=== PATIENT | female | born 1970 | race Two or more races ===

== ENCOUNTER → 2023-01-13 08:35 | Outpatient (BNVA) | payer BC, SELFPAY | PROVIDERS: PCP Hospitalist; Visit Provider Nurse Practitioner Family ==

== ENCOUNTER 2023-03-21 08:03 | Outpatient (REF) | payer BC, SELFPAY ==
--- NOTE | 2023-03-21 08:13 | EEG_ITS ---
FINDINGS: Waking background activity consists of a well defined, moderate-voltage 9 to 10 hertz posterior alpha frequency intermixed anteriorly with low voltage fast frequencies. It attenuates well with eye opening. Photic stimulation is without activation. Hyperventilation was omitted. No sleep stages are identified. No focal, lateralizing, or paroxysmal discharges were seen. IMPRESSION: This waking EEG is within normal limits. MD MAGDALENE Serrano/DONIS / [id number]
== END 2023-03-21 08:04 | disposition home or self-care (01) ==
LOC: HO.NEURO 08:03
PROVIDERS: PCP Hospitalist; Visit Provider Nurse Practitioner Family
DX: R42 Dizziness and giddiness (principal); R55 Syncope and collapse; R43.1 Parosmia
CPT/HCPCS: 95816

== ENCOUNTER 2023-05-04 08:06 | Outpatient (AMB) | payer BC, SELFPAY ==
[2023-05-04 08:08] VITALS: BP 128/92; PULSE 73; O2SAT 96; BMI 30.3
--- NOTE | 2023-05-04 08:08 | MHC.OFFVIS ---
Intake Vital Signs 05/04/23 08:08 Height 5 ft 5 in Weight 182 lb 6 oz BMI 30.3 BP 128/92 H Blood Pressure Location Rt brachial Position Sitting Pulse 73 Pulse Source Pulse Oximeter Pulse Oximetry (%) 96 Oxygen Delivery Method Room Air Intake Visit Reasons: 3m follow up Headache - LVM Intake Note: Patient presents for 3 month follow up headache. Pateint states My headaches are non existent i get them here and there but not like they were Allergies No Known Allergies Allergy (Verified 05/04/23 08:10) HPI HPI Comments History of Present Illness Details 52-yr-old female presents for f/u visit. Pt denies any significant interval medical changes. Pt reports her migraine w/ aura episodes are much less frequent and less intense. Has not needed to try the Sumatriptan yet. EEG was normal. HST- not enough dadat was collected, pt needs to repeat study PFSH Surgical History Hx of cholecystectomy Family History Father Diabetes COPD (chronic obstructive pulmonary disease) Personal history of alcoholism Mother Hypertension Brother Hypertension Social History Alcohol intake: current Alcohol intake frequency: a few times a week Patient Tobacco Use Status: Never used Tobacco Review of Systems Const All systems reviewed & are unremarkable except as noted in HPI and below Physical Exam Vital Signs: Last Vital Signs Pulse 73 05/04/23 08:08 BP 128/92 H 05/04/23 08:08 Pulse Ox 96 05/04/23 08:08 Oxygen Delivery Method Room Air 05/04/23 08:08 BMI result Body Mass Index 30.3 Const General: cooperative and no acute distress Orientation/consciousness: patient oriented x3 HEENT Head: Yes normocephalic Resp Effort & Inspection: normal respiratory effort and able to speak in complete sentences Neuro General: patient oriented x3, gait normal and CN's II-XI intact bilaterally Cognition (Neuro): normal cognition Motor exam (neuro): 5/5 motor strength present throughout Psych Appearance: grossly normal Mental Status: mental status grossly normal Speech and movement: Normal speech and movement present Affect: normal affect Attitude: cooperative Thought process: Normal thought process present Thought content: Normal thought content present Insight: Good insight present (Psych) Judgement: Good judgement present (Psych) Assessment & Plan Assessment & Plan (1) Migraine with aura: Code(s): G43.109 - Migraine with aura, not intractable, without status migrainosus (2) Olfactory aura: Comment: EEG- normal. Likely migraine aura Code(s): R43.1 - Parosmia (3) Snoring: Code(s): R06.83 - Snoring (4) Excessive daytime sleepiness: Code(s): G47.19 - Other hypersomnia (5) Witnessed episode of apnea: Code(s): R06.81 - Apnea, not elsewhere classified Plan Repeat HST- message sent to reschedule EEG- normal, olfactory aura is likely migraine aura ? For acute headache treatment: Discussed importance of taking acute medications at the first sign of headache,. When needed, trial Sumatriptan 100mg tab, 1/2 - 1 tab (50-100mg) at onset of headache, may repeat in 2 hours. Max of 2 tabs (200mg) per 24 hours. May adjunct with OTC Tylenol 650mg q 4 hours, Ibuprofen 600mg q 6 hours, or Naproxen 440mg q 12 hrs prn. Previous acute migraine medication trials: Ibuprofen. Did try a sample of Nurtec- which seemed to help. Acute migraine medication contraindications: None at this time ? For headache prevention medication: Will consider if attack frequency/severity worsens. Previous migraine prevention medication trials: None Migraine prevention medication contraindications: None ? Monitor episodes of feeling flushed and dizzy. ? f/u in 6 months or sooner prn Coding Level of Care Code Est Pt Level 4 (25706) Diagnoses Migraine with aura G43.109 Olfactory aura R43.1 Snoring R06.83 Excessive daytime sleepiness G47.19 Witnessed episode of apnea R06.81
== END 2023-05-04 08:30 | disposition home or self-care (01) ==
PROVIDERS: Visit Provider Nurse Practitioner Family
DX: G43.109 Migraine with aura, not intractable, without status migrainosus (principal); R43.1 Parosmia; R06.83 Snoring; G47.19 Other hypersomnia; R06.81 Apnea, not elsewhere classified
CPT/HCPCS: 99214

== ENCOUNTER → 2023-05-04 08:06 | Outpatient (BNVA) | payer BC, SELFPAY | PROVIDERS: Visit Provider Nurse Practitioner Family ==

== ENCOUNTER 2024-02-07 10:32 | Outpatient (AMB) | payer BC, SELFPAY ==
--- NOTE | 2024-02-07 10:49 | MHC.OFFVIS ---
Vital Signs 02/07/24 10:51 Height 5 ft 5 in Weight 196 lb BMI 32.6 BP 122/88 Blood Pressure Location Rt brachial Position Sitting Pulse 67 Pulse Source Pulse Oximeter Pulse Oximetry (%) 99 Intake Visit Reasons: 6m follow up Headache-LVM Intake Note: Patient presents for 6 month follow up. patient has no issues or concerns today. Allergies No Known Allergies Allergy (Verified 05/04/23 08:10) Medication List - Last Reconciled 02/07/24 by KAY Reese bupropion HCl XL 300 mg PO QAM cetirizine (Zyrtec) 10 mg PO DAILY PRN conjugated estrogens PO lisinopril 40 mg PO DAILY multivitamin 1 tab PO DAILY sumatriptan succinate 50 - 100 mg orally at onset of headache, may repeat in 2 hrs PRN; max 2 tabs per day or 4 tabs/week (may take with Ibuprofen) 30 days HPI Comments Details: 53-yr-old female presents for f/u visit. Having headaches once a week, which are responding to Aleve and rest. Occasional will wake up smelling a burning sensation a/w facial tingling- thinks maybe left sided. The tingling resolves once she is up and moving. The smell just goes away on its own. No tongue biting, loss of urine control. Overall waking up stiffer/tighter, better once she starts moving. She is exercising a bit less, as she cannot tolerate it. She has episodes of left chest pain, left upper arm pain, SOB. This started years ago, but is worsening. She had a stress test at least 3 yrs ago, which was normal, but the test did not elicit these s/s. Had a 24 hr Holter x's- but did not take a walk during that study. Denies usual left shoulder pain or limited shoulder ROM. 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 She notes she has gained some weight. Feels more hungry. She has stopped Bupropion. She is more tired. She has not yet completed HST. 1st attempt to do HST did not record any data. PFSH Surgical History Hx of cholecystectomy Family History Father Diabetes COPD (chronic obstructive pulmonary disease) Personal history of alcoholism Mother Hypertension Brother Hypertension Social History Alcohol intake: current Alcohol intake frequency: a few times a week Patient Tobacco Use Status: Never used Tobacco Physical Exam Vital Signs: Last Vital Signs Pulse 67 02/07/24 10:51 BP 122/88 02/07/24 10:51 Pulse Ox 99 02/07/24 10:51 BMI result Body Mass Index 32.6 Const General: cooperative and no acute distress Orientation/consciousness: patient oriented x3 Resp Effort & Inspection: normal respiratory effort and able to speak in complete sentences Neuro General: patient oriented x3 Cranial nerves: Yes CN's II-XII intact bilaterally Cognition (Neuro): normal cognition Psych Appearance: grossly normal Mental Status: mental status grossly normal Speech and movement: Normal speech and movement present Affect: normal affect Attitude: cooperative Assessment & Plan Assessment & Plan (1) Migraine with aura: Code(s): G43.109 - Migraine with aura, not intractable, without status migrainosus Category: Medical (2) Chest pain on exertion: Code(s): R07.9 - Chest pain, unspecified Category: Medical (3) SOB (shortness of breath) on exertion: Code(s): R06.02 - Shortness of breath Category: Medical (4) Snoring: Code(s): R06.83 - Snoring Category: Medical (5) Excessive daytime sleepiness: Code(s): G47.19 - Other hypersomnia Category: Medical (6) Witnessed episode of apnea: Code(s): R06.81 - Apnea, not elsewhere classified Category: Medical Plan Repeat HST- message sent to reschedule Will take the liberty of referring pt for cardiology consult, as her episodes of left chest pain/SOB on exertion are increasing and limiting her physical activity, which is likely playing a role in her recent wt gain.. ? ? For acute headache treatment: Take acute medications at the first sign of headache,. When needed, trial Sumatriptan 100mg tab, 1/2 - 1 tab (50-100mg) at onset of headache, may repeat in 2 hours. Max of 2 tabs (200mg) per 24 hours. May adjunct with OTC Tylenol 650mg q 4 hours, Ibuprofen 600mg q 6 hours, or Naproxen 440mg q 12 hrs prn. May use Naproxen prn. Previous acute migraine medication trials: Ibuprofen. Did try a sample of Nurtec- which seemed to help. Acute migraine medication contraindications: None at this time ? For headache prevention medication: Will consider if attack frequency/severity worsens. Previous migraine prevention medication trials: None Migraine prevention medication contraindications: None ? f/u in 6 months or sooner prn Orders: Referrals Cardiology Referral R06.02 - Shortness of breath, R07.9 - Chest pain, unspecified Coding Level of Care Code Est Pt Level 4 (40739) Diagnoses Migraine with aura G43.109 Chest pain on exertion R07.9 SOB (shortness of breath) on exertion R06.02 Snoring R06.83 Excessive daytime sleepiness G47.19 Witnessed episode of apnea R06.81
[2024-02-07 10:51] VITALS: BP 122/88; PULSE 67; O2SAT 99; BMI 32.6
== END 2024-02-07 11:24 | disposition home or self-care (01) ==
PROVIDERS: PCP Hospitalist; Visit Provider Nurse Practitioner Family
DX: G43.109 Migraine with aura, not intractable, without status migrainosus (principal); R07.9 Chest pain, unspecified; R06.02 Shortness of breath; R06.83 Snoring; G47.19 Other hypersomnia; R06.81 Apnea, not elsewhere classified
CPT/HCPCS: 99214

== ENCOUNTER → 2024-02-07 10:32 | Outpatient (BNVA) | payer BC, SELFPAY | PROVIDERS: PCP Hospitalist; Visit Provider Nurse Practitioner Family ==

== ENCOUNTER → 2024-03-21 11:03 | Outpatient (REF) | payer BC, SELFPAY | LOC: HO.SL 11:03 | PROVIDERS: Visit Provider Nurse Practitioner Family | DX: G47.33 Obstructive sleep apnea (adult) (pediatric) (principal); R06.83 Snoring; G47.19 Other hypersomnia | CPT/HCPCS: 95806 ==

== ENCOUNTER → 2024-03-21 11:13 | Outpatient (BNV) | payer BC, SELFPAY | PROVIDERS: Visit Provider Psychiatry & Neurology Neurology | DX: G47.33 Obstructive sleep apnea (adult) (pediatric) (principal) | CPT/HCPCS: 95806 ==

== ENCOUNTER 2024-05-02 11:15 | Outpatient (AMB) | payer BC, SELFPAY ==
[2024-05-02 11:19] VITALS: BP 126/90; PULSE 61; BMI 32.2
--- NOTE | 2024-05-02 11:19 | MHC.OFFVIS ---
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 She states that she has had chest pains for many years now. She describes rather exertional pain that whenever she is exerting physically, she can get a discomfort in the chest which is on the left side. Travels to the left shoulder area. After she rests and relaxes, it gets better. Appears to be suggestive of exertional angina. She states she has had a stress test few years back but that was apparently unremarkable and after that not followed through. More recently, she had a hypertensive urgency situation leading to ER visit but EKG and troponins were unremarkable at that time. Patient takes lisinopril long-term but more recently, she has had addition of hydrochlorothiazide. Today's blood pressure is still on the higher side with regard diastolic. No previously diagnosed coronary disease or any other cardiac issues. [facility] Medical History (Updated 05/02/24 @ 11:45 by Shahriar Lemon MD) Essential hypertension Surgical History Hx of cholecystectomy Family History (Updated 05/02/24 @ 11:31 by Shahriar Lemon MD) Father Diabetes COPD (chronic obstructive pulmonary disease) Personal history of alcoholism Heart disease Mother Hypertension Brother Hypertension Social History Alcohol intake: current Alcohol intake frequency: a few times a week Patient Tobacco Use Status: Never used Tobacco Review of Systems Const Denies chills, Denies daytime sleepiness, Denies fatigue, Denies fever(s), Denies poor appetite, Denies snoring, Denies stops breathing during sleep, Denies weakness, Denies weight gain and Denies weight loss Eyes Denies loss of vision ENT Denies dizziness and Denies hearing loss Card Denies chest pain, Denies irregular heart rhythm, Denies claudication, Denies leg edema, Denies lightheadedness, Denies palpitations, Denies dyspnea on exertion and Denies orthopnea Resp Denies cough, Denies excessive phlegm production, Denies dyspnea on exertion, Denies snoring and Denies wheezing GI Denies abdominal pain, Denies hematochezia, Denies change in bowel habits, Denies nausea and Denies vomiting Denies urinary frequency and Denies dysuria Musc Denies arthralgias, Denies muscle weakness, Denies numbness and Denies other Skin/Breast Denies nail changes and Denies rash Neuro Denies Abnormal speech present, Denies dizziness, Denies loss of vision, Denies memory loss, Denies numbness and Denies weakness Psych Denies depression and Denies memory loss Endo Denies fatigue and Denies palpitations Wan/Lymph Denies easy bruising Aller/Immun Denies wheezing Physical Exam Vital Signs: Last Vital Signs Pulse 61 05/02/24 11:19 BP 126/90 H 05/02/24 11:19 BMI result Body Mass Index 32.2 Const General: comfortable and no acute distress Orientation/consciousness: patient oriented x3 HEENT Other: Unremarkable Head: Yes normal to inspection Neck Neck: Yes normal visual inspection Chest Chest palpation & inspection: normal inspection of the chest Resp Auscultation: clear to auscultation bilaterally Cardio Palpation: normal PMI Heart sounds: S1 normal heart sound present, S2 normal heart sound present, no gallops, no murmurs and no rubs GI Palpation (GI): Soft to palpation Back/Spine/Pelvis Other: unremarkable Skin General skin exam: no rashes or lesions noted Neuro General: patient oriented x3 Speech: No Abnormal speech present Extrem General: Yes normal to inspection Psych Mental Status: mental status grossly normal Assessment & Plan Assessment & Plan (1) Chest pain on exertion: Code(s): R07.9 - Chest pain, unspecified Category: Medical Plan: Recent EKG shows underlying sinus rhythm with no ischemic findings. High sensitivity troponins as well as cardiac BNP within normal limits. Symptoms suggestive of angina. Can also related to uncontrolled blood pressures. We will start with an echocardiogram and stress test. Beyond that, may need a diagnostic catheterization. We discussed about these today. If any resting chest pain episodes, then we will need to go to ER. She has cut back on a lot of activity because of these pains. Can keep it that way till workup is completed. Avoid sumatriptan. (2) Essential hypertension: Code(s): I10 - Essential (primary) hypertension Category: Medical Plan: Takes lisinopril long-term. Per patient, recently started hydrochlorothiazide. Advised to do home blood pressures. May need additional medications like beta-blockers or amlodipine. May also need secondary hypertension workup. Orders: Orders CA stress test Today R07.2 - Precordial pain, R07.9 - Chest pain, unspecified CA echo transthoracic complete Today R07.9 - Chest pain, unspecified NM cardiolite stress test Today R07.9 - Chest pain, unspecified Coding Level of Care Code New Pt Level 4 (05252) Diagnoses Chest pain on exertion R07.9 Essential hypertension I10
== END 2024-05-02 11:43 | disposition home or self-care (01) ==
PROVIDERS: PCP Hospitalist; Visit Provider Internal Medicine
DX: R07.9 Chest pain, unspecified (principal); I10 Essential (primary) hypertension
CPT/HCPCS: 99204

== ENCOUNTER → 2024-05-02 11:15 | Outpatient (BNVA) | payer BC, SELFPAY | PROVIDERS: PCP Hospitalist; Visit Provider Internal Medicine ==

== ENCOUNTER → 2024-06-13 08:10 | Outpatient (REF) | payer BC, SELFPAY ==
--- NOTE | ~2024-06-13 | NM_ITS ---
EXERCISE MYOCARDIAL PERFUSION STUDY INDICATION: Chest pain TECHNIQUE: The patient was brought in for an exercise perfusion study on 06/13/2024. Patient performed exercise as per Juan protocol and was injected 25 mCi of sestamibi once target heart rate was achieved. Images were obtained using the SPECT gamma camera interlaced with the gating device. Images were obtained in supine position. Resting perfusion study was performed on 06/17/2024. Patient was administered 25 mCi of sestamibi intravenously at rest. Images were then obtained in supine position. Total DLP 108 mGy-cm. Images were processed with the software and compared side to side in short axis, horizontal long axis and vertical long axis views. FINDINGS: Raw aquisition reviewed. The stress perfusion study showed no significant perfusion abnormality. Both uncorrected as well as CT attenuation corrected images were reviewed. The gated study shows normal LV systolic function with calculated LVEF of > 70%. LV cavity is normal in size. The gated study shows normal wall thickening and contraction of segments. Resting study shows no significant perfusion abnormality. Gating at rest reveals normal wall motion with ejection fraction at > 70%. The findings are consistent with no clear reversible or fixed perfusion abnormality. NM/NM cardiolite stress test IMPRESSION: 1. Myocardial perfusion imaging study shows probably normal myocardial perfusion. 2. Gated LVEF is > 70% during stress and rest. 3. Transient ischemic dilatation not present. EKG component of the test reported separately. Electronically signed by: Shahriar Lemon MD 06/17/2024 04:12 PM EDT
--- NOTE | 2024-06-13 08:15 | CA_ITS ---
Acquisition Time: 2024-06-13 08:49:36 Total Exercise Time: 00:06:30 Test Indications: CP,UNSPECIFIED, CP ON EXERTION Medications: SEE MED SHEET Protocol: SUNSHINE Max HR: 155 BPM 92% of Pred: 167 BPM Max BP: 158/092 mmHG Max Work Load: 7.7 METS Exerise stress test exercise 6 min 30 sec of Sunshine protocol acheiving 92% MPHR with 3/10 chest presure at peak, with mild SOB, without arrhhythmias, with normotensive response to exercise, without EKG changes. Chest pressure resolved with rest. Nuclear images pending. Test reviewed with Dr. Jovel. Referred By: Shahriar Lemon Overread By: Yvette Sandoval
--- NOTE | 2024-06-13 08:15 | CA_ITS ---
Transthoracic Echocardiogram Patient (Last, First, Middle): Evelyn Paul R Gender: Female Date of : 1970 Age: 53 Procedure Date: 06/13/2024 Procedure Type: Transthoracic Echocardiogram Location: OP Height: 165.1 cm Weight: 86.18 kg BSA: 1.94 m2 Heart Rate: bpm BP: 132 / 90 mmHg [employer] Ii Assembler: VANDANA Referring MD: Shahriar Lemon MD Slab Inspector: Archie Powell MD Symptoms: R07.9 - Chest pain, unspecified Study Quality: Fair ECG Rhythm: Sinus Conclusions: - Essentially normal study Findings Left Ventricle Normal left ventricular size, thickness, and systolic function. The visually estimated ejection fraction is between 60-65%. Spectral Doppler is indicative of a normal filling pattern. Right Ventricle Normal right ventricular cavity size and systolic function. Atria The left atrium is normal in size. Interatrial shunt cannot be excluded. The right atrium is normal in size. Aortic Valve The aortic valve structure and function is likely normal. There is no aortic valve stenosis. There is no aortic valve regurgitation. Mitral Valve Normal mitral valve structure and function. There is trace mitral valve regurgitation. There is no mitral valve stenosis. Pulmonic Valve The pulmonic valve was not well visualized. Tricuspid Valve Likely normal tricuspid valve structure and function. There is mild tricuspid valve regurgitation. The right ventricular systolic pressure is normal. The right ventricular systolic pressure is 28 mmHg. Normal right atrial pressure. There is no evidence of pulmonary hypertension. Great Vessels All visible segments of the aorta are normal in size. The pulmonary artery was not well visualized. Venous The inferior vena cava is normal in size and collapses greater than 50% with inspiration. Pericardium/Pleural There is no evidence of pericardial effusion. Prior Study Comparison No prior study available for comparison. Measurements 2D Linear Measurements IVSd: 1.10 0.6-0.9/0.6-1.0 cm LVIDd: 3.61 3.9-5.3/4.2-5.9 cm LVIDd Index: 1.86 2.4-3.2/2.2-3.1 cm/m2 LVIDs: 2.05 2.0-3.6 cm LVPWd: 0.94 0.7-1.1 cm LA Diam: 3.20 2.7-3.8/3.0-4.0 cm LAIDs Index: 1.65 1.5-2.3 cm/m2 LV Mass: 138.15 67-162/88-224 g LV Mass Index: 71.21 43-95/49-115 g/m2 LVOT Diam: 1.90 3.0+(-)1.3 cm 2D Systolic Function EF 4C: 64.90 >55% EF 2C: 65.70 >55% EF BiP: 65.00 >55% Mitral Valve MV Pk E: 0.96 MV PK A: 0.74 MV Decel Time: 222.00 E/A: 1.30 E'Lateral: 10.00 E'Medial: 8.38 E/E' Med: 11.50 E/E' Lat: 9.60 PHT: 65.00 MVA PHT: 3.38 Decel Towner: 4.35 Aortic Valve AoV Pk David: 1.33 AoV Mn David: 0.99 AoV VTI: 0.30 AoV Pk Grad: 7.00 Aov Mn Grad: 4.00 ARVIND Cont.VTI: 2.42 LVOT LVOT Pk David: 1.07 LVOT Mn David: 0.81 LVOT VTI: 0.26 LVOT Pk Grad: 5.00 LVOT Mn Grad: 3.00 LVOT Diam: 1.90 LVOT Area: 2.84 Diastolic Function MV Pk E: 0.96 MV Pk A: 0.74 E/A: 1.30 E'Medial: 8.38 E/E' Med: 11.50 E' Laterial: 10.00 E/E' Lat: 9.60 Right Ventricle TAPSE (mm): 25.40 TVS' David: 11.90 Tricuspid Valve TR Pk David: 2.48 TR Pk Grad: 25.00 RA Press: 3.00 RVSP: 28.00 Great Vessels Aorta Sinus of Valsalva: 3.22 2.0-3.[address] Ridge: 2.50 1.7-3.4 cm Ao Asc: 3.40 2.1-3.4 cm Updated in Other Vendor System with Status of Final Archie Powell MD electronically signed on 06/13/2024 12:40:11 PM with status of Final
== END ==
LOC: HO.CARD 08:10
PROVIDERS: PCP Hospitalist; Visit Provider Internal Medicine
DX: R07.9 Chest pain, unspecified (principal); R07.2 Precordial pain
CPT/HCPCS: 78452; 93017; 93306; A9500

== ENCOUNTER → 2024-06-13 08:15 | Outpatient (BNV) | payer BC, SELFPAY | PROVIDERS: PCP Hospitalist; Visit Provider Internal Medicine Cardiovascular Disease | DX: R07.9 Chest pain, unspecified (principal); I36.1 Nonrheumatic tricuspid (valve) insufficiency; R06.02 Shortness of breath | CPT/HCPCS: 78452; 93016; 93018; 93320; 93350 ==

== ENCOUNTER 2024-06-18 13:57 | Outpatient (AMB) | payer BC, SELFPAY ==
--- NOTE | 2024-06-18 14:17 | MHC.OFFVIS ---
Vital Signs 06/18/24 14:23 Height 5 ft 3 in BMI Reason not done Patient refused/unable BP 130/78 Blood Pressure Location Lt brachial Position Sitting Pulse 73 Pulse Source Pulse Oximeter Intake Visit Reasons: F/U after testing Allergies No Known Allergies Allergy (Verified 05/04/23 08:10) Medication List - Last Reconciled 06/18/24 by Shahriar Lemon MD bupropion HCl XL 300 mg PO QAM cetirizine (Zyrtec) 10 mg PO DAILY PRN hydrochlorothiazide 25 mg PO DAILY lisinopril 40 mg PO DAILY multivitamin 1 tab PO DAILY sumatriptan succinate 50 - 100 mg orally at onset of headache, may repeat in 2 hrs PRN; max 2 tabs per day or 4 tabs/week (may take with Ibuprofen) 30 days HPI Comments Details: Evelyn returns for follow-up. Recently seen in consultation for chest pain. She has had pains for many years. She believes it is rather exertional. After she rests and relaxes, it gets better. Description suggestive of rather exertional angina. Recently had hypertensive urgency type situation that led to ER visit but EKGs/troponins unremarkable. She has been on lisinopril long-term. She believes her diastolic BPs were generally high but they are better after starting hydrochlorothiazide. Otherwise, no documented coronary disease in the past. Since last seen, she has completed an echocardiogram and stress test. [facility] Medical History (Updated 05/02/24 @ 11:45 by Shahriar Lemon MD) Essential hypertension Surgical History Hx of cholecystectomy Family History (Updated 05/02/24 @ 11:31 by Shahriar Lemon MD) Father Diabetes COPD (chronic obstructive pulmonary disease) Personal history of alcoholism Heart disease Mother Hypertension Brother Hypertension Social History Alcohol intake: current Alcohol intake frequency: a few times a week Patient Tobacco Use Status: Never used Tobacco Review of Systems Const Denies weakness ENT Denies dizziness Card Denies chest pain, Denies chest pain with activity, Denies syncope, Denies rapid heart rate, Denies pedal edema, Denies edema, Denies leg edema, Denies lightheadedness, Denies palpitations, Denies dyspnea, Denies dyspnea on exertion and Denies orthopnea Resp Denies cough, Denies dyspnea and Denies dyspnea on exertion GI Denies hematochezia and Denies change in stool character Musc Denies abnormal gait, Denies muscle cramps, Denies muscle weakness, Denies numbness, Denies radiating pain into limb and Denies tingling Neuro Denies abnormal gait, Denies dizziness, Denies syncope, Denies numbness, Denies tingling and Denies weakness Endo Denies palpitations Physical Exam Vital Signs: Last Vital Signs Pulse 73 06/18/24 14:23 BP 130/78 06/18/24 14:23 Const General: comfortable and no acute distress Orientation/consciousness: patient oriented x3 HEENT Other: Unremarkable Head: Yes normal to inspection Neck Neck: Yes normal visual inspection Chest Chest palpation & inspection: normal inspection of the chest Resp Auscultation: clear to auscultation bilaterally Cardio Palpation: normal PMI Heart sounds: S1 normal heart sound present, S2 normal heart sound present, no gallops, no murmurs and no rubs GI Palpation (GI): Soft to palpation Back/Spine/Pelvis Other: unremarkable Skin General skin exam: no rashes or lesions noted Neuro General: patient oriented x3 Extrem General: Yes normal to inspection Psych Mental Status: mental status grossly normal Office Procedures EKG Details: EKG with underlying sinus rhythm at 73/Min; no significant ST-T [place]; [place]. [id number], Complete Assessment & Plan Assessment & Plan (1) Chest pain on exertion: Code(s): R07.9 - Chest pain, unspecified Category: Medical Plan: Baseline EKG shows no ischemic findings. In the echocardiogram, LVEF 60-65%; normal diastolic filling and otherwise unremarkable. In the stress test, she was able to exercise for 6 minutes and 30 seconds; reached 7.7 METS; there is description of chest pressure at peak exercise but patient denies it and she states that she just felt short of breath but no chest pain. Perfusion component shows no abnormalities. Overall, patient has symptoms suggestive of exertional chest pain but testing is unremarkable. Then we discussed about a coronary CTA and she is willing to do that. We will arrange the same. Avoid strenuous physical activity. Avoid sumatriptan. (2) Essential hypertension: Code(s): I10 - Essential (primary) hypertension Category: Medical Plan: Takes Lisinopril long-term. Per patient, recently started Hydrochlorothiazide. Seems better. Plan Total time spent including review of data, counseling, documentation, coordination of care-32 minutes. Orders: Orders CT Cardiac Coronary Angio Today I25.10 - Atherosclerotic heart disease of [place] coronary artery without angina pectoris Basic Metabolic Panel Today R07.9 - Chest pain, unspecified Coding Level of Care Code Est Pt Level 4 (05072) Diagnoses Chest pain on exertion R07.9 Essential hypertension I10 CPT Codes EKG - CPT: 38317-[id number], Complete ([id number])
[2024-06-18 14:23] VITALS: BP 130/78; PULSE 73
== END 2024-06-18 14:42 | disposition home or self-care (01) ==
PROVIDERS: PCP Hospitalist; Visit Provider Internal Medicine
DX: R07.9 Chest pain, unspecified (principal); I10 Essential (primary) hypertension
CPT/HCPCS: 93010; 99214

== ENCOUNTER → 2024-06-18 13:57 | Outpatient (BNVA) | payer BC, SELFPAY | PROVIDERS: PCP Hospitalist; Visit Provider Internal Medicine | DX: R07.9 Chest pain, unspecified (principal); I10 Essential (primary) hypertension; Z79.899 Other long term (current) drug therapy | CPT/HCPCS: 93005 ==

== ENCOUNTER 2024-08-29 10:41 | Outpatient (AMB) | payer BC, SELFPAY ==
--- OUTSIDE RECORDS SUMMARY | 2024-08-29 10:44 | XMS_ITS | Patient Health Record ---
Author Organization [facility] Address [address] [place] [address] Care Team Providers Care Clinical Team Manager Name Role Phone ARNAUD BROWNE Primary Care Provider Allergies Allergen (clinical drug ingredient) Drug/Non Drug Allergy documented on EMR Reaction Allergy Type Onset Date Status amlodipine Amlodipine rash Drug Allergy Activ e Results Component Value Reference Range Notes Lipid Panel-[id number] Reviewed date:05/29/2024 10:38:01 AM Interpretation: Performing Lab:[facility], [address], Phone - [phone], Director - Zoya Notes/Report: Cholesterol, Total 245 100-199 mg/dL Triglycerides 95 0-149 mg/dL HDL Cholesterol 69 >39 mg/dL VLDL Cholesterol Savage 16 5-40 mg/dL LDL Chol Calc (NIH) 160 0-99 mg/dL URINE CULTURE Reviewed date:04/13/2024 03:08:57 PM Interpretation: Performing Lab: Notes/Report: Original Ordering Provider: LARY GALLAGHER MD Specimen Source: URINE,CLEAN CATCH Collected: Apr 11, 2024 [employer], a member of [facility] Organism: ESCHERICHIA COLI [address] [place] [address] Antibiotics MORELIA Interpretation Cytotechnologist Supervisor - Delia Leyva MD TRIMETHOPRIM/SULFAMETHOXAZOLE <=20 Sensitive AMOXICILLIN/CLAVULANIC ACID <=2 Sensitive AMPICILLIN/SULBACTAM <=2 Sensitive CEFAZOLIN,URINE <=1 Sensitive CEFOXITIN <=4 Sensitive CEFTAZIDIME <=0.5 Sensitive CEFTRIAXONE <=0.25 Sensitive CEFEPIME <=0.12 Sensitive CIPROFLOXACIN <=0.06 Sensitive GENTAMICIN <=1 Sensitive LEVOFLOXACIN <=0.12 Sensitive MEROPENEM <=0.25 Sensitive NITROFURANTOIN <=16 Sensitive AMIKACIN 2 Sensitive PIPERACILLIN/TAZOBACTAM <=4 Sensitive URINE CULTURE ESCHERICHIA COLI URINE CULTURE COLONY COUNT URINE CULTURE >100,000 URINALYSIS Reviewed date:04/12/2024 08:01:21 AM Interpretation: Performing Lab: Notes/Report: Original Ordering Provider: LARY GALLAGHER MD [employer] [address] Cytotechnologist Supervisor - Delia Leyva MD GLUCOSE, (UA) NEGATIVE NEGATIVE mg/dL BILIRUBIN, URINE NEGATIVE NEGATIVE KETONE, URINE NEGATIVE NEGATIVE mg/dL SPECIFIC GRAVITY, URINE 1.026 1.003-1.030 BLOOD, URINE NEGATIVE NEGATIVE PH, URINE 6.0 5.0-8.0 PROTEIN, URINE NEGATIVE <= TRACE mg/dl UROBILINOGEN, URINE 1.0 0.2-1.0 E.U./dL NITRITE, URINE NEGATIVE NEGATIVE LEUKOCYTE ESTERASE, URINE MODERATE NEGATIVE RBC, URINE 2 0-4 /HPF WBC, URINE 22 0-4 /HPF EPITH CELLS, URINE 76 0-60 /LPF BACTERIA, URINE HEAVY NEGATIVE HYALINE CAST, URINE 2 0-3 /LPF Ferritin-[id number] Reviewed date:03/18/2024 07:55:48 AM Interpretation: Performing Lab:[facility], [address] [facility], [place], Phone - [phone], Director - Zoya Notes/Report: Ferritin 73 15-150 ng/mL Vitamin [id number] Reviewed date:03/18/2024 07:55:49 AM Interpretation: Performing Lab:[facility] [place], [address] [place] [address], Phone - [phone], Director - Zoya Notes/Report: Vitamin B12 367 544-0460 pg/mL Vitamin D, 84-Xsizulr-[id number] Reviewed date:03/18/2024 07:55:51 AM Interpretation: Performing Lab:[facility] [place], [address] [place] [address], Phone - [phone], Director - Zoya Notes/Report: Vitamin D, 25-Hydroxy 36.2 30.0-100.0 ng/mL Vitamin D deficiency has been defined by the [place] [employer] and an Endocrine Society practice guideline as a level of serum 25-OH vitamin D less than 20 ng/mL (1,2). The Endocrine Society went on to further define vitamin D insufficiency as a level between 21 and 29 ng/mL (2). 1. IOM ([place] of [employer]). 2010. Dietary reference intakes for calcium and D. [place]: The National Academies Press. 2. Byron MF, Julien GUAJARDO, Nata MULLER, et al. Evaluation, treatment, and prevention of vitamin D deficiency: an Endocrine Society clinical practice guideline. JCEM. 2010; 96(7):1911-30. Magnesium-[id number] Reviewed date:03/18/2024 07:55:54 AM Interpretation: Performing Lab:[facility] [place], [address] [place] [address], Phone - [phone], Director - Zoya Notes/Report: Magnesium 2.2 1.6-2.3 mg/dL Iron and TIBC-[id number] Reviewed date:03/18/2024 07:55:56 AM Interpretation: Performing Lab:[facility] [place], [address] [place] [address], Phone - [phone], Director - Zoya Notes/Report: Iron Bind.Cap.(TIBC) 281 250-450 ug/dL UIBC 163 131-425 ug/dL Iron 118 27-159 ug/dL Iron Saturation 42 15-55 % CBC, Platelet, No Differenti al-[id number] Reviewed date:03/18/2024 07:55:58 AM Interpretation: Performing Lab:[facility] [place], [address] [place] [address], Phone - [phone], Director - MDJodry Notes/Report: WBC 6.7 3.4-10.8 x10E3/uL RBC 4.72 3.77-5.28 x10E6/uL Hemoglobin 13.7 11.1-15.9 g/dL Hematocrit 41.8 34.0-46.6 % MCV 89 79-97 fL MCH 29.0 26.6-33.0 pg MCHC 32.8 31.5-35.7 g/dL RDW 13.1 11.7-15.4 % Platelets 302 150-450 x10E3/uL Lipid Panel-[id number] Reviewed date:03/18/2024 07:56:01 AM Interpretation: Performing Lab:[facility], [address] [facility], [place], Phone - [phone], Director - Zoya Notes/Report: Cholesterol, Total 224 100-199 mg/dL Triglycerides 83 0-149 mg/dL HDL Cholesterol 64 >39 mg/dL VLDL Cholesterol Savage 15 5-40 mg/dL LDL Chol Calc ([facility]) 145 0-99 mg/dL Comp. Metabolic Panel (14)-3 Reviewed date:03/18/2024 07:55:43 AM Interpretation: Performing Lab:[facility], [address] [facility] [facility], [place], Phone - [phone], Director - Shajiy Notes/Report: Glucose 94 70-99 mg/dL BUN 20 6-24 mg/dL Creatinine 0.98 0.57-1.00 mg/dL eGFR 69 >59 mL/min/1.73 BUN/Creatinine Ratio 20 9-23 Sodium 141 134-144 mmol/L Potassium 4.1 3.5-5.2 mmol/L Chloride 101 96-106 mmol/L Carbon Dioxide, Total 24 20-29 mmol/L Calcium 9.8 8.7-10.2 mg/dL Protein, Total 6.5 6.0-8.5 g/dL Albumin 4.4 3.8-4.9 g/dL Globulin, Total 2.1 1.5-4.5 g/dL Bilirubin, Total 0.6 0.0-1.2 mg/dL Alkaline Phosphatase 76 44-121 IU/L AST (SGOT) 16 0-40 IU/L ALT (SGPT) 20 0-32 IU/L Reason For Referral Reason Evaluation and manag ement Diagnosis 1 Gastro-esophageal re flux disease without esophagitis (K21.9) Referral Organization [facility] Referring Provider First Name ARNAUD Referring Provider Last Name HOLLIE Referring Provider Speciality Internal M edicine Referred Provider Specialty Gastroentero logy General Notes Referral faxed to [facility] - Dept will call patient for scheduling., Corinna Wolf 03/15/2024 04:52:08 PM > Referral Priority Routine Medications Medication SIG (Take, Route, Frequency, Duration) Notes Start Date End Date Status Wegovy 0.25 MG/0.5ML 0.25 mL Subcutaneou s once a week for 30 days Active Multivitamin Active Pravastatin Sodium 20 MG 1 tablet Orally Once a day for 30 days 08/12/2024 Active hydroCHLOROthiazide 25 MG 1 tablet in th e morning Orally Once a day for 30 days 04/17/2024 Active Lisinopril 40 MG TAKE 1 TABLET BY MOUTH EVERY DAY FOR 30 DAYS for 90 days Active Naltrexone HCl 50 MG 1 tablet Orally Onc e a day for 30 days 08/12/2024 Active amLODIPine Besylate 2.5 MG 1 tablet Oral ly Once a day for 30 days 05/18/2023 Not-Taking EpiPen 2-Alistair 0.3 MG/0.3ML as directed In jection as needed for 30 days 04/12/2022 Not-Taking ZyrTEC Allergy Activ e Pantoprazole Sodium 20 MG 1 tablet Orall y Once a day for 30 days 03/13/2024 Active Naltrexone HCl 50 MG 1 tablet Orally Onc e a day for 30 days 06/01/2023 Not-Taking hydrOXYzine HCl 25 MG 1 tablet Orally da caesar for 30 days 04/17/2024 Active Wellbutrin XL 300 MG 1 tablet in the morning Orally Once a day for 90 days Active Immunizations Vaccine Route Administration Date Status Comme nts COVID 19 Pfizer Unknown 01/02/2021 Administered COVID 19 Pfizer Unknown 01/22/2021 Administered COVID Pfizer Unknown 09/30/2021 Administered Flu Shot Unknown 05/26/2022 Administered MMR Unknown 04/26/2022 Administered Shingrix Unknown 04/26/2022 Administered Social History Tobacco Use: Social History Observation Description Date Details (start date - stop date) Never Smoker NA - NA Tobacco Use/Smoking Question Answer Notes Are you a nonsmoker Alcohol Screen (Audit-C) Question Answer Notes Did you have a drink contain ing alcohol in the past year? Yes How often did you have a dri nk containing alcohol in the past year? 2 to 4 times a month (2 points) How many drinks did you have on a typical day when you were drinking in the past year? 1 or 2 drinks (0 point) Points 2 Interpretation Negative Problems Problem Type SNOMED Code ICD Code Onset Dates Problem Status W/U Status Risk Notes Problem Obesity due to excess calories (457132113) Other obesity due to excess calories (E66.09) Active confirmed Problem Mixed hyperlipidemia (520577402) Mixed hyperlipidemia (E78.2) Active confirmed Problem Generalized anxiety disorder (66529249) Generalized anxiety disorder (F41.1) Active confirmed Problem Gastro-esophageal reflux disease without esophagitis (209086477) Gastro-esophageal reflux disease without esophagitis (K21.9) Active confirmed Problem History of bariatric surgical procedure (745934938) Bariatric surgery status (Z98.84) Active confirmed Problem Essential hypertension (16825120) Essential (primary) hypertension (I10) Active confirmed Vital Signs Heart Rate 84 /min 08/12/2024 Temperature 97.7 degrees Fahrenheit 08/12/2024 Blood pressure diastolic 75 mm Hg 08/12/2024 Oximetry 99 % 08/12/2024 Height 65 in 08/12/2024 Blood pressure systolic 140 mm Hg 08/12/2024 Weight 199.4 lbs 08/12/2024 BMI 33.18 kg/m2 08/12/2024 Encounters Encounter Location Date Provider Diagnosis [address] [address] 03/13/2024 LARES GUL Essential (primary) hypertension I10 ; Other obesity due to excess calories E66.09 ; Bariatric surgery status Z98.84 ; Dietary counseling and surveillance Z71.3 ; Gastro-esophageal reflux disease without esophagitis K21.9 ; Shortness of breath R06.02 and Generalized anxiety disorder F41.[address] [address] 04/17/2024 LARES GUL Essential (primary) hypertension I10 ; Bariatric surgery status Z98.84 ; Gastro-esophageal reflux disease without esophagitis K21.9 ; Generalized anxiety disorder F41.1 and Mixed hyperlipidemia E78.[address] [place] [address] 05/29/2024 LARES HOLLIE Essential (primary) hypertension I10 ; Mixed hyperlipidemia E78.2 ; Other obesity due to excess calories E66.09 and Dietary counseling and surveillance Z71.[address] [place] [address] 07/11/2024 LARES HOLLIE Other obesity due to excess calories E66.09 ; Dietary counseling and surveillance Z71.3 and Essential (primary) hypertension I10 [address] [place] [address] 08/12/2024 LARES HOLLIE Other obesity due to excess calories E66.09 ; Dietary counseling and surveillance Z71.3 ; Essential (primary) hypertension I10 and Mixed hyperlipidemia E78.[address] [place] [address] 12/25/[address] [place] [address] 03/13/[address] [place] [address] 05/30/2024 ARNAUD BROWNE Assessments Encounter Date Diagnosis (ICD Code) Assessment Notes Treatment Notes Treatment Clinical Notes Section Notes 03/13/2024 Other obesity due to excess calories (ICD-10 - E66.09) Mrs. Paul is a 53-year-old lady with a history of hypertension, perimenopausal symptoms on Wellbutrin and obesity status post bariatric surgery here for follow up on blood pressure. Plan is as follows: Hypertension. Blood pressure well controlled on amlodipine 2.5 MG and Lisinopril 40 MG daily. Bariatric surgery status. S/p gastric sleeve in 2016 and lost 50-60 lbs. Dietary recommendations. Patient advised to be on low calorie, low carbohydrate diet. Restrict calories to less than 1500 kcal in 24 hours. Low glycemic index foods and encouraged. She may benefit from meal replacements and she is given dietary education materials. Advised to use calorie counter and adhere to portion control. Monthly goal is to lose 4-6 pounds Pharmacotherapy. Options and side effects discussed. She was on Phentermine in the past. She is currently on Wellbutrin which may be combined with Naltrexone for weight loss. Patient encouraged to increase frequency, intensity and duration of exercise. Encouraged to burn at least 250-500 kcal in one session. Also encouraged to do weight training Assess. Different risk factors discussed with the patient and addressed Advise. GERD/small hiatal hernia on recent CT abdomen and pelvis. Start Pantoprazole 20 MG once a day. Referred to GI. Shortness of breath. Ordered echocardiogram. Generalized anxiety disorder. Started on Wellbutrin XL 150 mg daily General health concerns discussed with patient. Scribe services used to formulate this note under HIPAA compliance and under [place] law mandated for scribe services. Patient aware of service. Verbal consent and written consent taken from the patient. Patient understands and verbalizes understanding of the scribes services and all questions answered regarding scribes services. Patient agrees to use of scribes services. 03/13/2024 Essential (primary) hypertension (ICD-10 - I10) Mrs. Palu is a 53-year-old lady with a history of hypertension, perimenopausal symptoms on Wellbutrin and obesity status post bariatric surgery here for follow up on blood pressure. Plan is as follows: Hypertension. Blood pressure well controlled on amlodipine 2.5 MG and Lisinopril 40 MG daily. Bariatric surgery status. S/p gastric sleeve in 2016 and lost 50-60 lbs. Dietary recommendations. Patient advised to be on low calorie, low carbohydrate diet. Restrict calories to less than 1500 kcal in 24 hours. Low glycemic index foods and encouraged. She may benefit from meal replacements and she is given dietary education materials. Advised to use calorie counter and adhere to portion control. Monthly goal is to lose 4-6 pounds Pharmacotherapy. Options and side effects discussed. She was on Phentermine in the past. She is currently on Wellbutrin which may be combined with Naltrexone for weight loss. Patient encouraged to increase frequency, intensity and duration of exercise. Encouraged to burn at least 250-500 kcal in one session. Also encouraged to do weight training Assess. Different risk factors discussed with the patient and addressed Advise. GERD/small hiatal hernia on recent CT abdomen and pelvis. Start Pantoprazole 20 MG once a day. Referred to GI. Shortness of breath. Ordered echocardiogram. Generalized anxiety disorder. Started on Wellbutrin XL 150 mg daily General health concerns discussed with patient. Scribe services used to formulate this note under HIPAA compliance and under [place] law mandated for scribe services. Patient aware of service. Verbal consent and written consent taken from the patient. Patient understands and verbalizes understanding of the scribes services and all questions answered regarding scribes services. Patient agrees to use of scribes services. 04/17/2024 Bariatric surgery status (ICD-10 - Z98.84) Mrs. Paul is a 53-year-old lady with a history of hypertension, perimenopausal symptoms on Wellbutrin and obesity status post bariatric surgery here for follow up on blood pressure. Plan is as follows: Hypertension. Start HCTZ 25 MG daily and continue amlodipine 2.5 MG and Lisinopril 40 MG daily. Hyperlipidemia. Start Rosuvastatin 5 MG once a day. Suggested dietary modifications. Recheck lipid panel. Bariatric surgery status. S/p gastric sleeve in 2016 and lost 50-60 lbs. Dietary recommendations. Patient advised to be on low calorie, low carbohydrate diet. Restrict calories to less than 1500 kcal in 24 hours. Low glycemic index foods and encouraged. She may benefit from meal replacements and she is given dietary education materials. Advised to use calorie counter and adhere to portion control. Monthly goal is to lose 4-6 pounds. She is currently on Wellbutrin which may be combined with Naltrexone for weight loss. Patient encouraged to increase frequency, intensity and duration of exercise. Encouraged to burn at least 250-500 kcal in one session. Also encouraged to do weight training Assess. Different risk factors discussed with the patient and addressed Advise. GERD/small hiatal hernia on recent CT abdomen and pelvis. Continue Pantoprazole 20 MG once a day. Generalized anxiety disorder. continue Wellbutrin XL 300 mg daily and Start hydroxyzine 25 MG once a day. Screening blood work before next appointment. Scribe services used to formulate this note under HIPAA compliance and under [place] law mandated for scribe services. Patient aware of service. Verbal consent and written consent taken from the patient. Patient understands and verbalizes understanding of the scribes services and all questions answered regarding scribes services. Patient agrees to use of scribes services. 04/17/2024 Essential (primary) hypertension (ICD-10 - I10) Mrs. Paul is a 53-year-old lady with a history of hypertension, perimenopausal symptoms on Wellbutrin and obesity status post bariatric surgery here for follow up on blood pressure. Plan is as follows: Hypertension. Start HCTZ 25 MG daily and continue amlodipine 2.5 MG and Lisinopril 40 MG daily. Hyperlipidemia. Start Rosuvastatin 5 MG once a day. Suggested dietary modifications. Recheck lipid panel. Bariatric surgery status. S/p gastric sleeve in 2016 and lost 50-60 lbs. Dietary recommendations. Patient advised to be on low calorie, low carbohydrate diet. Restrict calories to less than 1500 kcal in 24 hours. Low glycemic index foods and encouraged. She may benefit from meal replacements and she is given dietary education materials. Advised to use calorie counter and adhere to portion control. Monthly goal is to lose 4-6 pounds. She is currently on Wellbutrin which may be combined with Naltrexone for weight loss. Patient encouraged to increase frequency, intensity and duration of exercise. Encouraged to burn at least 250-500 kcal in one session. Also encouraged to do weight training Assess. Different risk factors discussed with the patient and addressed Advise. GERD/small hiatal hernia on recent CT abdomen and pelvis. Continue Pantoprazole 20 MG once a day. Generalized anxiety disorder. continue Wellbutrin XL 300 mg daily and Start hydroxyzine 25 MG once a day. Screening blood work before next appointment. Scribe services used to formulate this note under HIPAA compliance and under [place] law mandated for scribe services. Patient aware of service. Verbal consent and written consent taken from the patient. Patient understands and verbalizes understanding of the scribes services and all questions answered regarding scribes services. Patient agrees to use of scribes services. 05/29/2024 Essential (primary) hypertension (ICD-10 - I10) Mrs. Paul is a 53-year-old lady with a history of hypertension, perimenopausal symptoms on Wellbutrin and obesity status post bariatric surgery here for follow up on blood pressure. Plan is as follows: Hypertension. Her diastolic blood pressure is still running high. She is off amlodipine at this point because she gets rashes on her face. Continue HCTZ 25 MG daily and Lisinopril 40 MG daily. Hyperlipidemia. Continue Rosuvastatin 5 MG once a day. Suggested dietary modifications. Recheck lipid panel. Bariatric surgery status. S/p gastric sleeve in 2016 and lost 50-60 lbs. Start Zepbound 2.5 MG/0.5ML, weekly. Side effects explained with the patient. Dietary recommendations. Patient advised to be on low calorie, low carbohydrate diet. Restrict calories to less than 1500 kcal in 24 hours. Low glycemic index foods and encouraged. She may benefit from meal replacements and she is given dietary education materials. Advised to use calorie counter and adhere to portion control. Monthly goal is to lose 4-6 pounds. She is currently on Wellbutrin which may be combined with Naltrexone for weight loss. Patient encouraged to increase frequency, intensity and duration of exercise. Encouraged to burn at least 250-500 kcal in one session. Also encouraged to do weight training Assess. Different risk factors discussed with the patient and addressed Advise. GERD/small hiatal hernia on recent CT abdomen and pelvis. Continue Pantoprazole 20 MG once a day. Generalized anxiety disorder. continue Wellbutrin XL 300 mg daily and hydroxyzine 25 MG once a day. General health concerns discussed with patient. Scribe services used to formulate this note under HIPAA compliance and under [place] law mandated for scribe services. Patient aware of service. Verbal consent and written consent taken from the patient. Patient understands and verbalizes understanding of the scribes services and all questions answered regarding scribes services. Patient agrees to use of scribes services. 07/11/2024 Other obesity due to excess calories (ICD-10 - E66.09) Evelyn is 53 years old with hypertension, acid reflux, hyperlipidemia, generalized anxiety disorder, status post bariatric surgery is here for follow-up for weight management. Hypertension. Her blood pressure was running high today advised low calorie foods and cut back on the salt and increase aerobic activities and monitor blood pressure at home and if it is still running high we will review medications Dietary recommendations. Food recall was done today and patient advised to be on low calorie, low carbohydrate diet. Restrict calories to less than 1500 kcal in 24 hours. Low glycemic index foods and encouraged. Meal replacements were recommended. Advised to use [id number] multivitamins and vitamin D. Advised to use calorie counter and adhere to portion control. Monthly goal is to lose 4-6 pounds Pharmacotherapy. Her insurance declined Zepbound but covers Wegovy. We will send prescription for low-dose wegovy 0.25 mg every weekly. Side effects explained to the patient. Goal is to lose 3-5% of body weight in 3 months. Exercise. Patient encouraged to increase frequency, intensity and duration of exercise. Encouraged to burn at least 250-500 kcal in one session. Also encouraged to do weight training Assess. Different risk factors discussed with the patient and addressed Advise. Patient was given clear And specific advise that she will comply with Low-calorie diet and try not to exceed more than 1300 kcal in 24 hours. Agree. Mutually agreed to work together to achieve appropriate goals Assist. Motivational interviewing done. Arrange. Follow-up appointment arranged. Counseling. 20 minutes spent Face to face with the patient more than 50% of time was spent counseling 07/11/2024 Dietary counseling and surveillance (ICD-10 - Z71.3) Evelyn is 53 years old with hypertension, acid reflux, hyperlipidemia, generalized anxiety disorder, status post bariatric surgery is here for follow-up for weight management. Hypertension. Her blood pressure was running high today advised low calorie foods and cut back on the salt and increase aerobic activities and monitor blood pressure at home and if it is still running high we will review medications Dietary recommendations. Food recall was done today and patient advised to be on low calorie, low carbohydrate diet. Restrict calories to less than 1500 kcal in 24 hours. Low glycemic index foods and encouraged. Meal replacements were recommended. Advised to use slce-svd-[id number] multivitamins and vitamin D. Advised to use calorie counter and adhere to portion control. Monthly goal is to lose 4-6 pounds Pharmacotherapy. Her insurance declined Zepbound but covers Wegovy. We will send prescription for low-dose wegovy 0.25 mg every weekly. Side effects explained to the patient. Goal is to lose 3-5% of body weight in 3 months. Exercise. Patient encouraged to increase frequency, intensity and duration of exercise. Encouraged to burn at least 250-500 kcal in one session. Also encouraged to do weight training Assess. Different risk factors discussed with the patient and addressed Advise. Patient was given clear And specific advise that she will comply with Low-calorie diet and try not to exceed more than 1300 kcal in 24 hours. Agree. Mutually agreed to work together to achieve appropriate goals Assist. Motivational interviewing done. Arrange. Follow-up appointment arranged. Counseling. 20 minutes spent Face to face with the patient more than 50% of time was spent counseling 08/12/2024 Other obesity due to excess calories (ICD-10 - E66.09) Evelyn is 53 years old with hypertension, acid reflux, hyperlipidemia, generalized anxiety disorder, status post bariatric surgery is here for follow-up for weight management. We saw her in June. She gained a pound since last visit. Plan is as follows: Hypertension. Her blood pressure was running high today advised low calorie foods and cut back on the salt and increase aerobic activities and monitor blood pressure at home.Her blood pressure reading on her home blood pressure machine was 139/90. Her goal blood pressure is 130/80. Continue current regimen Hyperlipidemia. Total cholesterol 245. LDL 160 which were high. Switch Rosuvastatin 5 MG to Pravastatin 20 MG. Suggested dietary modifications. Recheck lipid panel. Dietary recommendations. Food recall was done today and patient advised to be on low calorie, low carbohydrate diet. Restrict calories to less than 1500 kcal in 24 hours. Low glycemic index foods and encouraged. Meal replacements were recommended. Advised to use [id number] multivitamins and vitamin D. Advised to use calorie counter and adhere to portion control. Monthly goal is to lose 4-6 pounds Pharmacotherapy. She is not taking Wegovy at this point. Start Naltrexone 50 MG and continue Wellbutrin 300 MG once a day. Side effects explained to the patient. Goal is to lose 3-5% of body weight in 3 months. Exercise. Patient encouraged to increase frequency, intensity and duration of exercise. Encouraged to burn at least 250-500 kcal in one session. Also encouraged to do weight training Assess. Different risk factors discussed with the patient and addressed Advise. Patient was given clear And specific advise that she will comply with Low-calorie diet and try not to exceed more than 1300 kcal in 24 hours. Agree. Mutually agreed to work together to achieve appropriate goals Assist. Motivational interviewing done. Arrange. Follow-up appointment arranged. Counseling. 20 minutes spent Face to face with the patient more than 50% of time was spent counseling General health concerns discussed with patient. Scribe services used to formulate this note under HIPAA compliance and under [place] law mandated for scribe services. Patient aware of service. Verbal consent and written consent taken from the patient. Patient understands and verbalizes understanding of the scribes services and all questions answered regarding scribes services. Patient agrees to use of scribes services. 08/12/2024 Dietary counseling and surveillance (ICD-10 - Z71.3) Evelyn is 53 years old with hypertension, acid reflux, hyperlipidemia, generalized anxiety disorder, status post bariatric surgery is here for follow-up for weight management. We saw her in June. She gained a pound since last visit. Plan is as follows: Hypertension. Her blood pressure was running high today advised low calorie foods and cut back on the salt and increase aerobic activities and monitor blood pressure at home.Her blood pressure reading on her home blood pressure machine was 139/90. Her goal blood pressure is 130/80. Continue current regimen Hyperlipidemia. Total cholesterol 245. LDL 160 which were high. Switch Rosuvastatin 5 MG to Pravastatin 20 MG. Suggested dietary modifications. Recheck lipid panel. Dietary recommendations. Food recall was done today and patient advised to be on low calorie, low carbohydrate diet. Restrict calories to less than 1500 kcal in 24 hours. Low glycemic index foods and encouraged. Meal replacements were recommended. Advised to use wact-orb-aatlszs multivitamins and vitamin D. Advised to use calorie counter and adhere to portion control. Monthly goal is to lose 4-6 pounds Pharmacotherapy. She is not taking Wegovy at this point. Start Naltrexone 50 MG and continue Wellbutrin 300 MG once a day. Side effects explained to the patient. Goal is to lose 3-5% of body weight in 3 months. Exercise. Patient encouraged to increase frequency, intensity and duration of exercise. Encouraged to burn at least 250-500 kcal in one session. Also encouraged to do weight training Assess. Different risk factors discussed with the patient and addressed Advise. Patient was given clear And specific advise that she will comply with Low-calorie diet and try not to exceed more than 1300 kcal in 24 hours. Agree. Mutually agreed to work together to achieve appropriate goals Assist. Motivational interviewing done. Arrange. Follow-up appointment arranged. Counseling. 20 minutes spent Face to face with the patient more than 50% of time was spent counseling General health concerns discussed with patient. Scribe services used to formulate this note under HIPAA compliance and under [place] law mandated for scribe services. Patient aware of service. Verbal consent and written consent taken from the patient. Patient understands and verbalizes understanding of the scribes services and all questions answered regarding scribes services. Patient agrees to use of scribes services. 08/12/2024 Essential (primary) hypertension (ICD-10 - I10) Evelyn is 53 years old with hypertension, acid reflux, hyperlipidemia, generalized anxiety disorder, status post bariatric surgery is here for follow-up for weight management. We saw her in June. She gained a pound since last visit. Plan is as follows: Hypertension. Her blood pressure was running high today advised low calorie foods and cut back on the salt and increase aerobic activities and monitor blood pressure at home.Her blood pressure reading on her home blood pressure machine was 139/90. Her goal blood pressure is 130/80. Continue current regimen Hyperlipidemia. Total cholesterol 245. LDL 160 which were high. Switch Rosuvastatin 5 MG to Pravastatin 20 MG. Suggested dietary modifications. Recheck lipid panel. Dietary recommendations. Food recall was done today and patient advised to be on low calorie, low carbohydrate diet. Restrict calories to less than 1500 kcal in 24 hours. Low glycemic index foods and encouraged. Meal replacements were recommended. Advised to use hrdo-fyj-wfddnar multivitamins and vitamin D. Advised to use calorie counter and adhere to portion control. Monthly goal is to lose 4-6 pounds Pharmacotherapy. She is not taking Wegovy at this point. Start Naltrexone 50 MG and continue Wellbutrin 300 MG once a day. Side effects explained to the patient. Goal is to lose 3-5% of body weight in 3 months. Exercise. Patient encouraged to increase frequency, intensity and duration of exercise. Encouraged to burn at least 250-500 kcal in one session. Also encouraged to do weight training Assess. Different risk factors discussed with the patient and addressed Advise. Patient was given clear And specific advise that she will comply with Low-calorie diet and try not to exceed more than 1300 kcal in 24 hours. Agree. Mutually agreed to work together to achieve appropriate goals Assist. Motivational interviewing done. Arrange. Follow-up appointment arranged. Counseling. 20 minutes spent Face to face with the patient more than 50% of time was spent counseling General health concerns discussed with patient. Scribe services used to formulate this note under HIPAA compliance and under [place] law mandated for scribe services. Patient aware of service. Verbal consent and written consent taken from the patient. Patient understands and verbalizes understanding of the scribes services and all questions answered regarding scribes services. Patient agrees to use of scribes services. 07/11/2024 Essential (primary) hypertension (ICD-10 - I10) Evelyn is 53 years old with hypertension, acid reflux, hyperlipidemia, generalized anxiety disorder, status post bariatric surgery is here for follow-up for weight management. Hypertension. Her blood pressure was running high today advised low calorie foods and cut back on the salt and increase aerobic activities and monitor blood pressure at home and if it is still running high we will review medications Dietary recommendations. Food recall was done today and patient advised to be on low calorie, low carbohydrate diet. Restrict calories to less than 1500 kcal in 24 hours. Low glycemic index foods and encouraged. Meal replacements were recommended. Advised to use capl-umc-fpcuolh multivitamins and vitamin D. Advised to use calorie counter and adhere to portion control. Monthly goal is to lose 4-6 pounds Pharmacotherapy. Her insurance declined Zepbound but covers Wegovy. We will send prescription for low-dose wegovy 0.25 mg every weekly. Side effects explained to the patient. Goal is to lose 3-5% of body weight in 3 months. Exercise. Patient encouraged to increase frequency, intensity and duration of exercise. Encouraged to burn at least 250-500 kcal in one session. Also encouraged to do weight training Assess. Different risk factors discussed with the patient and addressed Advise. Patient was given clear And specific advise that she will comply with Low-calorie diet and try not to exceed more than 1300 kcal in 24 hours. Agree. Mutually agreed to work together to achieve appropriate goals Assist. Motivational interviewing done. Arrange. Follow-up appointment arranged. Counseling. 20 minutes spent Face to face with the patient more than 50% of time was spent counseling 04/17/2024 Gastro-esophageal reflux disease without esophagitis (ICD-10 - K21.9) Mrs. Paul is a 53-year-old lady with a history of hypertension, perimenopausal symptoms on Wellbutrin and obesity status post bariatric surgery here for follow up on blood pressure. Plan is as follows: Hypertension. Start HCTZ 25 MG daily and continue amlodipine 2.5 MG and Lisinopril 40 MG daily. Hyperlipidemia. Start Rosuvastatin 5 MG once a day. Suggested dietary modifications. Recheck lipid panel. Bariatric surgery status. S/p gastric sleeve in 2016 and lost 50-60 lbs. Dietary recommendations. Patient advised to be on low calorie, low carbohydrate diet. Restrict calories to less than 1500 kcal in 24 hours. Low glycemic index foods and encouraged. She may benefit from meal replacements and she is given dietary education materials. Advised to use calorie counter and adhere to portion control. Monthly goal is to lose 4-6 pounds. She is currently on Wellbutrin which may be combined with Naltrexone for weight loss. Patient encouraged to increase frequency, intensity and duration of exercise. Encouraged to burn at least 250-500 kcal in one session. Also encouraged to do weight training Assess. Different risk factors discussed with the patient and addressed Advise. GERD/small hiatal hernia on recent CT abdomen and pelvis. Continue Pantoprazole 20 MG once a day. Generalized anxiety disorder. continue Wellbutrin XL 300 mg daily and Start hydroxyzine 25 MG once a day. Screening blood work before next appointment. Scribe services used to formulate this note under HIPAA compliance and under [place] law mandated for scribe services. Patient aware of service. Verbal consent and written consent taken from the patient. Patient understands and verbalizes understanding of the scribes services and all questions answered regarding scribes services. Patient agrees to use of scribes services. 05/29/2024 Other obesity due to excess calories (ICD-10 - E66.09) Mrs. Paul is a 53-year-old lady with a history of hypertension, perimenopausal symptoms on Wellbutrin and obesity status post bariatric surgery here for follow up on blood pressure. Plan is as follows: Hypertension. Her diastolic blood pressure is still running high. She is off amlodipine at this point because she gets rashes on her face. Continue HCTZ 25 MG daily and Lisinopril 40 MG daily. Hyperlipidemia. Continue Rosuvastatin 5 MG once a day. Suggested dietary modifications. Recheck lipid panel. Bariatric surgery status. S/p gastric sleeve in 2016 and lost 50-60 lbs. Start Zepbound 2.5 MG/0.5ML, weekly. Side effects explained with the patient. Dietary recommendations. Patient advised to be on low calorie, low carbohydrate diet. Restrict calories to less than 1500 kcal in 24 hours. Low glycemic index foods and encouraged. She may benefit from meal replacements and she is given dietary education materials. Advised to use calorie counter and adhere to portion control. Monthly goal is to lose 4-6 pounds. She is currently on Wellbutrin which may be combined with Naltrexone for weight loss. Patient encouraged to increase frequency, intensity and duration of exercise. Encouraged to burn at least 250-500 kcal in one session. Also encouraged to do weight training Assess. Different risk factors discussed with the patient and addressed Advise. GERD/small hiatal hernia on recent CT abdomen and pelvis. Continue Pantoprazole 20 MG once a day. Generalized anxiety disorder. continue Wellbutrin XL 300 mg daily and hydroxyzine 25 MG once a day. General health concerns discussed with patient. Scribe services used to formulate this note under HIPAA compliance and under [place] law mandated for scribe services. Patient aware of service. Verbal consent and written consent taken from the patient. Patient understands and verbalizes understanding of the scribes services and all questions answered regarding scribes services. Patient agrees to use of scribes services. 05/29/2024 Mixed hyperlipidemia (ICD-10 - E78.2) Mrs. Paul is a 53-year-old lady with a history of hypertension, perimenopausal symptoms on Wellbutrin and obesity status post bariatric surgery here for follow up on blood pressure. Plan is as follows: Hypertension. Her diastolic blood pressure is still running high. She is off amlodipine at this point because she gets rashes on her face. Continue HCTZ 25 MG daily and Lisinopril 40 MG daily. Hyperlipidemia. Continue Rosuvastatin 5 MG once a day. Suggested dietary modifications. Recheck lipid panel. Bariatric surgery status. S/p gastric sleeve in 2016 and lost 50-60 lbs. Start Zepbound 2.5 MG/0.5ML, weekly. Side effects explained with the patient. Dietary recommendations. Patient advised to be on low calorie, low carbohydrate diet. Restrict calories to less than 1500 kcal in 24 hours. Low glycemic index foods and encouraged. She may benefit from meal replacements and she is given dietary education materials. Advised to use calorie counter and adhere to portion control. Monthly goal is to lose 4-6 pounds. She is currently on Wellbutrin which may be combined with Naltrexone for weight loss. Patient encouraged to increase frequency, intensity and duration of exercise. Encouraged to burn at least 250-500 kcal in one session. Also encouraged to do weight training Assess. Different risk factors discussed with the patient and addressed Advise. GERD/small hiatal hernia on recent CT abdomen and pelvis. Continue Pantoprazole 20 MG once a day. Generalized anxiety disorder. continue Wellbutrin XL 300 mg daily and hydroxyzine 25 MG once a day. General health concerns discussed with patient. Scribe services used to formulate this note under HIPAA compliance and under [place] law mandated for scribe services. Patient aware of service. Verbal consent and written consent taken from the patient. Patient understands and verbalizes understanding of the scribes services and all questions answered regarding scribes services. Patient agrees to use of scribes services. 03/13/2024 Bariatric surgery status (ICD-10 - Z98.84) Mrs. Paul is a 53-year-old lady with a history of hypertension, perimenopausal symptoms on Wellbutrin and obesity status post bariatric surgery here for follow up on blood pressure. Plan is as follows: Hypertension. Blood pressure well controlled on amlodipine 2.5 MG and Lisinopril 40 MG daily. Bariatric surgery status. S/p gastric sleeve in 2016 and lost 50-60 lbs. Dietary recommendations. Patient advised to be on low calorie, low carbohydrate diet. Restrict calories to less than 1500 kcal in 24 hours. Low glycemic index foods and encouraged. She may benefit from meal replacements and she is given dietary education materials. Advised to use calorie counter and adhere to portion control. Monthly goal is to lose 4-6 pounds Pharmacotherapy. Options and side effects discussed. She was on Phentermine in the past. She is currently on Wellbutrin which may be combined with Naltrexone for weight loss. Patient encouraged to increase frequency, intensity and duration of exercise. Encouraged to burn at least 250-500 kcal in one session. Also encouraged to do weight training Assess. Different risk factors discussed with the patient and addressed Advise. GERD/small hiatal hernia on recent CT abdomen and pelvis. Start Pantoprazole 20 MG once a day. Referred to GI. Shortness of breath. Ordered echocardiogram. Generalized anxiety disorder. Started on Wellbutrin XL 150 mg daily General health concerns discussed with patient. Scribe services used to formulate this note under HIPAA compliance and under [place] law mandated for scribe services. Patient aware of service. Verbal consent and written consent taken from the patient. Patient understands and verbalizes understanding of the scribes services and all questions answered regarding scribes services. Patient agrees to use of scribes services. 03/13/2024 Dietary counseling and surveillance (ICD-10 - Z71.3) Mrs. Paul is a 53-year-old lady with a history of hypertension, perimenopausal symptoms on Wellbutrin and obesity status post bariatric surgery here for follow up on blood pressure. Plan is as follows: Hypertension. Blood pressure well controlled on amlodipine 2.5 MG and Lisinopril 40 MG daily. Bariatric surgery status. S/p gastric sleeve in 2016 and lost 50-60 lbs. Dietary recommendations. Patient advised to be on low calorie, low carbohydrate diet. Restrict calories to less than 1500 kcal in 24 hours. Low glycemic index foods and encouraged. She may benefit from meal replacements and she is given dietary education materials. Advised to use calorie counter and adhere to portion control. Monthly goal is to lose 4-6 pounds Pharmacotherapy. Options and side effects discussed. She was on Phentermine in the past. She is currently on Wellbutrin which may be combined with Naltrexone for weight loss. Patient encouraged to increase frequency, intensity and duration of exercise. Encouraged to burn at least 250-500 kcal in one session. Also encouraged to do weight training Assess. Different risk factors discussed with the patient and addressed Advise. GERD/small hiatal hernia on recent CT abdomen and pelvis. Start Pantoprazole 20 MG once a day. Referred to GI. Shortness of breath. Ordered echocardiogram. Generalized anxiety disorder. Started on Wellbutrin XL 150 mg daily General health concerns discussed with patient. Scribe services used to formulate this note under HIPAA compliance and under [place] law mandated for scribe services. Patient aware of service. Verbal consent and written consent taken from the patient. Patient understands and verbalizes understanding of the scribes services and all questions answered regarding scribes services. Patient agrees to use of scribes services. 05/29/2024 Dietary counseling and surveillance (ICD-10 - Z71.3) Mrs. Paul is a 53-year-old lady with a history of hypertension, perimenopausal symptoms on Wellbutrin and obesity status post bariatric surgery here for follow up on blood pressure. Plan is as follows: Hypertension. Her diastolic blood pressure is still running high. She is off amlodipine at this point because she gets rashes on her face. Continue HCTZ 25 MG daily and Lisinopril 40 MG daily. Hyperlipidemia. Continue Rosuvastatin 5 MG once a day. Suggested dietary modifications. Recheck lipid panel. Bariatric surgery status. S/p gastric sleeve in 2016 and lost 50-60 lbs. Start Zepbound 2.5 MG/0.5ML, weekly. Side effects explained with the patient. Dietary recommendations. Patient advised to be on low calorie, low carbohydrate diet. Restrict calories to less than 1500 kcal in 24 hours. Low glycemic index foods and encouraged. She may benefit from meal replacements and she is given dietary education materials. Advised to use calorie counter and adhere to portion control. Monthly goal is to lose 4-6 pounds. She is currently on Wellbutrin which may be combined with Naltrexone for weight loss. Patient encouraged to increase frequency, intensity and duration of exercise. Encouraged to burn at least 250-500 kcal in one session. Also encouraged to do weight training Assess. Different risk factors discussed with the patient and addressed Advise. GERD/small hiatal hernia on recent CT abdomen and pelvis. Continue Pantoprazole 20 MG once a day. Generalized anxiety disorder. continue Wellbutrin XL 300 mg daily and hydroxyzine 25 MG once a day. General health concerns discussed with patient. Scribe services used to formulate this note under HIPAA compliance and under [place] law mandated for scribe services. Patient aware of service. Verbal consent and written consent taken from the patient. Patient understands and verbalizes understanding of the scribes services and all questions answered regarding scribes services. Patient agrees to use of scribes services. 04/17/2024 Generalized anxiety disorder (ICD-10 - F41.1) Mrs. Paul is a 53-year-old lady with a history of hypertension, perimenopausal symptoms on Wellbutrin and obesity status post bariatric surgery here for follow up on blood pressure. Plan is as follows: Hypertension. Start HCTZ 25 MG daily and continue amlodipine 2.5 MG and Lisinopril 40 MG daily. Hyperlipidemia. Start Rosuvastatin 5 MG once a day. Suggested dietary modifications. Recheck lipid panel. Bariatric surgery status. S/p gastric sleeve in 2016 and lost 50-60 lbs. Dietary recommendations. Patient advised to be on low calorie, low carbohydrate diet. Restrict calories to less than 1500 kcal in 24 hours. Low glycemic index foods and encouraged. She may benefit from meal replacements and she is given dietary education materials. Advised to use calorie counter and adhere to portion control. Monthly goal is to lose 4-6 pounds. She is currently on Wellbutrin which may be combined with Naltrexone for weight loss. Patient encouraged to increase frequency, intensity and duration of exercise. Encouraged to burn at least 250-500 kcal in one session. Also encouraged to do weight training Assess. Different risk factors discussed with the patient and addressed Advise. GERD/small hiatal hernia on recent CT abdomen and pelvis. Continue Pantoprazole 20 MG once a day. Generalized anxiety disorder. continue Wellbutrin XL 300 mg daily and Start hydroxyzine 25 MG once a day. Screening blood work before next appointment. Scribe services used to formulate this note under HIPAA compliance and under [place] law mandated for scribe services. Patient aware of service. Verbal consent and written consent taken from the patient. Patient understands and verbalizes understanding of the scribes services and all questions answered regarding scribes services. Patient agrees to use of scribes services. 04/17/2024 Mixed hyperlipidemia (ICD-10 - E78.2) Mrs. Paul is a 53-year-old lady with a history of hypertension, perimenopausal symptoms on Wellbutrin and obesity status post bariatric surgery here for follow up on blood pressure. Plan is as follows: Hypertension. Start HCTZ 25 MG daily and continue amlodipine 2.5 MG and Lisinopril 40 MG daily. Hyperlipidemia. Start Rosuvastatin 5 MG once a day. Suggested dietary modifications. Recheck lipid panel. Bariatric surgery status. S/p gastric sleeve in 2016 and lost 50-60 lbs. Dietary recommendations. Patient advised to be on low calorie, low carbohydrate diet. Restrict calories to less than 1500 kcal in 24 hours. Low glycemic index foods and encouraged. She may benefit from meal replacements and she is given dietary education materials. Advised to use calorie counter and adhere to portion control. Monthly goal is to lose 4-6 pounds. She is currently on Wellbutrin which may be combined with Naltrexone for weight loss. Patient encouraged to increase frequency, intensity and duration of exercise. Encouraged to burn at least 250-500 kcal in one session. Also encouraged to do weight training Assess. Different risk factors discussed with the patient and addressed Advise. GERD/small hiatal hernia on recent CT abdomen and pelvis. Continue Pantoprazole 20 MG once a day. Generalized anxiety disorder. continue Wellbutrin XL 300 mg daily and Start hydroxyzine 25 MG once a day. Screening blood work before next appointment. Scribe services used to formulate this note under HIPAA compliance and under [place] law mandated for scribe services. Patient aware of service. Verbal consent and written consent taken from the patient. Patient understands and verbalizes understanding of the scribes services and all questions answered regarding scribes services. Patient agrees to use of scribes services. 03/13/2024 Gastro-esophageal reflux disease without esophagitis (ICD-10 - K21.9) Mrs. Paul is a 53-year-old lady with a history of hypertension, perimenopausal symptoms on Wellbutrin and obesity status post bariatric surgery here for follow up on blood pressure. Plan is as follows: Hypertension. Blood pressure well controlled on amlodipine 2.5 MG and Lisinopril 40 MG daily. Bariatric surgery status. S/p gastric sleeve in 2016 and lost 50-60 lbs. Dietary recommendations. Patient advised to be on low calorie, low carbohydrate diet. Restrict calories to less than 1500 kcal in 24 hours. Low glycemic index foods and encouraged. She may benefit from meal replacements and she is given dietary education materials. Advised to use calorie counter and adhere to portion control. Monthly goal is to lose 4-6 pounds Pharmacotherapy. Options and side effects discussed. She was on Phentermine in the past. She is currently on Wellbutrin which may be combined with Naltrexone for weight loss. Patient encouraged to increase frequency, intensity and duration of exercise. Encouraged to burn at least 250-500 kcal in one session. Also encouraged to do weight training Assess. Different risk factors discussed with the patient and addressed Advise. GERD/small hiatal hernia on recent CT abdomen and pelvis. Start Pantoprazole 20 MG once a day. Referred to GI. Shortness of breath. Ordered echocardiogram. Generalized anxiety disorder. Started on Wellbutrin XL 150 mg daily General health concerns discussed with patient. Scribe services used to formulate this note under HIPAA compliance and under [place] law mandated for scribe services. Patient aware of service. Verbal consent and written consent taken from the patient. Patient understands and verbalizes understanding of the scribes services and all questions answered regarding scribes services. Patient agrees to use of scribes services. 08/12/2024 Mixed hyperlipidemia (ICD-10 - E78.2) Evelyn is 53 years old with hypertension, acid reflux, hyperlipidemia, generalized anxiety disorder, status post bariatric surgery is here for follow-up for weight management. We saw her in June. She gained a pound since last visit. Plan is as follows: Hypertension. Her blood pressure was running high today advised low calorie foods and cut back on the salt and increase aerobic activities and monitor blood pressure at home.Her blood pressure reading on her home blood pressure machine was 139/90. Her goal blood pressure is 130/80. Continue current regimen Hyperlipidemia. Total cholesterol 245. LDL 160 which were high. Switch Rosuvastatin 5 MG to Pravastatin 20 MG. Suggested dietary modifications. Recheck lipid panel. Dietary recommendations. Food recall was done today and patient advised to be on low calorie, low carbohydrate diet. Restrict calories to less than 1500 kcal in 24 hours. Low glycemic index foods and encouraged. Meal replacements were recommended. Advised to use [id number] multivitamins and vitamin D. Advised to use calorie counter and adhere to portion control. Monthly goal is to lose 4-6 pounds Pharmacotherapy. She is not taking Wegovy at this point. Start Naltrexone 50 MG and continue Wellbutrin 300 MG once a day. Side effects explained to the patient. Goal is to lose 3-5% of body weight in 3 months. Exercise. Patient encouraged to increase frequency, intensity and duration of exercise. Encouraged to burn at least 250-500 kcal in one session. Also encouraged to do weight training Assess. Different risk factors discussed with the patient and addressed Advise. Patient was given clear And specific advise that she will comply with Low-calorie diet and try not to exceed more than 1300 kcal in 24 hours. Agree. Mutually agreed to work together to achieve appropriate goals Assist. Motivational interviewing done. Arrange. Follow-up appointment arranged. Counseling. 20 minutes spent Face to face with the patient more than 50% of time was spent counseling General health concerns discussed with patient. Scribe services used to formulate this note under HIPAA compliance and under [place] law mandated for scribe services. Patient aware of service. Verbal consent and written consent taken from the patient. Patient understands and verbalizes understanding of the scribes services and all questions answered regarding scribes services. Patient agrees to use of scribes services. 03/13/2024 Shortness of breath (ICD-10 - R06.02) Mrs. Paul is a 53-year-old lady with a history of hypertension, perimenopausal symptoms on Wellbutrin and obesity status post bariatric surgery here for follow up on blood pressure. Plan is as follows: Hypertension. Blood pressure well controlled on amlodipine 2.5 MG and Lisinopril 40 MG daily. Bariatric surgery status. S/p gastric sleeve in 2016 and lost 50-60 lbs. Dietary recommendations. Patient advised to be on low calorie, low carbohydrate diet. Restrict calories to less than 1500 kcal in 24 hours. Low glycemic index foods and encouraged. She may benefit from meal replacements and she is given dietary education materials. Advised to use calorie counter and adhere to portion control. Monthly goal is to lose 4-6 pounds Pharmacotherapy. Options and side effects discussed. She was on Phentermine in the past. She is currently on Wellbutrin which may be combined with Naltrexone for weight loss. Patient encouraged to increase frequency, intensity and duration of exercise. Encouraged to burn at least 250-500 kcal in one session. Also encouraged to do weight training Assess. Different risk factors discussed with the patient and addressed Advise. GERD/small hiatal hernia on recent CT abdomen and pelvis. Start Pantoprazole 20 MG once a day. Referred to GI. Shortness of breath. Ordered echocardiogram. Generalized anxiety disorder. Started on Wellbutrin XL 150 mg daily General health concerns discussed with patient. Scribe services used to formulate this note under HIPAA compliance and under [place] law mandated for scribe services. Patient aware of service. Verbal consent and written consent taken from the patient. Patient understands and verbalizes understanding of the scribes services and all questions answered regarding scribes services. Patient agrees to use of scribes services. 03/13/2024 Generalized anxiety disorder (ICD-10 - F41.1) Mrs. Paul is a 53-year-old lady with a history of hypertension, perimenopausal symptoms on Wellbutrin and obesity status post bariatric surgery here for follow up on blood pressure. Plan is as follows: Hypertension. Blood pressure well controlled on amlodipine 2.5 MG and Lisinopril 40 MG daily. Bariatric surgery status. S/p gastric sleeve in 2016 and lost 50-60 lbs. Dietary recommendations. Patient advised to be on low calorie, low carbohydrate diet. Restrict calories to less than 1500 kcal in 24 hours. Low glycemic index foods and encouraged. She may benefit from meal replacements and she is given dietary education materials. Advised to use calorie counter and adhere to portion control. Monthly goal is to lose 4-6 pounds Pharmacotherapy. Options and side effects discussed. She was on Phentermine in the past. She is currently on Wellbutrin which may be combined with Naltrexone for weight loss. Patient encouraged to increase frequency, intensity and duration of exercise. Encouraged to burn at least 250-500 kcal in one session. Also encouraged to do weight training Assess. Different risk factors discussed with the patient and addressed Advise. GERD/small hiatal hernia on recent CT abdomen and pelvis. Start Pantoprazole 20 MG once a day. Referred to GI. Shortness of breath. Ordered echocardiogram. Generalized anxiety disorder. Started on Wellbutrin XL 150 mg daily General health concerns discussed with patient. Scribe services used to formulate this note under HIPAA compliance and under [place] law mandated for scribe services. Patient aware of service. Verbal consent and written consent taken from the patient. Patient understands and verbalizes understanding of the scribes services and all questions answered regarding scribes services. Patient agrees to use of scribes services. Plan Of Treatment Pending Test Test Name Order Date Echocardiogram 03/13/2024 QUANTIFERON TB GOLD PLUS 04/20/2022 Future Test Test Name Order Date Zinc, Urine-[id number] 03/13/2024 Lipid Panel-[id number] 05/29/2024 Lipid Panel-[id number] 08/12/2024 Next Appt Details Provider Name:ANRAUD BROWNE , 09/12/2024 08:30:00 AM, [address] [place] [address], [id number], Insurance Providers Payer Name Payer Address Payer Phone Subscriber Number Group Number Insured Name Patient Relationship to Insured Coverage Start Date Coverage End Date [facility] [address] [place] [address] [id number] EVELYN PAUL Self - patient is the insured [facility] [address] [place] [address] [id number] EVELYN PAUL Self - patient is the insured Medical (General) History Medical History History ICD Code Hypertension Perimenopausal symptoms on Wellbutrin Surgical History Surgery Date(Month/Year) 2004 gastric sleeve, Dr. Price, was 226 lbs a nd lost 50-60 lbs 2015 cholecystectomy, [facility]ae[facility]
--- OUTSIDE RECORDS SUMMARY | 2024-08-29 10:44 | XMS_ITS ---
Author Organization [facility] Address [address] [facility] [address] [place] [address] Care Team Providers Care Speech Communication Professor Name Role Phone ARNAUD BROWNE Primary Care Provider [phone] Allergies Allergen (clinical drug ingredient) Drug/Non Drug Allergy documented on EMR Reaction Allergy Type Onset Date Status amlodipine Amlodipine rash Drug Allergy Activ e REASON FOR VISIT WM f/up Medications Medication SIG (Take, Route, Frequency, Duration) Notes Start Date End Date Status amLODIPine Besylate 2.5 MG 1 tablet Oral ly Once a day for 30 days 05/18/2023 Not-Taking EpiPen 2-Alistair 0.3 MG/0.3ML as directed In jection as needed for 30 days 04/12/2022 Not-Taking Naltrexone HCl 50 MG 1 tablet Orally Onc e a day for 30 days 06/01/2023 Not-Taking Pravastatin Sodium 20 MG 1 tablet Orally Once a day for 30 days 08/12/2024 Active Naltrexone HCl 50 MG 1 tablet Orally Onc e a day for 30 days 08/12/2024 Active hydrOXYzine HCl 25 MG 1 tablet Orally da caesar for 30 days 04/17/2024 Active Wellbutrin XL 300 MG 1 tablet in the morning Orally Once a day for 90 days Active hydroCHLOROthiazide 25 MG 1 tablet in th e morning Orally Once a day for 30 days 04/17/2024 Active Lisinopril 40 MG TAKE 1 TABLET BY MOUTH EVERY DAY FOR 30 DAYS for 90 days Active Wegovy 0.25 MG/0.5ML 0.25 mL Subcutaneou s once a week for 30 days Active ZyrTEC Allergy Activ e Pantoprazole Sodium 20 MG 1 tablet Orall y Once a day for 30 days 03/13/2024 Active Multivitamin Active Vital Signs Temperature 97.7 degrees Fahrenheit 08/12/20 24 Oximetry 99 % 08/12/2024 Heart Rate 84 /min 08/12/2024 Blood pressure systolic 140 mm Hg 08/12/20 24 Blood pressure diastolic 75 mm Hg 024 Weight 199.4 lbs 08/12/2024 BMI 33.18 kg/m2 08/12/2024 Height 65 in 08/12/2024 Encounters Encounter Location Date Provider Diagnosis [facility] [address] [facility] [address] [place] [address] 08/12/2024 ARNAUD BROWNE Other obesity due to excess calories E66.09 ; Dietary counseling and surveillance Z71.3 ; Essential (primary) hypertension I10 and Mixed hyperlipidemia E78.2 Assessments Encounter Date Diagnosis (ICD Code) Assessment Notes Treatment Notes Treatment Clinical Notes Section Notes 08/12/2024 Other obesity due to excess calories (ICD-10 - E66.09) Lalito is 53 years old with hypertension, acid [...] Meal replacements were recommended. Advised to use bqsy-iag-srehzox multivitamins and vitamin D. Advised to use [...] this note under HIPAA compliance and under [place] law mandated for scribe services. Patient aware of service. Verbal consent and written consent taken from the patient. Patient understands and verbalizes understanding of the scribes services and all questions answered regarding scribes services. Patient agrees to use of scribes services. 08/12/2024 Dietary counseling and surveillance (ICD-10 - Z71.3) Lalito is 53 years old with hypertension, acid [...] Meal replacements were recommended. Advised to use ptoh-ftf-yfwvofr multivitamins and vitamin D. Advised to use [...] this note under HIPAA compliance and under [place] law mandated for scribe services. Patient aware of service. Verbal consent and written consent taken from the patient. Patient understands and verbalizes understanding of the scribes services and all questions answered regarding scribes services. Patient agrees to use of scribes services. 08/12/2024 Essential (primary) hypertension (ICD-10 - I10) Lalito is 53 years old with hypertension, acid [...] Meal replacements were recommended. Advised to use ehte-bpo-rxzxjyf multivitamins and vitamin D. Advised to use [...] this note under HIPAA compliance and under [place] law mandated for scribe services. Patient aware of service. Verbal consent and written consent taken from the patient. Patient understands and verbalizes understanding of the scribes services and all questions answered regarding scribes services. Patient agrees to use of scribes services. 08/12/2024 Mixed hyperlipidemia (ICD-10 - E78.2) Lalito is 53 years old with hypertension, acid [...] Meal replacements were recommended. Advised to use gnde-zlr-saneypb multivitamins and vitamin D. Advised to use [...] this note under HIPAA compliance and under [place] law mandated for scribe services. Patient aware of service. Verbal consent and written consent taken from the patient. Patient understands and verbalizes understanding of the scribes services and all questions answered regarding scribes services. Patient agrees to use of scribes services. Plan Of Treatment Medication Medication Name Sig Start Date Stop Date Notes Pravastatin Sodium 20 MG 1 tablet Orally Once a day for 30 days 08/12/2024 Naltrexone HCl 50 MG 1 tablet Orally Onc e a day for 30 days 08/12/2024 Wegovy 0.25 MG/0.5ML 0.25 mL Subcutaneou s once a week for 30 days Future Test Test Name Order Date Lipid Panel-[id number] 08/12/2024 Next Appt Details Follow Up: 4 Weeks, Reason: Provider Name:ARNAUD BROWNE , 09/12/2024 08:30:00 AM, [address] [place] [address], [phone], Progress Notes * LALITO BAHENA RDOB: 1 (53 yo F)Acc No.[id number]:08/12/2024 Patient:?LALITO BAHENA R Provider:?ARNAUD BROWNE MD :1970???Age:53 Y???Sex:Female D ate:08/12/2024 Address:[address] [place] [address], [id number] Subjective: * Chief Complaints: * ???WM f/up * HPI: ???F/U Obesity:?53 year old female presents with c/o Patient is here for f/u on weight management.?Patient has lost weight?We saw her in June. She gained a pound since last visit .?patient is on Meal replacement?trying low calorie diet.?Patient is exercising?admits.?frequency of exercise? .?patient on pharmacotherapy?Wellbutrin 300 MG.?tolerating medication? .?Sleep pattern? Good.? * ROS:?General/Constitutional:?Overall health?Good.?Change in appetite?denies.?Chills?denies.?Fever?denies.?Night sweats?denies.?Sleep disturbance?denies.?Weight gain?denies.?Weight loss?denies.?Neurologic:?Difficulty speaking?denies.?Dizziness?denies.?Gait abnormality?denies.?Headache?denies.?Loss of strength?denies.?Memory loss?denies.?Seizures?denies.?Tingling/Numbness?denies .?Ophthalmologic:?Blurred vision?denies.?Discharge?denies.?Dry eye?denies.?Red eye?denies.?ENT:?Change in Voice?Denies.?Cold Symptoms?Denies.?Cough?Denies.?Dizziness?Denies.?Nasal Congestion?Denies.?Otalgia?Denies.?Nosebleed?denies.?Snoring?denies.?Cardiovascular:?Diaphoresis?Denies.?Pedal Edema?Denies.?PND (Paroxsymal nocturnal dyspnea)?Denies.?Chest pain?denies.?Difficulty laying flat?denies.?Dyspnea on exertion?denies.?Heart murmur?denies.?Orthopnea?denies.?Respiratory:?Snoring?denies.?Asthma?denies.?Cough?denies.?Shortness of breath with exertion?denies.?Sputum production?denies.?Wheezing?denies.?Gastrointestinal:?Change in bowel habits?denies.?Constipation?denies.?Decreased appetite?denies.?Diarrhea?denies.?Heartburn?denies.?Nausea?denies.?Vomiting?aide es.?Musculoskeletal:?tingling/numbness?Denies.?myalgias?Denies.?Joint Swelling?Denies.?extremeties?normal.?Arthritis?denies.?Back problems?denies.?Carpal tunnel?denies.?Joint stiffness?denies.?Muscle aches?denies.?Endocrine:?Bowel Changes?Denies.?Breast Discharge?Denies.?poor libido?Denies.?Cold intolerance?denies.?Excessive sweating?denies.?Excessive thirst?denies.?Frequent urination?denies.?Thyroid problems?denies.?Skin:?Bruising?Denies.?Eczema?denies.?Hair changes?denies.?Rash?denies.?Skin lesion(s)?denies.?Psychiatric:?Anxiety?denies.?Depressed mood?denies.?Difficulty sleeping?denies.?Nervous breakdown?denies.?Substance abuse?denies.?Urology:?abnormal menstrual bleeding?denies.?blood in urine?denies.?burning on urination?denies.?difficulty urinating?denies.?discharge?denies.?dysuria?denies.? * Medical History:? * Medications:?TakingPravastat in Sodium 20 MG Tablet 1 tablet Orally Once a day Pantoprazole Sodium 20 MG Tablet Delayed Release 1 tablet Orally Once a day ZyrTEC Allergy Multivitamin Lisinopril 40 MG Tablet TAKE 1 TABLET BY MOUTH EVERY DAY FOR 30 DAYS hydroCHLOROthiazide 25 MG Tablet 1 tablet in the morning Orally Once a day hydrOXYzine HCl 25 MG Tablet 1 tablet Orally daily Wellbutrin XL 300 MG Tablet Extended Release 24 Hour 1 tablet in the morning Orally Once a day Taking Pravastatin Sodium 20 MG Tablet 1 tablet Orally Once a day Taking Pantoprazole Sodium 20 MG Tablet Delayed Release 1 tablet Orally Once a day Taking ZyrTEC Allergy Taking Multivitamin Taking Lisinopril 40 MG Tablet TAKE 1 TABLET BY MOUTH EVERY DAY FOR 30 DAYS Taking hydroCHLOROthiazide 25 MG Tablet 1 tablet in the morning Orally Once a day Taking hydrOXYzine HCl 25 MG Tablet 1 tablet Orally daily Taking Wellbutrin XL 300 MG Tablet Extended Release 24 Hour 1 tablet in the morning Orally Once a day Not-TakingWegovy 0.25 MG/0.5ML Solution Auto-injector 0.25 mL Subcutaneous once a week EpiPen 2-Alistair 0.3 MG/0.3ML Solution Auto-injector as directed Injection as needed amLODIPine Besylate 2.5 MG Tablet 1 tablet Orally Once a day Naltrexone HCl 50 MG Tablet 1 tablet Orally Once a day Not-Taking Wegovy 0.25 MG/0.5ML Solution Auto-injector 0.25 mL Subcutaneous once a week Not-Taking EpiPen 2-Alistair 0.3 MG/0.3ML Solution Auto-injector as directed Injection as needed Not-Taking amLODIPine Besylate 2.5 MG Tablet 1 tablet Orally Once a day Not-Taking Naltrexone HCl 50 MG Tablet 1 tablet Orally Once a day DiscontinuedRosuvastatin Calcium 5 MG Tablet 1 tablet Orally Once a day Medication List reviewed and reconciled with the patientDiscontinued Rosuvastatin Calcium 5 MG Tablet 1 tablet Orally Once a day Medication List reviewed and reconciled with the patient * Allergies:?Amlodipine: rash - Side Effectsno[Allergies Verified] Objective: * Vitals:?Temp:97.7F, Oxygen s at %:99%, HR:84/min, BP: 150/100 mm Hg,140/75mm Hg, Wt:199.4lbs, BMI:33.18Index, Ht: 65 in. * ???Past Orders: Lab:Lipid Panel-[id number] * Collection Date 05/28/2024 03/15/2024 Collection Time 09:42 AM 08:56 AM Order Date 04/17/2024 03/13/2024 Cholesterol, Total 245?H (Ref Range: 100-199 mg/dL) 224?H (Ref Range: 100-199 mg/dL) Triglycerides 95 (Ref Range: 0-149 mg/dL) 83 (Ref Range: 0-149 mg/dL) HDL Cholesterol 69 (Ref Range: >39 mg/dL) 64 (Ref Range: >39 mg/dL) VLDL Cholesterol Savage 16 (Ref Range: 5-40 mg/dL) 15 (Ref Range: 5-40 mg/dL) LDL Chol Calc ([facility]) 160?H (Ref Range: 0-99 mg/dL) 145?H (Ref Range: 0-99 mg/dL) ???Lab:Vitamin D, [id number] (Order Date - 03/13/2024) (Collection Date & Time - 408:56 AM)?ValueReference Range?Vitamin D, 25-Gxwdbgb24.230.0-100.0 - ng/mL ???Lab:Vitamin [id number] (Order Date - 03/13/2024) (Collection Date & Time - 03/15/2024 08:56 AM)?ValueReference Range?Vitamin [id number] - pg/mL ???Lab:Ferritin-[id number] (Order Date - 03/13/2024) (Collection Date & Time - 03/15/2024 08:56 AM)?ValueReference Range?Otxlnfuo5154-308 - ng/mL ???Lab:Comp. Metabolic Panel ([id number] (Order Date - 03/13/2024) (Collection Date & Time - 03/15/2024 08:56 AM)?ValueReference Range?Osknsoj83 70-99 - mg/dL?MAV680-54 - mg/dL?Creatinine0.980.57-1.00 - mg/dL ?BUN/Creatinine Xbarn266-10 -?Jvorxs218864-625 - mmol/L ?Potassium4.13.5-5.2 - mmol/L?Pamgfcfz71774-856 - mmol/L ?Carbon Dioxide, Gherd7225-91 - mmol/L?Calcium9.88.7-10.2 - mg/dL ?Protein, Total6.56.0-8.5 - g/dL?Albumin4.43.8-4.9 - g/dL ?Globulin, Total2.11.5-4.5 - g/dL?Bilirubin, Total0.60.0-1.2 - mg/dL?Alkaline Otuovwgixdn7455-944 - IU/L?AST (SGOT)160-40 - IU/L ?ALT (SGPT)200-32 - IU/L?eGFR69>59 - mL/min/1.73 * Examination: ???General Examination: ?Psychiatry?Normal.?GENERAL APPEARANCE:?well developed, well nourished, in no acute distress.?HEAD:?normocephalic, atraumatic.?EYES:?pupils equal, round, reactive to light and accommodation, sclera non-icteric.?EARS:?normal.?ORAL CAVITY:?mucosa moist.?THROAT:?clear.?OROPHARYNX?Normal.?SINUSES?Normal.?NECK/THYROID:?neck supple, full range of motion, no cervical lymphadenopathy.?SKIN:?warm and dry, no suspicious lesions.?HEART:?regular rate and rhythm, S1, S2 normal,??,?no murmurs.?LUNGS:?clear to auscultation bilaterally.?ABDOMEN:?soft, nontender, nondistended, bowel sounds present, normal.?EXTREMITIES:? .?PERIPHERAL PULSES:? .?NEUROLOGIC:?nonfocal, motor strength normal upper and lower extremities, sensory exam intact.?PODIATRIC:?NORMAL?,?BILATERALLY.? Assessment: * Assessment: 1.?Other obesity due to exce ss calories - E66.09 (Primary)???2.?Dietary counseling and surveillance - Z71.3???3.?Essential (primary) hypertension - I10???4.?Mixed hyperlipidemia - E78.2??? Lalito is 53 years old with hypertension, acid reflux, hyperlipidemia, generalized anxiety disorder, status post bariatric surgery is here for follow-up for weight management.?We saw her in June. She gained a pound since last visit. Plan is as follows: Hypertension. Her blood pressure was running high today advised low calorie foods and cut back on the salt and increase aerobic activities and monitor blood pressure at home.Her blood pressure reading on her home blood pressure machine was 139/90.? Her goal blood pressure is 130/80.? Continue current regimen Hyperlipidemia. Total cholesterol 245. [...] Meal replacements were recommended. Advised to use fbwu-rre-aqibfun multivitamins and vitamin D. Advised to use calorie counter and adhere to portion control. Monthly goal is to lose 4-6 pounds Pharmacotherapy. She is not taking Wegovy at this point. Start?Naltrexone 50 MG and continue Wellbutrin 300 MG once a day.?Side effects explained to the patient. Goal is [...] this note under HIPAA compliance and under [place] law mandated for scribe services. Patient aware of service. Verbal consent and written consent taken from the patient. Patient understands and verbalizes understanding of the scribes services and all questions answered regarding scribes services. Patient agrees to use of scribes services. Plan: * Treatment: 2.?Mixed hyperlipidemia?LAB: Lipid Panel-[id number] (Ordered for 08/12/2024) 3.?Others? Refill Pravastatin Sodium Tablet, 20 MG, 1 tablet, Orally, Once a day, 30 days, 30, Refills 3.?? * Procedure Codes:?3078F DIAST BP < 80 MM PS6338H SYST BP = 140 MM HG6 IE2774V DIAST BP = 90 MM HG * Follow Up:?4 Weeks * * Sign off status: Completed true * Provider:?ARNAUD BROWNE MD Date:?08/12 Generated for Winter horta/Carlton/Dejanitting on:?08/29/2024 10:43 AM EST History and Physical Notes * HPI (History of Present Illness) Category Sub-Category Detail Notes Category Not es F/U Obesity Patient is here for f/u on weight managem ent Patient has lost weight We saw her in [facility]. She gained a pound since last visit patient is on Meal replacement trying lo w calorie diet Patient is exercising admits frequency of exercise patient on pharmacotherapy Wellbutrin 30 0 MG tolerating medication Sleep pattern Good Examination Category Sub-Category Detail Notes Category Not es General Examination GENERAL APPEARANCE: well dev eloped, well nourished, in no acute distress HEAD: normocephalic, atrau matic EYES: pupils equal, round, reactive to light and accommodation, sclera non-icteric EARS: normal THROAT: clear NECK/THYROID: neck supple, full ra nge of motion, no cervical lymphadenopathy HEART: regular rate and rhy thm, S1, S2 normal, , no murmurs LUNGS: clear to auscultatio n bilaterally ABDOMEN: soft, nontender, non distended, bowel sounds present, normal NEUROLOGIC: nonfocal, motor stre ngth normal upper and lower extremities, sensory exam intact SKIN: warm and dry, no corie picious lesions EXTREMITIES: PERIPHERAL PULSES: ORAL CAVITY: mucosa moist PODIATRIC: NORMAL , BILATERALLY Psychiatry Normal OROPHARYNX Normal SINUSES Normal
--- OUTSIDE RECORDS SUMMARY | 2024-08-29 10:44 | XMS_ITS ---
Author Organization [facility] Address [address] [facility] [address] [place] [address] Care Team Providers Care Decorating Instructor Name Role Phone ARNAUD BROWNE Primary Care Provider Allergies Allergen (clinical drug ingredient) Drug/Non Drug Allergy documented on EMR Reaction Allergy Type Onset Date Status amlodipine Amlodipine rash Drug Allergy Activ e REASON FOR VISIT WM f/up, F/U obesity Medications Medication SIG (Take, Route, Frequency, Duration) Notes Start Date End Date Status Pantoprazole Sodium 20 MG 1 tablet Orall y Once a day for 30 days 03/13/2024 Active Multivitamin Active ZyrTEC Allergy Activ e hydroCHLOROthiazide 25 MG 1 tablet in th e morning Orally Once a day for 30 days 04/17/2024 Active Lisinopril 40 MG TAKE 1 TABLET BY MOUTH EVERY DAY FOR 30 DAYS for 90 days Active EpiPen 2-Alistair 0.3 MG/0.3ML as directed In jection as needed for 30 days 04/12/2022 Not-Taking Naltrexone HCl 50 MG 1 tablet Orally Onc e a day for 30 days 06/01/2023 Not-Taking Wegovy 0.25 MG/0.5ML 0.25 mL Subcutaneou s once a week for 30 days 07/11/2024 Active amLODIPine Besylate 2.5 MG 1 tablet Oral ly Once a day for 30 days 05/18/2023 Not-Taking Rosuvastatin Calcium 5 MG 1 tablet Orall y Once a day for 30 days 04/17/2024 Active Wellbutrin XL 300 MG 1 tablet in the morning Orally Once a day for 90 days Active hydrOXYzine HCl 25 MG 1 tablet Orally da caesar for 30 days 04/17/2024 Active Vital Signs Temperature 97.9 degrees Fahrenheit 07/11/20 Oximetry 99 % 07/11/2024 Heart Rate 93 /min 07/11/2024 Blood pressure systolic 130 mm Hg 07/11/20 Blood pressure diastolic 90 mm Hg 024 Weight 198 lbs 07/11/2024 BMI 32.95 kg/m2 07/11/2024 Height 65 in 07/11/2024 Encounters Encounter Location Date Provider Diagnosis [facility] [address] [facility] [address] [place] [address] 07/11/2024 ARNAUD BROWNE Other obesity due to excess calories E66.09 ; Dietary counseling and surveillance Z71.3 and Essential (primary) hypertension I10 Assessments Encounter Date Diagnosis (ICD Code) Assessment Notes Treatment Notes Treatment Clinical Notes Section Notes 07/11/2024 Other obesity due to excess calories [...] Meal replacements were recommended. Advised to use mmnh-ykf-kryuzjh multivitamins and vitamin D. Advised to use [...] Meal replacements were recommended. Advised to use ifum-lpq-thaoggf multivitamins and vitamin D. Advised to use [...] 50% of time was spent counseling 07/11/2024 Essential (primary) hypertension (ICD-10 - I10) Lalito [...] Meal replacements were recommended. Advised to use qpfe-jyc-lyfgztr multivitamins and vitamin D. Advised to use [...] than 50% of time was spent counseling Plan Of Treatment Medication Medication Name Sig Start Date Stop Date Notes Wegovy 0.25 MG/0.5ML 0.25 mL Subcutaneou s once a week for 30 days 07/11/2024 Next Appt Details Follow Up: 4 Weeks, Reason: Provider Name:ARNAUD BROWNE , 09/12/2024 08:30:00 AM, [address] [place] [address], [id number], Progress Notes * LALITO BAHENA RDOB: [birth year] (53 yo F)Acc No.[id number]:07/11/2024 Patient:?LALITO BAHENA R Provider:?ARNAUD BROWNE MD :1970???Age:53 Y???Sex:Female D ate:07/11/2024 Address:[address] [place] [address], [id number] Subjective: * Chief Complaints: * ???WM f/upF/U obesity * HPI: ???F/U Obesity:?53 year old female presents with c/o Patient is here for f/u on weight management.?Patient has lost weight?she gained 3 pounds since last visit.?patient is on Meal replacement?trying low calorie diet.?Patient is exercising?admits.?frequency of exercise? .?patient on pharmacotherapy?we tried for Zepbound which is not covered but her insurance covers Wegovy.?tolerating medication? .?Sleep pattern? Good.? * ROS:?General/Constitutional:?Overall health?Good.?Change [...] on urination?denies.?difficulty urinating?denies.?discharge?denies.?dysuria?denies.? * Medical History:? * Medications:?TakingPantopraz ole Sodium 20 MG Tablet Delayed Release 1 tablet Orally Once a day ZyrTEC Allergy Multivitamin Lisinopril 40 MG Tablet TAKE 1 TABLET BY MOUTH EVERY DAY FOR 30 DAYS hydroCHLOROthiazide 25 MG Tablet 1 tablet in the morning Orally Once a day Rosuvastatin Calcium 5 MG Tablet 1 tablet Orally Once a day hydrOXYzine HCl 25 MG Tablet 1 tablet Orally daily Wellbutrin XL 300 MG Tablet Extended Release 24 Hour 1 tablet in the morning Orally Once a day Taking Pantoprazole Sodium 20 MG Tablet Delayed Release 1 tablet Orally Once a day Taking ZyrTEC Allergy Taking Multivitamin Taking Lisinopril 40 MG Tablet TAKE 1 TABLET BY MOUTH EVERY DAY FOR 30 DAYS Taking hydroCHLOROthiazide 25 MG Tablet 1 tablet in the morning Orally Once a day Taking Rosuvastatin Calcium 5 MG Tablet 1 tablet Orally Once a day Taking hydrOXYzine HCl 25 MG Tablet 1 tablet Orally daily Taking Wellbutrin XL 300 MG Tablet Extended Release 24 Hour 1 tablet in the morning Orally Once a day Not- TakingEpiPen 2-Alistair 0.3 MG/0.3ML Solution Auto-injector as directed Injection as needed amLODIPine Besylate 2.5 MG Tablet 1 tablet Orally Once a day Naltrexone HCl 50 MG Tablet 1 tablet Orally Once a day Not-Taking EpiPen 2-Alistair 0.3 MG/0.3ML Solution Auto- injector as directed Injection as needed Not-Taking amLODIPine Besylate 2.5 MG Tablet 1 tablet Orally Once a day Not-Taking Naltrexone HCl 50 MG Tablet 1 tablet Orally Once a day DiscontinuedZepbound 2.5 MG/0.5ML Solution Auto-injector 0.5 mL Subcutaneous WEEKLY Medication List reviewed and reconciled with the patientDiscontinued Zepbound 2.5 MG/0.5ML Solution Auto-injector 0.5 mL Subcutaneous WEEKLY Medication List reviewed and reconciled with the patient * Allergies:?Amlodipine: rash - Side Effectsno[Allergies Verified] Objective: * Vitals:?Temp:97.9F, Oxygen s at %:99%, HR:93/min, BP:130/90mm Hg, Wt:198lbs, BMI:32.95Index, Ht: 65 in. * Examination: ???General Examination: ?Psychiatry?Normal.?GENERAL APPEARANCE:?well developed, [...] and surveillance - Z71.3???3.?Essential (primary) hypertension - I10?Lalito is 53? years old wit h hypertension, acid reflux, hyperlipidemia, generalized anxiety disorder, status post bariatric surgery is here for follow-up for weight management. Hypertension.? Her blood pressure was running high today [...] Meal replacements were recommended. Advised to use yhkg-xuu-shxnoui multivitamins and vitamin D. Advised to use calorie counter and adhere to portion control. Monthly goal is to lose 4-6 pounds Pharmacotherapy. Her insurance declined Zepbound but covers Wegovy.? We will send prescription for low-dose wegovy [...] than 50% of time was spent counseling Plan: * Treatment: * Procedure Codes:?3080F DIAST BP = 90 MM [id number] SYST BP GE 130 - 139MM HG * Follow Up:?4 Weeks * * Sign off status: Completed true * Provider:?ARNAUD BROWNE MD Date:?07/11 Generated for Winter horta/Carlton/eTransmitting on:?08/29/2024 10:43 AM EST History and Physical Notes * HPI (History of Present Illness) Category Sub-Category Detail Notes Category Not es F/U Obesity Patient is here for f/u on weight managem ent Patient has lost weight she gained 3 asya nds since last visit patient is on Meal replacement trying lo w calorie diet Patient is exercising admits frequency of exercise patient on pharmacotherapy we tried for Zepbound which is not covered but her insurance covers Wegovy tolerating medication Sleep pattern Good Examination Category [...]
--- OUTSIDE RECORDS SUMMARY | 2024-08-29 10:44 | XMS_ITS ---
Author Organization [facility] Address [address] [facility] [address] [place] [address] Care Team Providers Care Food Vendor Name Role Phone ARNAUD BROWNE Primary Care Provider [phone] REASON FOR VISIT Zepbound PA denied Encounters Encounter Location Date Provider Diagnosis [facility] [address] [facility] [address] [place] [address] 05/30/2024 ARNAUD BROWNE Plan Of Treatment Next Appt Details Provider Name:ARNAUD BROWNE , 09/12/2024 08:30:00 AM, [address] [facility] [address], [place], [address], Progress Notes * LALITO BAHENA RDOB: [birth year] (53 yo F)Acc No.[id number]:05/30/2024 Patient:?LALITO BAHENA :1970???Age:53 Y???Sex:Female Address:[address] [place] [address] * true * Date:? Generated for Printi ng/Mareg/eTransmitting on:?08/29/2024 10:44 AM EST
--- OUTSIDE RECORDS SUMMARY | 2024-08-29 10:44 | XMS_ITS ---
Author Name [facility]ISP Organization Unknown Results Test Name/Text Value Interpretation Date Range Source TROPONIN I HIGH SENSITIVE 5.4ng/L Normal [id number] 0 - 54 [facility] GFRE 63 Normal [id number] 60 - [facility] LIPASE 35U/L Normal [id number] 13 - 75 [facility] ALBUMIN 4.2g/dL Normal [id number] 3.4 - 5 [facility] SODIUM 141mmol/L Normal [id number] 136 - 145 [facility] GLUCOSE 105mg/dL Above high normal [id number] 74 - 100 [facility] BUN 19mg/dL Above high normal [id number] 7 - 18 [facility] BILIRUBIN,TOTAL 0.5mg/dL Normal [id number] 0.2 - 1 [facility] 109mmol/L Above high normal [id number] 98 - 107 [facility] POTASSIUM SERUM 3.8mmol/L Normal [id number] 3.5 - 5.1 C [facility] CO2 27mmol/L Normal [id number] 21 - 32 [facility] ALKALINE PHOSPHATASE 81U/L Normal [id number] 50 - 1 36 [facility] AST (SGOT) 18U/L Normal [id number] 15 - 37 [facility] GLOBULIN 3.2g/dL Normal [id number] 2.4 - 4.2 [facility] H A/G RATIO 1.3g/dL Normal [id number] [facility] ALT (SGPT) 24U/L Normal [id number] 12 - 78 [facility] MH BUN/CREAT.RATIO 19.4 Normal [id number] C [facility] CREATININE 0.98mg/dL Normal [id number] 0.55 - 1.3 [facility]H PROTEIN, TOTAL 7.4g/dL Normal [id number] 6.4 - 8.2 [facility] TROPONIN I HIGH SENSITIVE 3.8ng/L Normal [id number] 0 - 54 [facility] WBC 7.1K/uL Normal [id number] 3.7 - 10.3 [facility] MH ABSOLUTE GRANULOCYTES 4.4K/uL Normal [id number] 2.2 - 7.3 [facility] ABSOLUTE BASO 0K/uL Normal [id number] 0 - 0.2 [facility] RBC 4.9M/uL Normal [id number] 4 - 5.4 [facility] IMMATURE GRANULOCYTES 0% Normal [id number] 0 - 0 .45 [facility] EOSINOPHILS 3% Normal [id number] 0 - 6 [facility] MPV 10fL Normal [id number] 8 - 12 [facility] ABSOLUTE MONOS 0.4K/uL Normal [id number] 0.2 - 1.5 [facility] BASOPHILS 1% Normal [id number] 0 - 2 [facility] NUCLEATED RBC 0% Normal [id number] 0 - 0.2 [facility] MCV 86fL Normal [id number] 83 - 102 [facility] MCH 28PG Normal [id number] 27 - 34 [facility] HCT 42.2% Normal [id number] 36 - 46 [facility] ABSOLUTE LYMPHS 2K/uL Normal [id number] 1.5 - 4.9 C [facility] GRANULOCYTES 62% Normal [id number] 23 - 78 [facility] MONOCYTES 6% Normal [id number] 0 - 12 [facility] ABSOLUTE EOS 0.2K/uL Normal [id number] 0 - 0.7 [facility] LYMPHS 28% Normal [id number] 16 - 50 [facility] ABSOLUTE IMMATURE GRANULOCYTES 0K/uL Normal [id number] 0 - 0.3 [facility] HGB 13.9g/dL Normal [id number] 12.1 - 15.7 [facility] RDW 12.7% Normal [id number] 11.1 - 13.3 [facility] PLATELET COUNT 312K/uL Normal [id number] 150 - 480 [facility] MCHC 32.9g/dL Normal [id number] 31 - 36 [facility] ABSOLUTE NUCLEATED RBC 0K/uL Normal [id number] 0 - 0.012 [facility] PATIENT FASTING? UNKNOWN Normal [id number] [facility]
--- NOTE | 2024-08-29 10:48 | A.OFFVIS_ITS ---
Vital Signs 08/29/24 10:48 Height 5 ft 3 in Intake Visit Reasons: 7 month Follow Up Intake Note: Patient presents for 7 month follow up Allergies No Known Allergies Allergy (Verified 08/29/24 10:49) Medication List - Last Reconciled 08/29/24 by KAY Reese bupropion HCl XL 300 mg PO QAM cetirizine (Zyrtec) 10 mg PO DAILY PRN hydrochlorothiazide 25 mg PO DAILY lisinopril 40 mg PO DAILY multivitamin 1 tab PO DAILY sumatriptan succinate 50 - 100 mg orally at onset of headache, may repeat in 2 hrs PRN; max 2 tabs per day or 4 tabs/week (may take with Ibuprofen) 30 days HPI Comments Details: 54-yr-old female presents for f/u visit of migraine and mild ISA. She has seen cardiology- her echocardiogram and stress test results were WNL. Had chest CT at [facility] yesterday. Cardiology has recommended she avoid triptans. HST was c/w mild ISA, mostly in supine position, AHI 8/hr and O2 naidr 80%, SpO2 < 88% x's 2.2 min. She has started APAP 5-20 cmH2O, feels the pressure is ok, but the mask may leak/move. Feels she needs a larger size. Can wake up with skin irritation. She can still snore w/ the mask on. Her headaches have been coming and going, and not lasting as long. May have a a longer headache 2-3 x's per month. If headache lasts longer than 30-45 minutes, she takes Naproxen, which helps. States she has not needed to take her Sumatriptan. Also not really having the episodes of smelling a burning sensation a/w facial tingling- thinks maybe left sided. Feels this was worse when her headaches were worse. She is walking 15 minutes a day, but plans to increase this as she has been working w/ cardiology. [facility] Medical History Essential hypertension Surgical History Hx of cholecystectomy Family History Father Diabetes COPD (chronic obstructive pulmonary disease) Personal history of alcoholism Heart disease Mother Hypertension Brother Hypertension Social History Alcohol intake: current Alcohol intake frequency: a few times a week Patient Tobacco Use Status: Never used Tobacco Physical Exam Const General: cooperative and no acute distress Orientation/consciousness: patient oriented x3 Resp Effort & Inspection: normal respiratory effort and able to speak in complete sentences Neuro General: patient oriented x3 Cranial nerves: Yes CN's II-XII intact bilaterally Cognition (Neuro): normal cognition Psych Appearance: grossly normal Mental Status: mental status grossly normal Speech and movement: Normal speech and movement present Affect: normal affect Attitude: cooperative Assessment & Plan Assessment & Plan (1) Mild obstructive sleep apnea: Code(s): G47.33 - Obstructive sleep apnea (adult) (pediatric) Category: Medical (2) Snoring: Code(s): R06.83 - Snoring Category: Medical (3) Migraine with aura: Code(s): G43.109 - Migraine with aura, not intractable, without status migrainosus Category: Medical (4) Chest pain on exertion: Code(s): R07.9 - Chest pain, unspecified Category: Medical (5) Excessive daytime sleepiness: Code(s): G47.19 - Other hypersomnia Category: Medical Plan For mild ISA: Reviewed HST results, consistent with mild sleep apnea. Continue APAP 520 cm H2O nightly greater than 4 hours, as patient has had good reduction in residual AHI. Patient advised to try a larger mass, a CPAP mask liner, CPAP mask wipes, which may improve her PAP tolerance. Continue to clean and change PAP supplies routinely. We will also request ENT consult, as patient continues to have snoring despite APAP use with very mild residual AHI. ? For acute headache treatment: Take acute medications at the first sign of headache,. Continue Naproxen 220-440 mg every 12 hours prn. Hold sumatriptan order, per cardiology's current recommendations Previous acute migraine medication trials: Ibuprofen. Did try a sample of Nurtec- which seemed to help. Acute migraine medication contraindications: Triptans, per cardiology due to exertional angina. ? For headache prevention medication: Will consider if attack frequency/severity worsens. Previous migraine prevention medication trials: None Migraine prevention medication contraindications: None ? f/u in 6 months or sooner prn Orders: Referrals Ear/Nose/Throat Referral G47.33 - Obstructive sleep apnea (adult) (pediatric), J30.2 - Other seasonal allergic rhinitis, R06.83 - Snoring Medications: Discontinued sumatriptan succinate Discontinued Reason: Doctor's Order (0.5 - 1 x 100 mg) 50 - 100 mg orally at onset of headache, may repeat in 2 hrs PRN; max 2 tabs per day or 4 tabs/week (may take with Ibuprofen) 30 days 12 tabs 6RF migraine headache Coding Level of Care Code Est Pt Level 4 (91156) Diagnoses Mild obstructive sleep apnea G47.33 Snoring R06.83 Migraine with aura G43.109 Chest pain on exertion R07.9 Excessive daytime sleepiness G47.19
== END 2024-08-29 11:21 | disposition home or self-care (01) ==
PROVIDERS: PCP Hospitalist; Visit Provider Nurse Practitioner Family
DX: G47.33 Obstructive sleep apnea (adult) (pediatric) (principal); R06.83 Snoring; G43.109 Migraine with aura, not intractable, without status migrainosus; R07.9 Chest pain, unspecified; G47.19 Other hypersomnia
CPT/HCPCS: 99214

== ENCOUNTER → 2024-08-29 10:41 | Outpatient (BNVA) | payer BC, SELFPAY | PROVIDERS: PCP Hospitalist; Visit Provider Nurse Practitioner Family ==

== ENCOUNTER 2024-09-10 13:50 | Outpatient (AMB) | payer BC, SELFPAY ==
[2024-09-10 13:52] VITALS: BP 138/76; PULSE 78; BMI 35.4
--- NOTE | 2024-09-10 13:52 | MHC.OFFVIS ---
Vital Signs 09/10/24 13:52 Height 5 ft 3 in Weight 199 lb 11.821 oz BMI 35.4 BP 138/76 Blood Pressure Location Rt brachial Position Sitting Pulse 78 Intake Visit Reasons: f/upcta [facility]/ pre-op dr godfrey Intake Note: F/U CTA. Pt having neck lift 09/19/24. Manhole Builder Required: No Accompanied by: Self / Same As Patient Allergies No Known Allergies Allergy (Verified 09/10/24 14:10) Medication List - Last Reconciled 09/10/24 by Armando Skelton NP bupropion HCl XL 300 mg PO QAM cetirizine (Zyrtec) 10 mg PO DAILY PRN hydrochlorothiazide 25 mg PO DAILY lisinopril 40 mg PO DAILY multivitamin 1 tab PO DAILY HPI Comments Details: This is a 53-year-old female patient presenting for a follow-up visit to discuss the results were recent CTA. The patient was previously evaluated in the office for ongoing exertional chest pain, with no prior diagnosis of coronary artery or ischemic disease. She reports a past episode of hypertensive urgency that led to an ER visit, EKGs and biomarkers at that time were normal. Patient was started on hydrochlorothiazide since and reports symptom improvement. She has had a normal echo and stress test. Today she describes infrequent episodes of fluttering/palpitations which causes her to gasp for air. She reports this has been ongoing for some time but has never pursued a Holter monitor. She denies any associated symptoms of chest pain, shortness of breath, dizziness, presyncope or syncope during these episodes. [facility] Medical History Palpitation Pre-operative cardiovascular examination Essential hypertension Surgical History Hx of cholecystectomy Family History Father Diabetes COPD (chronic obstructive pulmonary disease) Personal history of alcoholism Heart disease Mother Hypertension Brother Hypertension Social History Alcohol intake: current Alcohol intake frequency: a few times a week Patient Tobacco Use Status: Never used Tobacco Review of Systems Const Denies chills, Denies fatigue, Denies fever(s), Denies weight gain and Denies weight loss ENT Denies dizziness Card Denies chest pain, Denies leg edema, Denies lightheadedness, Denies palpitations, Denies dyspnea on exertion, Denies orthopnea and Denies other Resp Denies cough and Denies dyspnea on exertion GI Denies hematochezia and Denies change in stool character Musc Denies abnormal gait, Denies muscle weakness, Denies numbness, Denies radiating pain into limb and Denies tingling Neuro Denies abnormal gait, Denies dizziness, Denies numbness and Denies tingling Endo Denies fatigue and Denies palpitations Physical Exam Vital Signs: Last Vital Signs Pulse 78 09/10/24 13:52 BP 138/76 09/10/24 13:52 BMI result Body Mass Index 35.4 Const General: cooperative, healthy appearing, comfortable and no acute distress Orientation/consciousness: patient oriented x3 HEENT Head: Yes normal to inspection Neck Neck: Yes normal visual inspection, Yes trachea midline and Yes supple Chest Chest palpation & inspection: normal inspection of the chest Resp Effort & Inspection: normal respiratory effort Auscultation: clear to auscultation bilaterally, no crackles, no rales, no rhonchi and no wheezes Cardio Jugular venous distension: no JVD Palpation: normal PMI Rate: regular rate Rhythm: regular rhythm Heart sounds: S1 normal heart sound present, S2 normal heart sound present, no click, no gallops, no murmurs and no rubs Peripheral pulses: Peripheral pulses 2+ throughout GI Inspection: Yes normal to inspection Palpation (GI): Soft to palpation Auscultation: normal bowel sounds Skin General skin exam: no rashes or lesions noted Neuro General: patient oriented x3 Extrem General: Yes normal to inspection, No no pedal edema and No calf tenderness Psych Appearance: grossly normal Mental Status: mental status grossly normal Speech and movement: Normal speech and movement present Office Procedures EKG Details: EKG today showed underlying normal sinus rhythm 78 beats per minute, low-voltage QRS, [place] [address]-Mvjiofpmwjeygqwlv, Complete Assessment & Plan Assessment & Plan (1) Palpitation: Code(s): R00.2 - Palpitations Category: Medical Plan: EKG today was normal sinus rhythm; normal echo as of 06/13/24. We will get a Holter 7 days to further assess palpitations. (2) Pre-operative cardiovascular examination: Code(s): Z01.810 - Encounter for preprocedural cardiovascular examination Category: Medical Plan: EKG today was normal sinus rhythm. 06/13/2024-normal echo with EF 60-65%; doing exercise stress test, patient able to achieve 92% MPHR with 7.7 Mets; had reported some mild shortness of breath and chest pressure that resolved with rest; Myocardial perfusion imaging was normal. 08/28/2024- coronary CTA with no significant coronary artery disease. Patient states has a upcoming procedure date for neck lift. Low risk from cardiac standpoint. Orders: Orders AMB EKG-In Office Today Z01.810 - Encounter for preprocedural cardiovascular examination ECG 7 day holter monitor Today R00.2 - Palpitations Coding Level of Care Code Est Pt Level 4 (67858) Diagnoses Palpitation R00.2 Pre-operative cardiovascular examination Z01.810 CPT Codes EKG - CPT: 83627-Epajqmxyvmazbhgaw, Complete ([id number]) Time Spent (min) 31 Comment Time spent in reviewing the chart, test results, assessment, counseling and documentation.
--- OUTSIDE RECORDS SUMMARY | 2024-09-10 13:52 | XMS_ITS ---
Author Organization [facility] Address [address] [place] [address] Care Team Providers Care Brick Pitcher Name Role Phone ARNAUD BROWNE Primary Care [...] 07/11/2024 Encounters Encounter Location Date Provider Diagnosis [facility] [address] [place] [address] 07/11/2024 ARNAUD BROWNE Other obesity due to [...] Meal replacements were recommended. Advised to use naxa-olj-bbsucau multivitamins and vitamin D. Advised to use [...] Meal replacements were recommended. Advised to use bfyl-pgk-gsjuwul multivitamins and vitamin D. Advised to use [...] Meal replacements were recommended. Advised to use tbrp-qcx-buhoady multivitamins and vitamin D. Advised to use [...] Details Follow Up: 4 Weeks, Reason: Provider Name:RANAUD BROWNE , 10/29/2024 03:30:00 PM, [address] [place] [address], [phone], Progress Notes * LALITO BAHENA RDOB: 1 (53 yo F)Acc No.[id number]:07/11/2024 Patient:?LALITO BAHENA R Provider:?ARNAUD BROWNE MD :1970???Age:53 Y???Sex:Female D ate:07/11/2024 Address:[address] [place] [address], [facility] Subjective: * Chief Complaints: * ???WM f/upF/U [...] Meal replacements were recommended. Advised to use wksz-cuw-yijiqih multivitamins and vitamin D. Advised to use [...] Procedure Codes:?3080F DIAST BP = 90 MM [id number] SYST BP GE 130 - 139MM HG * Follow Up:?4 Weeks * * Sign off status: Completed true * Provider:?ARNAUD BROWNE MD Date:?07/11 Generated for Winter horta/Carlton/eTransmitting on:?09/10/2024 01:52 PM EST History and Physical Notes * HPI [...]
--- OUTSIDE RECORDS SUMMARY | 2024-09-10 13:52 | XMS_ITS ---
Author Organization [facility] Address [address] [place] [address] Care Team Providers Care Buffer Inflated Pad Name Role Phone ARNAUD BROWNE Primary Care Provider REASON FOR VISIT Zepbound PA denied Encounters Encounter Location Date Provider Diagnosis [facility] [address] [place] [address] 05/30/2024 ARNAUD BROWNE Plan Of Treatment Next Appt Details Provider Name:ARNAUD BROWNE , 10/29/2024 03:30:00 PM, [address], [place], [address], Progress Notes * LALITO BAHENA RDOB: 1 (53 yo F)Acc No.[id number]:05/30/2024 Patient:?LALITO BAHENA :1970???Age:53 Y???Sex:Female Address:[address] [facility] [address] * true * Date:? Generated for Printi rula/Carlton/eTransmitting on:?09/10/2024 01:52 PM EST
--- OUTSIDE RECORDS SUMMARY | 2024-09-10 13:52 | XMS_ITS ---
Author Organization [facility] Address [address] [place] [address] Care Team Providers Care Band Lining Bander Name Role Phone ARNAUD BROWNE Primary Care [...] 08/12/2024 Encounters Encounter Location Date Provider Diagnosis [facility] [address] [place] [address] 08/12/2024 ARNAUD BROWNE Other obesity due to [...] Meal replacements were recommended. Advised to use xoqx-rab-fydpnep multivitamins and vitamin D. Advised to use [...] this note under HIPAA compliance and under [place] law mandated for scribe services. Patient aware [...] Meal replacements were recommended. Advised to use qdkv-peo-wwwjevu multivitamins and vitamin D. Advised to use [...] this note under HIPAA compliance and under [place] law mandated for scribe services. Patient aware [...] Meal replacements were recommended. Advised to use deub-ree-kksampl multivitamins and vitamin D. Advised to use [...] this note under HIPAA compliance and under [place] law mandated for scribe services. Patient aware [...] Meal replacements were recommended. Advised to use thdx-xfi-wsrarbb multivitamins and vitamin D. Advised to use [...] this note under HIPAA compliance and under [place] law mandated for scribe services. Patient aware [...] Future Test Test Name Order Date Lipid Panel-[id number] 08/12/2024 Next Appt Details Follow Up: 4 Weeks, Reason: Provider Name:ARNAUD BROWNE , 10/29/2024 03:30:00 PM, [address] [place] [address], [phone], Progress Notes * LALITO BAHENA RDOB: 1 (53 yo F)Acc No.[id number]:08/12/2024 Patient:?LALITO BAHENA R Provider:?ARNAUD BROWNE MD :1970???Age:53 Y???Sex:Female D ate:08/12/2024 Address:[address] [place] [address], [facility] Subjective: * Chief Complaints: * ???WM f/up [...] Ht: 65 in. * ???Past Orders: Lab:Lipid Panel-[id number] * Collection Date 05/28/2024 03/15/2024 Collection Time [...] (Ref Range: 5-40 mg/dL) LDL Chol Calc ([facility]) 160?H (Ref Range: 0-99 mg/dL) 145?H (Ref Range: 0-99 mg/dL) ???Lab:Vitamin D, 95-Rawtrvn-[id number] (Order Date - 03/13/2024) (Collection Date & Time - 408:56 AM)?ValueReference Range?Vitamin D, 25-Tssbglt24.230.0-100.0 - ng/mL ???Lab:Vitamin [id number] (Order Date - 03/13/2024) (Collection Date & Time - 03/15/2024 08:56 AM)?ValueReference Range?Vitamin J22244143-6509 - pg/mL ???Lab:Ferritin-[id number] (Order Date - 03/13/2024) (Collection Date & Time - 03/15/2024 08:56 AM)?ValueReference Range?Nwojpwvf3001-990 - ng/mL ???Lab:Comp. Metabolic Panel ([id number] (Order Date - 03/13/2024) (Collection Date & Time - 03/15/2024 08:56 AM)?ValueReference Range?Qszdoxj14 70-99 - mg/dL?YZP213-50 - mg/dL?Creatinine0.980.57-1.00 - mg/dL ?BUN/Creatinine Ryawy240-35 -?Owmcav842652-100 - mmol/L ?Potassium4.13.5-5.2 - mmol/L?Nukoqfgk59017-444 - mmol/L ?Carbon Dioxide, Txswf1426-85 - mmol/L?Calcium9.88.7-10.2 - mg/dL ?Protein, Total6.56.0-8.5 - g/dL?Albumin4.43.8-4.9 - g/dL ?Globulin, Total2.11.5-4.5 - g/dL?Bilirubin, Total0.60.0-1.2 - mg/dL?Alkaline Pebzsvhlexk6979-847 - IU/L?AST (SGOT)160-40 - IU/L ?ALT (SGPT)200-32 [...] Meal replacements were recommended. Advised to use jeid-wnh-xmynsgg multivitamins and vitamin D. Advised to use [...] this note under HIPAA compliance and under [place] law mandated for scribe services. Patient aware of service. Verbal consent and written consent taken from the patient. Patient understands and verbalizes understanding of the scribes services and all questions answered regarding scribes services. Patient agrees to use of scribes services. Plan: * Treatment: 2.?Mixed hyperlipidemia?LAB: Lipid Panel-[id number] (Ordered for 08/12/2024) 3.?Others? Refill Pravastatin Sodium Tablet, 20 MG, 1 tablet, Orally, Once a day, 30 days, 30, Refills 3.?? * Procedure Codes:?3078F DIAST BP < 80 MM JR8513V SYST BP = 140 MM HG6 NB7563I DIAST BP = 90 MM HG * Follow Up:?4 Weeks * * Sign off status: Completed true * Provider:?ARNAUD BROWNE MD Date:?08/12 Generated for Winter horta/Carlton/Dejanitting on:?09/10/2024 01:52 PM EST History and Physical Notes * HPI (History of Present Illness) Category Sub-Category Detail Notes Category Not es F/U Obesity Patient is here for f/u on weight managem ent Patient has lost weight We saw her in [facility]. She gained a pound since last visit [...]
--- OUTSIDE RECORDS SUMMARY | 2024-09-10 13:53 | XMS_ITS | Patient Health Record ---
Author Organization [facility] Address [address] [place] [address] Care Team Providers Care Residential Director Name Role Phone ARNAUD BROWNE Primary Care Provider [phone] Allergies Allergen (clinical drug ingredient) Drug/Non Drug Allergy documented on EMR Reaction Allergy Type Onset Date Status amlodipine Amlodipine rash Drug Allergy Activ e Results Component Value Reference Range Notes Lipid Panel-[id number] Reviewed date:05/29/2024 10:38:01 AM Interpretation: Performing Lab:[facility], [address] [facility], Phone - [phone], Director - Zoya Notes/Report: Cholesterol, Total 245 100-199 mg/dL Triglycerides 95 0-149 mg/dL HDL Cholesterol 69 >39 mg/dL VLDL Cholesterol Savage 16 5-40 mg/dL LDL Chol Calc (NIH) 160 0-99 mg/dL URINE CULTURE Reviewed date:04/13/2024 03:08:57 PM Interpretation: Performing Lab: Notes/Report: Original Ordering Provider: LARY GALLAGHER MD Specimen Source: URINE,CLEAN CATCH Collected: Apr 11, 2024 [employer], a member of [facility] Organism: ESCHERICHIA COLI [address] [place] [address] Antibiotics MORELIA Interpretation Electric Train Driver - Delia Leyva MD TRIMETHOPRIM/SULFAMETHOXAZOLE <=20 Sensitive [...] Notes/Report: Original Ordering Provider: LARY GALLAGHER MD [employer] [address] Electric Train Driver - Delia Leyva MD GLUCOSE, (UA) NEGATIVE [...] NEGATIVE HYALINE CAST, URINE 2 0-3 /LPF Ferritin-[id number] Reviewed date:03/18/2024 07:55:48 AM Interpretation: Performing Lab:[facility], [address] [facility], [place], Phone - [phone], Director - Zoya Notes/Report: Ferritin 73 15-150 ng/mL Vitamin [id number] Reviewed date:03/18/2024 07:55:49 AM Interpretation: Performing Lab:[facility] [place], [address] [place] [address], Phone - [phone], Director - Zoya Notes/Report: Vitamin B12 366 299-1286 pg/mL Vitamin D, 68-Fosuojz-[id number] Reviewed date:03/18/2024 07:55:51 AM Interpretation: Performing Lab:[facility] [place], [address] [place] [address], Phone - [phone], Director - Zoya Notes/Report: Vitamin D, 25-Hydroxy 36.2 30.0-100.0 ng/mL Vitamin D deficiency has been defined by the [place] of Medicine and an Endocrine Society practice guideline as a level of serum 25-OH vitamin D less than 20 ng/mL (1,2). The Endocrine Society went on to further define vitamin D insufficiency as a level between 21 and 29 ng/mL (2). 1. IOM ([place] of [employer]). 2010. Dietary reference intakes for calcium and D. [place]: The National Academies Press. 2. Byron MF, Julien GUAJARDO, Nata MULLER, et al. Evaluation, treatment, and prevention of vitamin D deficiency: an Endocrine Society clinical practice guideline. JCEM. 2010; 96(7):1911-30. Magnesium-[id number] Reviewed date:03/18/2024 07:55:54 AM Interpretation: Performing Lab:[facility] [place], [address] [place] [address], Phone - [phone], Director - Zoya Notes/Report: Magnesium 2.2 1.6-2.3 mg/dL Iron and TIBC-[id number] Reviewed date:03/18/2024 07:55:56 AM Interpretation: Performing Lab:[facility] [place], [address] [place] [address], Phone - [phone], Director - Zoya Notes/Report: Iron Bind.Cap.(TIBC) 281 250-450 ug/dL UIBC 163 131-425 ug/dL Iron 118 27-159 ug/dL Iron Saturation 42 15-55 % CBC, Platelet, No Differenti al-[id number] Reviewed date:03/18/2024 07:55:58 AM Interpretation: Performing Lab:[facility] [place], [address] [place] [address], Phone - [phone], Director - MDJodry Notes/Report: WBC 6.7 3.4-10.8 x10E3/uL RBC 4.72 3.77-5.28 x10E6/uL Hemoglobin 13.7 11.1-15.9 g/dL Hematocrit 41.8 34.0-46.6 % MCV 89 79-97 fL MCH 29.0 26.6-33.0 pg MCHC 32.8 31.5-35.7 g/dL RDW 13.1 11.7-15.4 % Platelets 302 150-450 x10E3/uL Lipid Panel-[id number] Reviewed date:03/18/2024 07:56:01 AM Interpretation: Performing Lab:[facility], [address] [facility], [place], Phone - [phone], Director - Zoya Notes/Report: Cholesterol, Total 224 100-199 mg/dL Triglycerides 83 0-149 mg/dL HDL Cholesterol 64 >39 mg/dL VLDL Cholesterol Savage 15 5-40 mg/dL LDL Chol Calc ([facility]) 145 0-99 mg/dL Comp. Metabolic Panel (14)-3 Reviewed date:03/18/2024 07:55:43 AM Interpretation: Performing Lab:[facility], [address] [facility], [place], Phone - [phone], Director - Shajiy Notes/Report: Glucose 94 70-99 [...] flux disease without esophagitis (K21.9) Referral Organization [facility] Referring Provider First Name [...] Notes Problem Obesity due to excess calories (501277365) Other obesity due to excess calories (E66.09) Active confirmed Problem Mixed hyperlipidemia (791154032) Mixed hyperlipidemia (E78.2) Active confirmed Problem Generalized anxiety disorder (13212983) Generalized anxiety disorder (F41.1) Active confirmed Problem Gastro-esophageal reflux disease without esophagitis (266439350) Gastro-esophageal reflux disease without esophagitis (K21.9) Active confirmed Problem History of bariatric surgical procedure (319862841) Bariatric surgery status (Z98.84) Active confirmed Problem Essential hypertension (64103879) Essential (primary) hypertension (I10) Active confirmed Vital Signs Heart Rate 84 /min 08/12/2024 Temperature 97.7 degrees Fahrenheit 08/12/2024 Blood pressure diastolic 75 mm Hg 08/12/2024 Oximetry 99 % 08/12/2024 Height 65 in 08/12/2024 Blood pressure systolic 140 mm Hg 08/12/2024 Weight 199.4 lbs 08/12/2024 BMI 33.18 kg/m2 08/12/2024 Encounters Encounter Location Date Provider Diagnosis [address] [address] 03/13/2024 LARES GUL Essential (primary) hypertension I10 ; Other obesity due to excess calories E66.09 ; Bariatric surgery status Z98.84 ; Dietary counseling and surveillance Z71.3 ; Gastro-esophageal reflux disease without esophagitis K21.9 ; Shortness of breath R06.02 and Generalized anxiety disorder F41.[address] [address] 04/17/2024 LARES GUL Essential (primary) hypertension I10 ; Bariatric surgery status Z98.84 ; Gastro-esophageal reflux disease without esophagitis K21.9 ; Generalized anxiety disorder F41.1 and Mixed hyperlipidemia E78.[address] [place] [address] 05/29/2024 LARES HOLLIE Essential (primary) hypertension I10 ; Mixed hyperlipidemia E78.2 ; Other obesity due to excess calories E66.09 and Dietary counseling and surveillance Z71.[address] [place] [address] 07/11/2024 LARES HOLLIE Other obesity due to excess calories E66.09 ; Dietary counseling and surveillance Z71.3 and Essential (primary) hypertension I10 [address] [place] [address] 08/12/2024 LARES HOLLIE Other obesity due to excess calories E66.09 ; Dietary counseling and surveillance Z71.3 ; Essential (primary) hypertension I10 and Mixed hyperlipidemia E78.[address] [place] [address] 12/25/[address] [place] [address] 03/13/[address] [place] [address] 05/30/2024 ARNAUD BROWNE Assessments Encounter Date Diagnosis [...] this note under HIPAA compliance and under [place] law mandated for scribe services. Patient aware [...] this note under HIPAA compliance and under [place] law mandated for scribe services. Patient aware [...] this note under HIPAA compliance and under [place] law mandated for scribe services. Patient aware [...] this note under HIPAA compliance and under [place] law mandated for scribe services. Patient aware [...] this note under HIPAA compliance and under [place] law mandated for scribe services. Patient aware [...] Meal replacements were recommended. Advised to use sigc-nmc-tgcqwji multivitamins and vitamin D. Advised to use [...] Meal replacements were recommended. Advised to use ohkv-vhc-wgfwzid multivitamins and vitamin D. Advised to use [...] Meal replacements were recommended. Advised to use oiks-sqv-ztstzee multivitamins and vitamin D. Advised to use [...] this note under HIPAA compliance and under [place] law mandated for scribe services. Patient aware [...] Meal replacements were recommended. Advised to use jdsv-pxd-gkdvqyw multivitamins and vitamin D. Advised to use [...] this note under HIPAA compliance and under [place] law mandated for scribe services. Patient aware [...] Meal replacements were recommended. Advised to use tmoo-bgh-jrcjvzy multivitamins and vitamin D. Advised to use [...] this note under HIPAA compliance and under [place] law mandated for scribe services. Patient aware [...] Meal replacements were recommended. Advised to use exqd-hhd-omhrcvt multivitamins and vitamin D. Advised to use [...] this note under HIPAA compliance and under [place] law mandated for scribe services. Patient aware [...] this note under HIPAA compliance and under [place] law mandated for scribe services. Patient aware [...] this note under HIPAA compliance and under [place] law mandated for scribe services. Patient aware [...] this note under HIPAA compliance and under [place] law mandated for scribe services. Patient aware [...] this note under HIPAA compliance and under [place] law mandated for scribe services. Patient aware [...] this note under HIPAA compliance and under [place] law mandated for scribe services. Patient aware [...] this note under HIPAA compliance and under [place] law mandated for scribe services. Patient aware [...] this note under HIPAA compliance and under [place] law mandated for scribe services. Patient aware [...] this note under HIPAA compliance and under [place] law mandated for scribe services. Patient aware [...] Meal replacements were recommended. Advised to use asjt-zxr-koiaydv multivitamins and vitamin D. Advised to use [...] this note under HIPAA compliance and under [place] law mandated for scribe services. Patient aware [...] this note under HIPAA compliance and under [place] law mandated for scribe services. Patient aware [...] this note under HIPAA compliance and under [place] law mandated for scribe services. Patient aware [...] Future Test Test Name Order Date Zinc, Urine-[id number] 03/13/2024 Lipid Panel-[id number] 05/29/2024 Lipid Panel-[id number] 08/12/2024 Next Appt Details Provider Name:ARNAUD BROWNE , 10/29/2024 03:30:00 PM, [address] [place] [address], [phone], Insurance Providers Payer Name Payer Address Payer Phone Subscriber Number Group Number Insured Name Patient Relationship to Insured Coverage Start Date Coverage End Date [facility] [address] [place] [address] [id number] EVELYN PAUL Self - patient is the insured [facility] [address] [place] [address] [id number] EVELYN PAUL Self - patient is the insured Medical (General) History Medical History History ICD Code Hypertension Perimenopausal symptoms on Wellbutrin Surgical History Surgery Date(Month/Year) 2004 gastric sleeve, Dr. Price, was 226 lbs a nd lost 50-60 lbs 2015 cholecystectomy, Nevaeh Hall
== END 2024-09-10 14:22 | disposition home or self-care (01) ==
PROVIDERS: PCP Hospitalist
DX: R00.2 Palpitations (principal); Z01.810 Encounter for preprocedural cardiovascular examination
CPT/HCPCS: 93010; 99214

== ENCOUNTER → 2024-09-10 13:50 | Outpatient (BNVA) | payer BC, SELFPAY | PROVIDERS: PCP Hospitalist | DX: Z01.810 Encounter for preprocedural cardiovascular examination (principal); R00.2 Palpitations; I10 Essential (primary) hypertension | CPT/HCPCS: 93005 ==

== ENCOUNTER → 2024-10-01 15:02 | Outpatient (REF) | payer BC, SELFPAY ==
--- OUTSIDE RECORDS SUMMARY | 2024-10-01 17:00 | XMS_ITS | Clinical Summary ---
Author Organization [facility] Address [address] [place] [address] Care Team Providers Care Golf Technician Name Role Phone Unavailable Primary Care Provider Unavailabl e Medications No known medications Active Problems No known active problems Family History Medical History Relation Name Comments No Sig Med Hx Mother Relation Name Status Comments Mother Alive Social History Tobacco Use Types Packs/Day Years Used Date Smoking Tobacco: Never Alcohol Use Standard Drinks/Week Comments Not Asked 0 (1 standard drink = 0.6 oz pur e alcohol) Sex and Gender Information Value Date Recorded Sex Assigned at Not on file Gender Identity Not on file Sexual Orientation Not on file Job Start Date Occupation Industry Not on file Not on file Not on file Plan of Treatment Health Maintenance Due Date Last Done Comments Hepatitis B Vaccines (1 of 3 - 3-dose series) 1970 Hepatitis C Screening 1970 Depression Screening 1982 Preventative Health Evaluation 1988 Cervical Cancer Screening (Pap Smear) 1991 Colon Cancer Screening (Colonoscopy) 2015 Breast Cancer Screening (Mammogram) 2020 Shingrix-Zoster Vaccine (1 of 2) 2020 DTap / Tdap / Td (2 - Td or Tdap) 01/24/2024 01/23/2014 COVID-19 Vaccine ( season) 2024 01/22/2021, 01/02/2021 Influenza Vaccine (#1) 2024 , 06/29/2020, 06/10/2019, Additional history exists Pneumococcal Vaccine Aged Out No long er eligible based on patient's age to complete this topic RSV Ped < 20 months Aged Out No longe r eligible based on patient's age to complete this topic Evelyn Paul Personal/Family [place] [address] [place] [address]
--- OUTSIDE RECORDS SUMMARY | 2024-10-01 17:00 | XMS_ITS | Clinical Summary ---
Author Organization [employer] Address [address] [address] [facility] [address] [place] [address] Care Team Providers Care Starting Gate Driver Name Role Phone Unavailable Primary Care Provider Unavailabl e Immunizations Name Administration Dates Next Due Influenza injectable quadriv alent preservative free 08/11/2023 Influenza, IIV3, injectable 06/29/2020, 9,07/12/2016 Tdap 01/23/2014 Social History Tobacco Use Types Packs/Day Years Used Date Smoking Tobacco: Never Assessed Comments Unknown Sex and Gender Information Value Date Recorded Sex Assigned at Female 08/11/2023 12:44 PM EST Legal Sex Female 12:42 PM EST Gender Identity Female 08/11/2023 12:44 PM EST Sexual Orientation Don't know 08/11/2023 12 :44 PM EST Plan of Treatment Health Maintenance Due Date Last Done Comments CT Colonography 1970 Colonoscopy 1970 Colorectal Cancer Screening 1970 Depression Screening 1970 FIT DNA/Cologuard 1970 FIT 1970 FOBT 1970 HIV Screening 1970 Lipid Panel 1970 SDOH Screening 1970 Sigmoidoscopy 1970 Alcohol/Substance Use Screening 1982 Tobacco Screening 1982 Hepatitis C Screening 1988 Hepatitis B Vaccines (1 of 3 - 19+ 3-dose series) 1989 Pap Smear 1991 Cervical Cancer Screening 2000 HPV/Cotest 2000 Mammogram 2010 Zoster Vaccines (1 of 2) 2020 DTaP/Tdap/Td Vaccines (2 - Td or Tdap) 01/24/2024 01/23/2014 COVID-19 Vaccine ( season) 2024 01/22/2021, 01/02/2021 Influenza Vaccine (#1) 2024 3, 06/29/2020, 06/10/2019, Additional history exists RSV Patients and Patients Aged 60 years or older (1 - 1-dose 75+ series) 2045 HIB Vaccines Aged Out No longer eligi ble based on patient's age to complete this topic HPV Vaccines Aged Out No longer eligi ble based on patient's age to complete this topic Hepatitis A Vaccines Aged Out No long er eligible based on patient's age to complete this topic IPV Vaccines Aged Out No longer eligi ble based on patient's age to complete this topic Meningococcal Vaccine Aged Out No tye kasi eligible based on patient's age to complete this topic Pneumococcal Vaccine: Pediatrics (0 to 5 Years) and At-Risk Patients (6 to 64 Years) Aged Out No longer eligible based on patient's age to complete this topic RSV under 20 months Aged Out No longe r eligible based on patient's age to complete this topic Rotavirus Vaccines Aged Out No longer eligible based on patient's age to complete this topic Insurance PPO
--- OUTSIDE RECORDS SUMMARY | 2024-10-01 17:00 | XMS_ITS | Clinical Summary ---
Author Organization [facility] [facility] Address [address] [place] [address] Care Team Providers Care Cheese Cooker Name Role Phone Blaire Oden MD Primary Care Pro vider Social History Tobacco Use Types Packs/Day Years Used Date Smoking Tobacco: Never Assessed Comments Unknown Sex and Gender Information Value Date Recorded Sex Assigned at Not on file Legal Sex Female 2:48 PM EDT Gender Identity Not on file Sexual Orientation Not on file Plan of Treatment Health Maintenance Due Date Last Done Comments Colorectal Cancer: COLONOSCO PY Screening every 10 yrs (or Modifier) 1970 Depression: Screening Annual ly using PHQ-2/9 in Adults 18 yrs or above (or HM Modifier)([facility]) 1988 Hepatitis C Virus Infection in Adolescents and Adults: Screening (or Modifier) ([facility]) 1988 [facility] Screening Reminder: Rosmery portillo for all adults ([facility]) 1988 Tobacco Smoking Cessation: i n Adults excluding Women: Behavioral and Pharmacotherapy Interventions ([facility]) 1988 DTaP/Tdap/Td Vaccines ([facility]) (1 - Tdap) 1989 Cervical Cancer Screenin 1-65 yrs of age (or Modifier) 1991 Cervical Cancer Screening: P ap every 3 yrs pts age 21-65 1991 Cervical Cancer: Pap Screeni ng with Modifier timing ([facility]) 1991 Cervical Cancer: hrHPV alone or with cotesting Pap for Pts 30-65yrs screening every 5yrs ([facility]) 1991 Colorectal Cancer Screening 45 -75 Yrs (or HM Modifier) 2015 Colorectal Cancer: FLEXIBLE SIGMOIDOSCOPY Screening every 5 yrs 2015 Colorectal Cancer: Fecal Immunochemical Test (FIT) Annually [facility] 2015 Colorectal Cancer: High-sens itivity gFOBT Screening Annually [facility] 2015 Colorectal Cancer: Stool Col oguard Screening every 3 yrs 2015 Colorectal Cancer:CT Colonog guillermo Screening every 5 yrs 2015 Lipid Screening: Every 5 yrs for Women aged 45+ (or HM Modifier) ([facility]) 2016 Breast Cancer: Screening Rosmery ually age 50-74 yrs (or HM Modifier)([facility]) 2020 Zoster/Shingles Vaccine Seri es Screening: Adults aged 18+ yrs (or HM Modifiers)([facility]) (1 of 2) 2020 Flu Vaccination: Yearly for ages 18mos through 64 years (or Modifier)([facility]) 04/11/2024 COVID-19 Vaccine Screening: Initial Series and Booster Status ([facility]) (2023- season) 2024 Pneumococcal Vaccination Scr eening: Pts 0-19 & 19-64 yrs of age ([facility]) Aged Out No longer eligible based on patient's age to complete this topic Medical Devices Not on file Insurance [facility] Care Teams Cheese Cooker Relationship Specialty Start Date End Date Blaire Oden MD [address] [facility] [address] [place] [address] PCP - Tray Checker 05/21/20
== END ==
LOC: HO.CARD 15:02
PROVIDERS: PCP Hospitalist
DX: R00.2 Palpitations (principal)
CPT/HCPCS: 93242

== ENCOUNTER → 2024-10-01 15:06 | Outpatient (BNV) | payer BC, SELFPAY | PROVIDERS: PCP Hospitalist; Visit Provider Internal Medicine Cardiovascular Disease | DX: R00.0 Tachycardia, unspecified (principal) | CPT/HCPCS: 93244 ==

== ENCOUNTER 2025-02-26 11:15 | Outpatient (AMB) | payer BC, SELFPAY ==
[2025-02-26 11:18] VITALS: BP 142/98; PULSE 66; O2SAT 99; BMI 33.7
--- NOTE | 2025-02-26 11:18 | A.OFFVIS_ITS ---
Vital Signs 02/26/25 11:18 Height 5 ft 3 in Weight 190 lb BMI 33.7 BP 142/98 H Blood Pressure Location Rt brachial Position Sitting Pulse 66 Pulse Source Pulse Oximeter Pulse Oximetry (%) 99 Oxygen Delivery Method Room Air Intake Visit Reasons: Follow Up 6mo Citrus Fruit Packer Required: No Accompanied by: Self / Same As Patient Allergies lisinopril Allergy (Unknown, Verified 02/26/25 11:21) Swelling Medication List - Last Reconciled 02/26/25 by KAY Reese bupropion HCl XL 300 mg PO QAM carvedilol phosphate ER 20 mg PO DAILY cetirizine (Zyrtec) 10 mg PO DAILY PRN hydrochlorothiazide 25 mg PO DAILY multivitamin 1 tab PO DAILY pantoprazole 20 mg PO DAILY HPI Comments Details: 54-yr-old female presents for f/u visit of migraine and mild ISA. Pt reports she had a rough month between the end of December and January. She reports she underwent a scheduled hernia repair for GERD and globus sensation on January 02, however there was a complication, and had to undergo a hernia repair revision on January 06, which was complicated by a pneumothorax, bilateral collapsed lungs, and required 2 week in hosp stay. Then after the discharge, she developed angioedema approx 30 minutes after having an eyeborw and upperlip wax removal- requiring hosp eval, which was thought to be secondary to her lisinopril- which she had been taking for 18 yrs. She has since stopped the lisinopril. She has completed the cardiology work-up, which has been overall reassuring other than showing a possible small PFO. She may occasionally have an odd palpitation. She has not been using her APAP, as she is still not tolerating the face mask even after trying the mask liners. She also notes that she tosses and turns quite a bit. However, she would like to discuss trialing a new mask so that she can start using PAP therapy again. HST was c/w mild ISA, mostly in supine position, AHI 8/hr and O2 naidr 80%, SpO2 < 88% x's 2.2 min. Her headaches have been coming and going, and now resolving w/in 3-45 minutes w/ an OTC Tylenol or Aleve. States she has not needed to take her Sumatriptan. Rarely may have a very brief episode of having a burning smell. EEG was normal. Previous episodes of smelling a burning sensation a/w facial tingling- thinks maybe left sided. Feels this was worse when her headaches were worse. [facility] Medical History (Updated 02/26/25 @ 16:34 by KAY Reese) Palpitation Pre-operative cardiovascular examination Essential hypertension Surgical History (Updated 02/26/25 @ 11:20 by OUMAR Doan) History of hernia surgery (~12/2024) Hx of cholecystectomy Family History Father Diabetes COPD (chronic obstructive pulmonary disease) Personal history of alcoholism Heart disease Mother Hypertension Brother Hypertension Social History Alcohol intake: current Alcohol intake frequency: a few times a week Patient Tobacco Use Status: Never used Tobacco Physical Exam Vital Signs: Last Vital Signs Pulse 66 02/26/25 11:18 BP 142/98 H 02/26/25 11:18 Pulse Ox 99 02/26/25 11:18 Oxygen Delivery Method Room Air 02/26/25 11:18 BMI result Body Mass Index 33.7 Const General: cooperative and no acute distress Orientation/consciousness: patient oriented x3 Resp Effort & Inspection: normal respiratory effort and able to speak in complete sentences Neuro General: patient oriented x3 Cranial nerves: Yes CN's II-XII intact bilaterally Cognition (Neuro): normal cognition Psych Appearance: grossly normal Mental Status: mental status grossly normal Speech and movement: Normal speech and movement present Affect: normal affect Attitude: cooperative Assessment & Plan Assessment & Plan (1) Migraine with aura: Comment: Likely episodes of smelling something burning, is migraine aura Code(s): G43.109 - Migraine with aura, not intractable, without status migrainosus Category: Medical Qualifiers: Status migrainosus presence: without status migrainosus Intractability: not intractable Qualified Code(s): G43.109 - Migraine with aura, not intractable, without status migrainosus (2) Mild obstructive sleep apnea: Code(s): G47.33 - Obstructive sleep apnea (adult) (pediatric) Category: Medical (3) Snoring: Code(s): R06.83 - Snoring Category: Medical (4) Excessive daytime sleepiness: Code(s): G47.19 - Other hypersomnia Category: Medical Plan For mild IAS: Resume APAP 5-20 cm H2O nightly greater than 4 hours, as patient has previously had good reduction in residual AHI. * We will request a new PAP mask fitting. * Clean CPAP machine and supplies routinely. * Change CPAP supplies routinely. * Use distilled water in CPAP water reservoir. * Pt to contact us or respiratory company with any questions or concerns. * We follow-up on request ENT consult, as patient continues to have snoring despite APAP use with very mild residual AHI. ? For acute migraine with aura headache treatment: * Take acute medications at the first sign of headache,. * Continue Naproxen 220-440 mg every 12 hours prn. * Continue Sumatriptan 100mg tab, 1/2 - 1 tab (50-100mg) at onset of headache, may repeat in 2 hours. Max of 2 tabs (200mg) per 24 hours. * May take sumatriptan with OTC Tylenol 650-1,000mg every 4-6 hours, Ibuprofen (liquid gels) 600mg every 6 hours, or Naproxen (liquid gels) 440mg q 12 hrs prn. * Acute migraine medication contraindications: Triptans, per cardiology due to exertional angina. ? For migraine with aura headache prevention medication: * Will consider if attack frequency/severity worsens. * Previous migraine prevention medication trials: None * Migraine prevention medication contraindications: None ? f/u in 6 months or sooner prn Medications: Refilled sumatriptan succinate 50 - 100 mg orally at onset of headache, may repeat in 2 hrs PRN; max 2 tabs per day or 4 tabs/week (may take with Ibuprofen) 12 tabs 6RF migraine headache 30 days Coding Level of Care Code Est Pt Level 4 (11195) Diagnoses Migraine with aura and without status migrainosus, not intractable G43.109 Status migrainosus presence: without status migrainosus Intractability: not intractable Mild obstructive sleep apnea G47.33 Snoring R06.83 Excessive daytime sleepiness G47.19
--- OUTSIDE RECORDS SUMMARY | 2025-02-26 13:05 | XMS_ITS | Clinical Summary ---
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 Name Role Phone Blaire Oden MD Primary [...] Adults 18 yrs or above (or HM Modifier)([facility]) 1988 Hepatitis C Virus Infection in Adolescents and Adults: Screening (or Modifier) ([facility]) 1988 [facility] Screening Reminder: Rosmery portillo for all adults ([facility]) 1988 Tobacco Smoking Cessation: i n Adults excluding Women: Behavioral and Pharmacotherapy Interventions ([facility]) 1988 DTaP/Tdap/Td Vaccines ([facility]) (1 - Tdap) 1989 Cervical Cancer Screenin 1-65 yrs of age (or Modifier) 1991 Cervical Cancer Screening: P ap every 3 yrs pts age 21-65 1991 Cervical Cancer: Pap Screeni ng with Modifier timing ([facility]) 1991 Cervical Cancer: hrHPV alone or with cotesting Pap for Pts 30-65yrs screening every 5yrs ([facility]) 1991 Colorectal Cancer Screening 45 -75 Yrs (or HM Modifier ) 2015 Colorectal Cancer: FLEXIBLE SIGMOIDOSCOPY Screening every 5 yrs 2015 Colorectal Cancer: Fecal Imm unochemical Test (FIT) Annually [facility] 2015 Colorectal Cancer: High-sens itivity gFOBT Screening Annually [facility] 2015 Colorectal Cancer: Stool Col oguard Screening every 3 yrs 2015 Colorectal Cancer:CT Colonography Screening every 5 yr s 2015 Breast Cancer: Screening Rosmery ually age 50-74 yrs (or HM Modifier)([facility]) 2020 Pneumococcal Vaccination Scr eening: Patients 50+ yrs of age ([facility]) (1 of 1 - PCV) 2020 Zoster/Shingles Vaccine Seri es Screening: Adults aged 18+ yrs (or HM Modifiers)([facility]) (1 of 2) 2020 COVID-19 Vaccine Screening: Initial Series and Booster Status ([facility]) (2023- season) 2024 Flu Vaccination: Yearly for ages 18mos through 64 years (or Modifier)([facility]) 04/11/2025 Medical Devices Not on file Insurance [facility] Care Teams Chemicals Fermentation Operator Relationship Specialty Start Date End Date Blaire Oden MD [address] [facility] [address] [place] [address] PCP - Advanced Manufacturing Technician 05/21/20
== END 2025-02-26 12:01 | disposition home or self-care (01) ==
LOC: HO.HSMS 11:16
PROVIDERS: PCP Hospitalist; Visit Provider Nurse Practitioner Family
DX: G43.109 Migraine with aura, not intractable, without status migrainosus (principal); G47.33 Obstructive sleep apnea (adult) (pediatric); R06.83 Snoring; G47.19 Other hypersomnia
CPT/HCPCS: 99214

== ENCOUNTER 2025-08-27 10:41 | Outpatient (AMB) | payer BC, SELFPAY ==
[2025-08-27 10:46] VITALS: BP 130/100; PULSE 85; O2SAT 99; BMI 31.7
--- NOTE | 2025-08-27 10:46 | A.OFFVIS_ITS ---
Vital Signs 08/27/25 10:46 Height 5 ft 3 in Weight 179 lb BMI 31.7 BP 130/100 H Blood Pressure Location Lt brachial Position Sitting Pulse 85 Pulse Source Pulse Oximeter Pulse Oximetry (%) 99 Oxygen Delivery Method Room Air Intake Visit Reasons: 6mon follow-up Dental Detail Representative Required: No Accompanied by: Self / Same As Patient Allergies lisinopril Allergy (Unknown, Verified 08/27/25 10:47) Swelling Medication List - Last Reconciled 08/27/25 by KAY Reese bupropion HCl XL 300 mg PO QAM carvedilol phosphate ER 20 mg PO DAILY cetirizine (Zyrtec) 10 mg PO DAILY PRN hydrochlorothiazide 25 mg PO DAILY multivitamin 1 tab PO DAILY pantoprazole 20 mg PO DAILY sumatriptan succinate 50 - 100 mg orally at onset of headache, may repeat in 2 hrs PRN; max 2 tabs per day or 4 tabs/week (may take with Ibuprofen) 30 days HPI Comments Details: 54-yr-old female presents for f/u visit of migraine and mild ISA. She started semaglutide recently. She has noticed a slight increase in bilateral occipital headaches- now occurring a couple times a week which usually responds to 2 OTC Aleve tabs. Has not needed to take sumatriptan. She wonders if this r/t starting semaglutide and maybe needing to drink more or d/t her diet changes. She is adding protein shake to her coffee, and taking fruit and yogurt for breakfast- taking about 30 gm per morning. Trying to walk regularly- but it is harder when it is cold. Has not yet started to do resistance training. She is considering joining [employer] or other She did see ENT, who advised her to try a OTC mouth guard, which she is tolerating well. She can still be fatigues- notes that she can feel a bit more invigorated after taking a walk. She still continues to have a daily, intermittent, since of smelling/tasting smokey/cigarette smell. Not a/w headache. 02/26/2025, HPI: Pt reports she had a rough month between the end of December and January. She reports she underwent a scheduled hernia repair for GERD and globus sensation on January 02, however there was a complication, and had to undergo a hernia repair revision on January 06, which was complicated by a pneumothorax, bilateral collapsed lungs, and required 2 week in hosp stay. Then after the discharge, she developed angioedema approx 30 minutes after having an eyeborw and upperlip wax removal- requiring hosp eval, which was thought to be secondary to her lisinopril- which she had been taking for 18 yrs. She has since stopped the lisinopril. She has completed the cardiology work-up, which has been overall reassuring other than showing a possible small PFO. She may occasionally have an odd palpitation. She has not been using her APAP, as she is still not tolerating the face mask even after trying the mask liners. She also notes that she tosses and turns quite a bit. However, she would like to discuss trialing a new mask so that she can start using PAP therapy again. HST was c/w mild ISA, mostly in supine position, AHI 8/hr and O2 naidr 80%, SpO2 < 88% x's 2.2 min. Her headaches have been coming and going, and now resolving w/in 3-45 minutes w/ an OTC Tylenol or Aleve. States she has not needed to take her Sumatriptan. Rarely may have a very brief episode of having a burning smell. EEG was normal. Previous episodes of smelling a burning sensation a/w facial tingling- thinks maybe left sided. Feels this was worse when her headaches were worse. [facility] Medical History (Updated 02/26/25 @ 16:34 by KAY Reese) Palpitation Pre-operative cardiovascular examination Essential hypertension Surgical History (Updated 02/26/25 @ 11:20 by OUMAR Doan) History of hernia surgery (~12/2024) Hx of cholecystectomy Family History Father Diabetes COPD (chronic obstructive pulmonary disease) Personal history of alcoholism Heart disease Mother Hypertension Brother Hypertension Social History Alcohol intake: current Alcohol intake frequency: a few times a week Patient Tobacco Use Status: Never used Tobacco Physical Exam Vital Signs: Last Vital Signs Pulse 85 08/27/25 10:46 BP 130/100 H 08/27/25 10:46 Pulse Ox 99 08/27/25 10:46 Oxygen Delivery Method Room Air 08/27/25 10:46 BMI result Body Mass Index 31.7 Const General: cooperative and no acute distress Orientation/consciousness: patient oriented x3 Resp Effort & Inspection: normal respiratory effort and able to speak in complete sentences Neuro General: patient oriented x3 Cranial nerves: Yes CN's II-XII intact bilaterally Cognition (Neuro): normal cognition Psych Appearance: grossly normal Mental Status: mental status grossly normal Speech and movement: Normal speech and movement present Affect: normal affect Attitude: cooperative Assessment & Plan Assessment & Plan (1) Migraine with aura: Comment: Likely episodes of smelling something burning, is migraine aura Code(s): G43.109 - Migraine with aura, not intractable, without status migrainosus Category: Medical Qualifiers: Intractability: not intractable Status migrainosus presence: without status migrainosus Qualified Code(s): G43.109 - Migraine with aura, not intractable, without status migrainosus (2) Mild obstructive sleep apnea: Code(s): G47.33 - Obstructive sleep apnea (adult) (pediatric) Category: Medical (3) Snoring: Code(s): R06.83 - Snoring Category: Medical (4) Excessive daytime sleepiness: Code(s): G47.19 - Other hypersomnia Category: Medical Plan For mild ISA: No recent PAP therapy use Continue OTC mouth guard Follow-up with ENT as needed If she fatigue and sustains greater than 10% weight loss since her last sleep study, we can consider repeating sleep study. At this time, hold APAP 5-20 cm H2O- as she has not tolerated this well ? For acute migraine with aura headache treatment: * Take acute medications at the first sign of headache,. * Continue Naproxen 220-440 mg every 12 hours prn. * Continue Sumatriptan 100mg tab, 1/2 - 1 tab (50-100mg) at onset of headache, may repeat in 2 hours. Max of 2 tabs (200mg) per 24 hours. * May take sumatriptan with OTC Tylenol 650-1,000mg every 4-6 hours, Ibuprofen (liquid gels) 600mg every 6 hours, or Naproxen (liquid gels) 440mg q 12 hrs prn. * Acute migraine medication contraindications: Triptans, per cardiology due to exertional angina. ? For migraine with aura headache prevention medication: * Will consider if attack frequency/severity worsens. * Previous migraine prevention medication trials: None * Migraine prevention medication contraindications: None ? f/u in 6 months or sooner prn Coding Level of Care Code Est Pt Level 4 (94014) Diagnoses Migraine with aura and without status migrainosus, not intractable G43.109 Intractability: not intractable Status migrainosus presence: without status migrainosus Mild obstructive sleep apnea G47.33 Snoring R06.83 Excessive daytime sleepiness G47.19
--- OUTSIDE RECORDS SUMMARY | 2025-08-27 13:38 | XMS_ITS | Clinical Summary ---
Author Organization [facility] Prior to 02/08/25 Address [address] [place] [address] Care Team Providers Care Manager Exchange Name Role Phone Unavailable Primary Care Provider [...] Tdap) 01/24/2024 01/23/2014 COVID-19 Vaccine ( season) 2025 01/22/2021, 01/02/2021 Influenza Vaccine (#1) 2025 3, 06/29/2020, 06/10/2019, Additional history exists Pneumococcal Vaccine Aged Out No long er eligible based on patient's age to complete this topic RSV Ped < 20 months Aged Out No longe r eligible based on patient's age to complete this topic Evelyn Paul Personal/Family Self 1970 [address] [place] [id number]
--- OUTSIDE RECORDS SUMMARY | 2025-08-27 13:38 | XMS_ITS | Patient Health Record ---
Author Organization [employer] Address [address] [place] [address] Care Team Providers Care Weaving Professor Name Role Phone HOLLIE LARES Primary Care Provider [phone] Mallika Dumont Unavailable [phone] Allergies Allergen (clinical drug ingredient) Drug/Non Drug Allergy documented on EMR Reaction Allergy Type Onset Date Status lisinopril Lisinopril Lip swelling Drug Allergy Ac tive amlodipine Amlodipine rash Drug Allergy Activ e Results Component Value Reference Range Notes Lipid Panel-[id number] Reviewed date:07/02/2025 10:09:40 AM Interpretation: Performing Lab:[facility], [address] [facility], Phone - [phone], Director - Zoya Notes/Report: Cholesterol, Total 255 100-199 mg/dL Triglycerides 123 0-149 mg/dL HDL Cholesterol 67 >39 mg/dL VLDL Cholesterol Savage 22 5-40 mg/dL LDL Chol Calc ([facility]) 166 0-99 mg/dL Albumin/Creatinine Ratio,Uri ne-[id number] Reviewed date:07/02/2025 10:09:51 AM Interpretation: Performing Lab:[facility], [address] [facility], [place], Phone - [phone], Director - Zoya Notes/Report: Creatinine, Urine 360.9 Not Estab. mg/dL Albumin, Urine 35.1 Not Estab. ug/mL Alb/Creat Ratio 10 0-29 mg/g creat Normal: 0 - 29 Moderately increased: 30 - 300 Severely increased: >300 Reason For Referral No Information Medications Medication SIG (Take, Route, Frequency, Duration) Notes Start Date End Date Status Pravastatin Sodium 20 MG TAKE 1 TABLET B Y MOUTH EVERY DAY FOR 30 DAYS; Duration: 90 Active hydroCHLOROthiazide 25 MG 1 tablet in morning Orally Once a day; Duration: 90 days Active Wegovy 0.25 MG/0.5ML 0.25 mL Subcutaneous once a week; Duration: 30 days Not-Taking Wellbutrin XL 300 MG 1 tablet in the morning Orally Once a day; Duration: 90 days Active Zepbound 2.5 MG/0.5ML 0.5 mL Subcutaneous weekly; Duration: 30 days 10/29/2024 Not-Taking hydrOXYzine HCl 25 MG 1 tablet Orally daily; Duration: 30 days 04/17/2024 Active Carvedilol 6.25 MG TAKE 1 TABLET BY MOUTH TWICE A DAY WITH FOOD FOR 30 DAYS; Duration: 90 Not-Taking Multivitamin Active Methocarbamol 750 MG 1 tablet Orally every 8 hours; Duration: 30 days Not-Taking Claritin 10 MG 1 tablet Orally Once a day 06/10/2025 Active oxyCODONE HCl 5 MG 1 capsule as needed Orally every 6 hrs; Duration: 15 days Partial Fill upon Patient Request 01/22/2025 Not-Taking Carvedilol 3.125 MG TAKE 1 TABLET BY MOUTH TWICE A DAY WITH FOOD FOR 30 DAYS; Duration: 90 Not-Taking ZyrTEC Allergy Not-T aking Coreg 12.5 MG 1 tablet with food Orally Twice a day; Duration: 30 days 08/11/2025 Active Naltrexone HCl 50 MG 1 tablet Orally Once a day; Duration: 30 days 08/12/2024 Not-Taking Pantoprazole Sodium 20 MG TAKE 1 TABLET BY MOUTH EVERY DAY FOR 30 DAYS; Duration: 90 Active Naltrexone HCl 50 MG 1 tablet Orally Once a day; Duration: 30 days 06/01/2023 Not-Taking Carvedilol Phosphate ER 20 MG TAKE 1 CAPSULE BY MOUTH EVERY DAY WITH FOOD FOR 30 DAYS; Duration: 90 days Not-Taking amLODIPine Besylate 2.5 MG 1 tablet Orally Once a day; Duration: 30 days 05/18/2023 Not-Taking EpiPen 2-Alistair 0.3 MG/0.3ML as directed Injection as needed; Duration: 30 days 04/12/2022 Not-Taking Immunizations Vaccine Route Administration Date Status Comme [...] Notes Problem Obesity due to excess calories (983570469) Other obesity due to excess calories (E66.09) Active confirmed Problem Mixed hyperlipidemia (670012274) Mixed hyperlipidemia (E78.2) Active confirmed Problem Generalized anxiety disorder (63123208) Generalized anxiety disorder (F41.1) Active confirmed Problem Gastro-esophageal reflux disease without esophagitis (881031687) Gastro-esophageal reflux disease without esophagitis (K21.9) Active confirmed Problem History of bariatric surgical procedure (300228855) Bariatric surgery status (Z98.84) Active confirmed Problem Essential hypertension (67718732) Essential (primary) hypertension (I10) Active confirmed Problem Obstructive sleep apnea syndrome (31921347) ISA on CPAP (G47.33) Active confirmed Vital Signs Heart Rate 88 /min 08/11/2025 Temperature 96.2 degrees Fahrenheit 08/11/2025 Oximetry 99 % 08/11/2025 Blood pressure diastolic 86 mm Hg 08/11/2025 Height 65 in 08/11/2025 Blood pressure systolic 120 mm Hg 08/11/2025 Weight 180.4 lbs 08/11/2025 BMI 30.02 kg/m2 08/11/2025 Encounters Encounter Location Date Provider Diagnosis [address] [place] [address] 10/29/2024 Mallika Dumont Other obesity due to excess calories E66.09 ; Dietary counseling and surveillance Z71.3 ; Essential (primary) hypertension I10 ; Mixed hyperlipidemia E78.2 and ISA on CPAP G47.[address] [place] [address] 11/12/2024 Ghaugustoer Yaoloum Essential (primary) hypertension I10 [address] [place] [address] 12/03/2024 Ghadeer Yaoloum Essential (primary) hypertension I10 [address] [place] [address] 01/21/2025 [facility] Hospital discharge follow-up Z09 ; Pleural effusion, not elsewhere classified J90 ; Generalized abdominal pain R10.84 and Cramp and spasm R25.[address] [place] [address] 06/10/2025 Estherbert Yaocodyum Pleural effusion, no t elsewhere classified J90 ; Essential (primary) hypertension I10 ; Mixed hyperlipidemia E78.2 ; ISA on CPAP G47.33 ; Gastro-esophageal reflux disease without esophagitis K21.9 ; Generalized anxiety disorder F41.1 and Other obesity due to excess calories E66.[address] [place] [address] 07/02/2025 Estheraugustovinod Samayoaloum Essential (primary) hypertension I10 ; Mixed hyperlipidemia E78.2 ; ISA on CPAP G47.33 ; Gastro-esophageal reflux disease without esophagitis K21.9 ; Generalized anxiety disorder F41.1 and Other obesity due to excess calories E66.[address] [place] [address] 08/11/2025 ARNAUD BROWNE Essential (primary) hypertension I10 ; Mixed hyperlipidemia E78.2 ; ISA on CPAP G47.33 ; Gastro-esophageal reflux disease without esophagitis K21.9 ; Generalized anxiety disorder F41.1 and Other obesity due to excess calories E66.[address] [place] [address] [facility] [facility] [place] [address] 01/22/[address] [place] [address] 01/22/2025 ARNAUD BROWNE [address] [place] [address] 01/22/2025 Mallika Dumont [address] [place] [address] 01/22/2025 [facility] [place] [address] 01/23/2025 [facility] Dumont [address] [place] [address] 01/24/2025 Estheradevinod Barberum Pleural effusion, no t elsewhere classified J90 [address] [place] [address] 01/30/2025 Mallika Samayoaloum Diaphragmatic hernia without obstruction or gangrene K44.[address] [place] [address] 02/18/2025 Mallika Barberum Diaphragmatic hernia without obstruction or gangrene K44.[address] [place] [address] 02/18/2025 ARNAUD BROWNE Diaphragmatic hernia without obstruction or gangrene K44.9 Assessments Encounter Date Diagnosis (ICD Code) Assessment Notes Treatment Notes Treatment Clinical Notes Section Notes 10/29/2024 Other obesity due to excess calories (ICD-10 - E66.09) Evelyn is 53 years old with hypertension, acid reflux, hyperlipidemia, generalized anxiety disorder, status post bariatric surgery is here for follow-up for weight management. We saw her in June. She gained a pound since last visit. Plan is as follows: Hypertension. - Her blood pressure was running high today. Coreg has been added to the regimen. Advised low calorie foods and cut back on the salt and increase aerobic activities and monitor blood pressure at home. Check in two weeks Hyperlipidemia. - Previous lipid panel was abnormal, She is currently on Pravastatin 20mg. Check lipid panel. ISA on CPAP. She has been diagnosed recently. Dietary recommendations. Food recall was done today and patient advised to be on low calorie, low carbohydrate diet. Restrict calories to less than 1500 kcal in 24 hours. Low glycemic index foods and encouraged. Meal replacements were recommended. Advised to use [id number] multivitamins and vitamin D. Advised to use calorie counter and adhere to portion control. Monthly goal is to lose 4-6 pounds Pharmacotherapy. She is not taking Wegovy at this point. Naltrexone causes dizziness. continue Wellbutrin 300 MG once a day. She is not a good candidate for phentermine given HTN. She will benefit the most from GLP-1, especially Zepbound. She has metabolic syndrome of HTN, HLD which increases the risk for cardiovascular event. She also has ISA on CPAP. We will retry again for zepound. Side effects explained to the patient. Goal [...] counseling General health concerns discussed with patient. I have rendered the services for this patient under direct supervision of Dr. Browne, who did not see the patient but was available upon request 10/29/2024 Dietary counseling and surveillance (ICD-10 - Z71.3) vEelyn is 53 years old with hypertension, acid reflux, hyperlipidemia, generalized anxiety disorder, status post bariatric surgery is here for follow-up for weight management. We saw her in June. She gained a pound since last visit. Plan is as follows: Hypertension. - Her blood pressure was running high today. Coreg has been added to the regimen. Advised low calorie foods and cut back on the salt and increase aerobic activities and monitor blood pressure at home. Check in two weeks Hyperlipidemia. - Previous lipid panel was abnormal, She is currently on Pravastatin 20mg. Check lipid panel. ISA on CPAP. She has been diagnosed recently. Dietary recommendations. Food recall was done today and patient advised to be on low calorie, low carbohydrate diet. Restrict calories to less than 1500 kcal in 24 hours. Low glycemic index foods and encouraged. Meal replacements were recommended. Advised to use [id number] multivitamins and vitamin D. Advised to use calorie counter and adhere to portion control. Monthly goal is to lose 4-6 pounds Pharmacotherapy. She is not taking Wegovy at this point. Naltrexone causes dizziness. continue Wellbutrin 300 MG once a day. She is not a good candidate for phentermine given HTN. She will benefit the most from GLP-1, especially Zepbound. She has metabolic syndrome of HTN, HLD which increases the risk for cardiovascular event. She also has ISA on CPAP. We will retry again for zepound. Side effects explained to the patient. Goal [...] counseling General health concerns discussed with patient. I have rendered the services for this patient under direct supervision of Dr. Browne, who did not see the patient but was available upon request 11/12/2024 Essential (primary) hypertension (ICD-10 - I10) Mrs. Paul is a 54-year-old lady with a history of hypertension, perimenopausal symptoms on Wellbutrin and obesity status post bariatric surgery here for follow up on blood pressure. As follows Hypertension - Blood pressure is still elevated in the office today. She is currently on Coreg 3.125 twice daily and I have increased the medication to 6.25mg twice daily. Advised to reduce her salt intake. Increase hydration and exercising with weight loss. We will check in 2 weeks I have rendered the services for this patient under direct supervision of Dr. Browne, who did not see the patient but was available upon request 12/03/2024 Essential (primary) hypertension (ICD-10 - I10) Mrs. Paul is a 54-year-old lady with a history of hypertension, perimenopausal symptoms on Wellbutrin and obesity status post bariatric surgery here for follow up on blood pressure. As follows Hypertension - Blood pressure is well controlled. She prefers to do the carb extended release as she has been forgetting to take the nighttime pill. According to Coreg website the appropriate dosage will be 20 mg. Continue on lisinopril and had a Hydrochlorothiazide. Advised to reduce her salt intake. Increase hydration and exercising with weight loss. I have rendered the services for this patient under direct supervision of Dr. Browne, who did not see the patient but was available upon request 01/21/2025 Pleural effusion, not elsewhere classified (ICD-10 - J90) Mrs. Paul is a 54-year-old lady with a history of hypertension, perimenopausal symptoms on Wellbutrin and obesity status post bariatric surgery here for Reason for hospital follow-up. Patient initially presented to the hospital for paraesophageal hernia repair however 2 days after she experiences abdominal pain persistent she went to the hospital againand she underwent redo paraesophageal hernia repair with Dr. Fung. Postop complicated with pleural effusion and constant abdominal spasming. Plan as follow: Paraesophageal repair: - Due to complication of inflammation, it was decided on loosening the crural sutures. She is currently back on PPI and has a follow-up with GI. Pleural effusion. Required thoracentesis in the hospital. She continues to experience mild cough and SOB. Lungs are CTAB. SHe is able to speak full sentences. HR and O2 are WNL, we will get an Xray of the chest to ensure resolution. Cramp/spasm and abdominal pain. We will refill oxycodone and methocarbamol for abdominal spasm. She was given nerve block at the hospital by pain management, however no improvement. No further imaging was performed to delineate the cause of abdominal spasm. We will get an MRI of the abdomen and patient is to follow with GI. Hospital discharge note has been reviewed with the patient. Medication list updated. General concerns have been discussed I have rendered the services for this patient under direct supervision of Dr. Browne, who did not see the patient but was available upon request 01/21/2025 Hospital discharge follow-up (ICD-10 - Z09) Mrs. Paul is a 54-year-old lady with a history of hypertension, perimenopausal symptoms on Wellbutrin and obesity status post bariatric surgery here for Reason for hospital follow-up. Patient initially presented to the hospital for paraesophageal hernia repair however 2 days after she experiences abdominal pain persistent she went to the hospital againand she underwent redo paraesophageal hernia repair with Dr. Fung. Postop complicated with pleural effusion and constant abdominal spasming. Plan as follow: Paraesophageal repair: - Due to complication of inflammation, it was decided on loosening the crural sutures. She is currently back on PPI and has a follow-up with GI. Pleural effusion. Required thoracentesis in the hospital. She continues to experience mild cough and SOB. Lungs are CTAB. SHe is able to speak full sentences. HR and O2 are WNL, we will get an Xray of the chest to ensure resolution. Cramp/spasm and abdominal pain. We will refill oxycodone and methocarbamol for abdominal spasm. She was given nerve block at the hospital by pain management, however no improvement. No further imaging was performed to delineate the cause of abdominal spasm. We will get an MRI of the abdomen and patient is to follow with GI. Hospital discharge note has been reviewed with the patient. Medication list updated. General concerns have been discussed I have rendered the services for this patient under direct supervision of Dr. Browne, who did not see the patient but was available upon request 01/24/2025 Pleural effusion, not elsewhere classified (ICD-10 - J90) 01/30/2025 Diaphragmatic hernia without obstruction or gangrene (ICD-10 - K44.9) 02/18/2025 Diaphragmatic hernia without obstruction or gangrene (ICD-10 - K44.9) 02/18/2025 Diaphragmatic hernia without obstruction or gangrene (ICD-10 - K44.9) 06/10/2025 Pleural effusion, not elsewhere classified (ICD-10 - J90) Mrs. Paul is a 54-year-old lady with a history of hypertension, perimenopausal symptoms on Wellbutrin and obesity status post bariatric surgery here for Follow-up. Plan as follows Hypertension. Blood pressure is elevated in the office today, she has been none consistent with taking carvedilol, she is also on hydrochlorothiazide 25 mg. Lisinopril was discontinued as she developed angioedema. For now I will have patient resume back on carvedilol 20 mg daily and hydrochlorothiazide 25 mg. We will follow up in 3 weeks if no improvement then we can consider adding hydralazine into the regimen. She only had one episode of loss of consciousness, however that was primarily attributed to possible dehydration and given hot weather, she has been taking carvedilol every now and then without any symptoms, thus she is cleared to be on this medication again daily. She had blood work done through a program for insurance, she will records of comp Hyperlipidemia. She is on pravastatin 20 mg at bedtime. Check lipid panel ISA. She is currently not on CPAP due to dry skin secondary to using the mask, I have recommended to do a trial of nasal cannula instead. Complications of ISA discussed History of pleural effusion and pneumothorax which were the secondary to surgery that was done back in January 2025. Assurance is given as her vital signs are within normal limit, oxygen and heart rate are within normal limits, she is able to speak in full sentences she is not in distress, her lungs sound clear to auscultation bilateral, denies any symptoms of dyspnea on exertion or coughing or shortness of breath. She experiences pain that tends to happen at bedtime. I have assured patient that this pain is more so musculoskeletal compared to pulmonary symptoms however she is adamant about getting a chest x-ray to ensure that pneumothorax has resolved. ALIDA. Mood is stable on current regimen. Continue Wellbutrin 300 mg and hydroxyzine as needed. GERD. She does take omeprazole 20mg as needed Seasonal allergies. stable she takes Claritin as needed Obesity,/need for surveillance. She currently enrolled through a program through her health insurance, she will be started on Ozempic 0.25mg. Diet modification is also discussed along with regimental exercises. General concerns have been discussed I have rendered the services for this patient under direct supervision of Dr. Browne, who did not see the patient but was available upon request 06/10/2025 Essential (primary) hypertension (ICD-10 - I10) Mrs. Paul is a 54-year-old lady with a history of hypertension, perimenopausal symptoms on Wellbutrin and obesity status post bariatric surgery here for Follow-up. Plan as follows Hypertension. Blood pressure is elevated in the office today, she has been none consistent with taking carvedilol, she is also on hydrochlorothiazide 25 mg. Lisinopril was discontinued as she developed angioedema. For now I will have patient resume back on carvedilol 20 mg daily and hydrochlorothiazide 25 mg. We will follow up in 3 weeks if no improvement then we can consider adding hydralazine into the regimen. She only had one episode of loss of consciousness, however that was primarily attributed to possible dehydration and given hot weather, she has been taking carvedilol every now and then without any symptoms, thus she is cleared to be on this medication again daily. She had blood work done through a program for insurance, she will records of comp Hyperlipidemia. She is on pravastatin 20 mg at bedtime. Check lipid panel ISA. She is currently not on CPAP due to dry skin secondary to using the mask, I have recommended to do a trial of nasal cannula instead. Complications of ISA discussed History of pleural effusion and pneumothorax which were the secondary to surgery that was done back in January 2025. Assurance is given as her vital signs are within normal limit, oxygen and heart rate are within normal limits, she is able to speak in full sentences she is not in distress, her lungs sound clear to auscultation bilateral, denies any symptoms of dyspnea on exertion or coughing or shortness of breath. She experiences pain that tends to happen at bedtime. I have assured patient that this pain is more so musculoskeletal compared to pulmonary symptoms however she is adamant about getting a chest x-ray to ensure that pneumothorax has resolved. ALIDA. Mood is stable on current regimen. Continue Wellbutrin 300 mg and hydroxyzine as needed. GERD. She does take omeprazole 20mg as needed Seasonal allergies. stable she takes Claritin as needed Obesity,/need for surveillance. She currently enrolled through a program through her health insurance, she will be started on Ozempic 0.25mg. Diet modification is also discussed along with regimental exercises. General concerns have been discussed I have rendered the services for this patient under direct supervision of Dr. Browne, who did not see the patient but was available upon request 07/02/2025 Mixed hyperlipidemia (ICD-10 - E78.2) Mrs. Paul is a 54-year-old lady with a history of hypertension, perimenopausal symptoms on Wellbutrin and obesity status post bariatric surgery here for Follow-up. Plan as follows Hypertension. Blood pressure is elevated in the office today, she has been none consistent with taking carvedilol, she is also on hydrochlorothiazide 25 mg. She will resume back on carvedilol 20 mg daily Instead of carvedilol 6.25 twice a day and hydrochlorothiazide 25 mg. We will follow up in 4 weeks if no improvement then we can consider adding hydralazine into the regimen. She only had one episode of loss of consciousness, however that was primarily attributed to possible dehydration and given hot weather, she has been taking carvedilol every now and then without any symptoms, thus she is cleared to be on this medication again daily. She had blood work done through a program for insurance, she will records of comp Hyperlipidemia. Noncompliant with pravastatin 20 mg, Advised on compliance with diet modification. Check lipid panel In 4-6 weeks. ISA. She is currently not on CPAP due to dry skin secondary to using the mask, I have recommended to do a trial of nasal cannula instead. Complications of ISA discussed ALIDA. Mood is stable on current regimen. Continue Wellbutrin 300 mg and hydroxyzine as needed. GERD. She does take omeprazole 20mg as needed Seasonal allergies. stable she takes Claritin as needed Obesity,/need for surveillance. She currently enrolled through a program through her health insurance, she As on Ozempic 0.25mg. Lost 9 pounds since her last visit. Diet modification is also discussed along with regimental exercises. General concerns have been discussed I have rendered the services for this patient under direct supervision of Dr. Browne, who did not see the patient but was available upon request 07/02/2025 Essential (primary) hypertension (ICD-10 - I10) Mrs. Paul is a 54-year-old lady with a history of hypertension, perimenopausal symptoms on Wellbutrin and obesity status post bariatric surgery here for Follow-up. Plan as follows Hypertension. Blood pressure is elevated in the office today, she has been none consistent with taking carvedilol, she is also on hydrochlorothiazide 25 mg. She will resume back on carvedilol 20 mg daily Instead of carvedilol 6.25 twice a day and hydrochlorothiazide 25 mg. We will follow up in 4 weeks if no improvement then we can consider adding hydralazine into the regimen. She only had one episode of loss of consciousness, however that was primarily attributed to possible dehydration and given hot weather, she has been taking carvedilol every now and then without any symptoms, thus she is cleared to be on this medication again daily. She had blood work done through a program for insurance, she will records of comp Hyperlipidemia. Noncompliant with pravastatin 20 mg, Advised on compliance with diet modification. Check lipid panel In 4-6 weeks. ISA. She is currently not on CPAP due to dry skin secondary to using the mask, I have recommended to do a trial of nasal cannula instead. Complications of ISA discussed ALIDA. Mood is stable on current regimen. Continue Wellbutrin 300 mg and hydroxyzine as needed. GERD. She does take omeprazole 20mg as needed Seasonal allergies. stable she takes Claritin as needed Obesity,/need for surveillance. She currently enrolled through a program through her health insurance, she As on Ozempic 0.25mg. Lost 9 pounds since her last visit. Diet modification is also discussed along with regimental exercises. General concerns have been discussed I have rendered the services for this patient under direct supervision of Dr. Browne, who did not see the patient but was available upon request 08/11/2025 Mixed hyperlipidemia (ICD-10 - E78.2) Mrs. Paul is a 54-year-old lady with a history of hypertension, perimenopausal symptoms on Wellbutrin and obesity status post bariatric surgery here for Follow-up. Plan as follows Hypertension. Blood pressure especially diastolic blood pressure running high. We switch her to carvedilol 12.5 mg 1 tablet twice a day and continue HCTZ 25 mg daily. She only had one episode of loss of consciousness, however that was primarily attributed to possible dehydration and given hot weather, she has been taking carvedilol every now and then without any symptoms, thus she is cleared to be on this medication again daily. She had blood work done through a program for insurance, she will records of comp Hyperlipidemia. Noncompliant with pravastatin 20 mg, Advised on compliance with diet modification. Check lipid panel In 4-6 weeks. ISA. She is currently not on CPAP due to dry skin secondary to using the mask, I have recommended to do a trial of nasal cannula instead. Complications of ISA discussed ALIDA. Mood is stable on current regimen. Continue Wellbutrin 300 mg and hydroxyzine as needed. GERD. She does take omeprazole 20mg as needed Seasonal allergies. stable she takes Claritin as needed Obesity,/need for surveillance. She currently enrolled through a program through her health insurance, she As on Ozempic 0.25mg. Lost 9 pounds since her last visit. Diet modification is also discussed along with regimental exercises. General concerns have been discussed 08/11/2025 Essential (primary) hypertension (ICD-10 - I10) Mrs. Paul is a 54-year-old lady with a history of hypertension, perimenopausal symptoms on Wellbutrin and obesity status post bariatric surgery here for Follow-up. Plan as follows Hypertension. Blood pressure especially diastolic blood pressure running high. We switch her to carvedilol 12.5 mg 1 tablet twice a day and continue HCTZ 25 mg daily. She only had one episode of loss of consciousness, however that was primarily attributed to possible dehydration and given hot weather, she has been taking carvedilol every now and then without any symptoms, thus she is cleared to be on this medication again daily. She had blood work done through a program for insurance, she will records of comp Hyperlipidemia. Noncompliant with pravastatin 20 mg, Advised on compliance with diet modification. Check lipid panel In 4-6 weeks. ISA. She is currently not on CPAP due to dry skin secondary to using the mask, I have recommended to do a trial of nasal cannula instead. Complications of ISA discussed ALIDA. Mood is stable on current regimen. Continue Wellbutrin 300 mg and hydroxyzine as needed. GERD. She does take omeprazole 20mg as needed Seasonal allergies. stable she takes Claritin as needed Obesity,/need for surveillance. She currently enrolled through a program through her health insurance, she As on Ozempic 0.25mg. Lost 9 pounds since her last visit. Diet modification is also discussed along with regimental exercises. General concerns have been discussed 08/11/2025 ISA on CPAP (ICD-10 - G47.33) Mrs. Paul is a 54-year-old lady with a history of hypertension, perimenopausal symptoms on Wellbutrin and obesity status post bariatric surgery here for Follow-up. Plan as follows Hypertension. Blood pressure especially diastolic blood pressure running high. We switch her to carvedilol 12.5 mg 1 tablet twice a day and continue HCTZ 25 mg daily. She only had one episode of loss of consciousness, however that was primarily attributed to possible dehydration and given hot weather, she has been taking carvedilol every now and then without any symptoms, thus she is cleared to be on this medication again daily. She had blood work done through a program for insurance, she will records of comp Hyperlipidemia. Noncompliant with pravastatin 20 mg, Advised on compliance with diet modification. Check lipid panel In 4-6 weeks. ISA. She is currently not on CPAP due to dry skin secondary to using the mask, I have recommended to do a trial of nasal cannula instead. Complications of ISA discussed ALIDA. Mood is stable on current regimen. Continue Wellbutrin 300 mg and hydroxyzine as needed. GERD. She does take omeprazole 20mg as needed Seasonal allergies. stable she takes Claritin as needed Obesity,/need for surveillance. She currently enrolled through a program through her health insurance, she As on Ozempic 0.25mg. Lost 9 pounds since her last visit. Diet modification is also discussed along with regimental exercises. General concerns have been discussed 07/02/2025 ISA on CPAP (ICD-10 - G47.33) Mrs. Paul is a 54-year-old lady with a history of hypertension, perimenopausal symptoms on Wellbutrin and obesity status post bariatric surgery here for Follow-up. Plan as follows Hypertension. Blood pressure is elevated in the office today, she has been none consistent with taking carvedilol, she is also on hydrochlorothiazide 25 mg. She will resume back on carvedilol 20 mg daily Instead of carvedilol 6.25 twice a day and hydrochlorothiazide 25 mg. We will follow up in 4 weeks if no improvement then we can consider adding hydralazine into the regimen. She only had one episode of loss of consciousness, however that was primarily attributed to possible dehydration and given hot weather, she has been taking carvedilol every now and then without any symptoms, thus she is cleared to be on this medication again daily. She had blood work done through a program for insurance, she will records of comp Hyperlipidemia. Noncompliant with pravastatin 20 mg, Advised on compliance with diet modification. Check lipid panel In 4-6 weeks. ISA. She is currently not on CPAP due to dry skin secondary to using the mask, I have recommended to do a trial of nasal cannula instead. Complications of ISA discussed ALIDA. Mood is stable on current regimen. Continue Wellbutrin 300 mg and hydroxyzine as needed. GERD. She does take omeprazole 20mg as needed Seasonal allergies. stable she takes Claritin as needed Obesity,/need for surveillance. She currently enrolled through a program through her health insurance, she As on Ozempic 0.25mg. Lost 9 pounds since her last visit. Diet modification is also discussed along with regimental exercises. General concerns have been discussed I have rendered the services for this patient under direct supervision of Dr. Browne, who did not see the patient but was available upon request 06/10/2025 Mixed hyperlipidemia (ICD-10 - E78.2) Mrs. Paul is a 54-year-old lady with a history of hypertension, perimenopausal symptoms on Wellbutrin and obesity status post bariatric surgery here for Follow-up. Plan as follows Hypertension. Blood pressure is elevated in the office today, she has been none consistent with taking carvedilol, she is also on hydrochlorothiazide 25 mg. Lisinopril was discontinued as she developed angioedema. For now I will have patient resume back on carvedilol 20 mg daily and hydrochlorothiazide 25 mg. We will follow up in 3 weeks if no improvement then we can consider adding hydralazine into the regimen. She only had one episode of loss of consciousness, however that was primarily attributed to possible dehydration and given hot weather, she has been taking carvedilol every now and then without any symptoms, thus she is cleared to be on this medication again daily. She had blood work done through a program for insurance, she will records of comp Hyperlipidemia. She is on pravastatin 20 mg at bedtime. Check lipid panel ISA. She is currently not on CPAP due to dry skin secondary to using the mask, I have recommended to do a trial of nasal cannula instead. Complications of ISA discussed History of pleural effusion and pneumothorax which were the secondary to surgery that was done back in January 2025. Assurance is given as her vital signs are within normal limit, oxygen and heart rate are within normal limits, she is able to speak in full sentences she is not in distress, her lungs sound clear to auscultation bilateral, denies any symptoms of dyspnea on exertion or coughing or shortness of breath. She experiences pain that tends to happen at bedtime. I have assured patient that this pain is more so musculoskeletal compared to pulmonary symptoms however she is adamant about getting a chest x-ray to ensure that pneumothorax has resolved. ALIDA. Mood is stable on current regimen. Continue Wellbutrin 300 mg and hydroxyzine as needed. GERD. She does take omeprazole 20mg as needed Seasonal allergies. stable she takes Claritin as needed Obesity,/need for surveillance. She currently enrolled through a program through her health insurance, she will be started on Ozempic 0.25mg. Diet modification is also discussed along with regimental exercises. General concerns have been discussed I have rendered the services for this patient under direct supervision of Dr. Browne, who did not see the patient but was available upon request 01/21/2025 Generalized abdominal pain (ICD-10 - R10.84) Mrs. Paul is a 54-year-old lady with a history of hypertension, perimenopausal symptoms on Wellbutrin and obesity status post bariatric surgery here for Reason for hospital follow-up. Patient initially presented to the hospital for paraesophageal hernia repair however 2 days after she experiences abdominal pain persistent she went to the hospital againand she underwent redo paraesophageal hernia repair with Dr. Fung. Postop complicated with pleural effusion and constant abdominal spasming. Plan as follow: Paraesophageal repair: - Due to complication of inflammation, it was decided on loosening the crural sutures. She is currently back on PPI and has a follow-up with GI. Pleural effusion. Required thoracentesis in the hospital. She continues to experience mild cough and SOB. Lungs are CTAB. SHe is able to speak full sentences. HR and O2 are WNL, we will get an Xray of the chest to ensure resolution. Cramp/spasm and abdominal pain. We will refill oxycodone and methocarbamol for abdominal spasm. She was given nerve block at the hospital by pain management, however no improvement. No further imaging was performed to delineate the cause of abdominal spasm. We will get an MRI of the abdomen and patient is to follow with GI. Hospital discharge note has been reviewed with the patient. Medication list updated. General concerns have been discussed I have rendered the services for this patient under direct supervision of Dr. Browne, who did not see the patient but was available upon request 10/29/2024 Essential (primary) hypertension (ICD-10 - I10) Evelyn is 53 years old with hypertension, acid reflux, hyperlipidemia, generalized anxiety disorder, status post bariatric surgery is here for follow-up for weight management. We saw her in June. She gained a pound since last visit. Plan is as follows: Hypertension. - Her blood pressure was running high today. Coreg has been added to the regimen. Advised low calorie foods and cut back on the salt and increase aerobic activities and monitor blood pressure at home. Check in two weeks Hyperlipidemia. - Previous lipid panel was abnormal, She is currently on Pravastatin 20mg. Check lipid panel. ISA on CPAP. She has been diagnosed recently. Dietary recommendations. Food recall was done today and patient advised to be on low calorie, low carbohydrate diet. Restrict calories to less than 1500 kcal in 24 hours. Low glycemic index foods and encouraged. Meal replacements were recommended. Advised to use [id number] multivitamins and vitamin D. Advised to use calorie counter and adhere to portion control. Monthly goal is to lose 4-6 pounds Pharmacotherapy. She is not taking Wegovy at this point. Naltrexone causes dizziness. continue Wellbutrin 300 MG once a day. She is not a good candidate for phentermine given HTN. She will benefit the most from GLP-1, especially Zepbound. She has metabolic syndrome of HTN, HLD which increases the risk for cardiovascular event. She also has ISA on CPAP. We will retry again for zepound. Side effects explained to the patient. Goal [...] counseling General health concerns discussed with patient. I have rendered the services for this patient under direct supervision of Dr. Browne, who did not see the patient but was available upon request 10/29/2024 Mixed hyperlipidemia (ICD-10 - E78.2) Evelyn is 53 years old with hypertension, acid reflux, hyperlipidemia, generalized anxiety disorder, status post bariatric surgery is here for follow-up for weight management. We saw her in June. She gained a pound since last visit. Plan is as follows: Hypertension. - Her blood pressure was running high today. Coreg has been added to the regimen. Advised low calorie foods and cut back on the salt and increase aerobic activities and monitor blood pressure at home. Check in two weeks Hyperlipidemia. - Previous lipid panel was abnormal, She is currently on Pravastatin 20mg. Check lipid panel. ISA on CPAP. She has been diagnosed recently. Dietary recommendations. Food recall was done today and patient advised to be on low calorie, low carbohydrate diet. Restrict calories to less than 1500 kcal in 24 hours. Low glycemic index foods and encouraged. Meal replacements were recommended. Advised to use [id number] multivitamins and vitamin D. Advised to use calorie counter and adhere to portion control. Monthly goal is to lose 4-6 pounds Pharmacotherapy. She is not taking Wegovy at this point. Naltrexone causes dizziness. continue Wellbutrin 300 MG once a day. She is not a good candidate for phentermine given HTN. She will benefit the most from GLP-1, especially Zepbound. She has metabolic syndrome of HTN, HLD which increases the risk for cardiovascular event. She also has ISA on CPAP. We will retry again for zepound. Side effects explained to the patient. Goal [...] counseling General health concerns discussed with patient. I have rendered the services for this patient under direct supervision of Dr. Browne, who did not see the patient but was available upon request 01/21/2025 Cramp and spasm (ICD-10 - R25.2) Mrs. Paul is a 54-year-old lady with a history of hypertension, perimenopausal symptoms on Wellbutrin and obesity status post bariatric surgery here for Reason for hospital follow-up. Patient initially presented to the hospital for paraesophageal hernia repair however 2 days after she experiences abdominal pain persistent she went to the hospital againand she underwent redo paraesophageal hernia repair with Dr. Fung. Postop complicated with pleural effusion and constant abdominal spasming. Plan as follow: Paraesophageal repair: - Due to complication of inflammation, it was decided on loosening the crural sutures. She is currently back on PPI and has a follow-up with GI. Pleural effusion. Required thoracentesis in the hospital. She continues to experience mild cough and SOB. Lungs are CTAB. SHe is able to speak full sentences. HR and O2 are WNL, we will get an Xray of the chest to ensure resolution. Cramp/spasm and abdominal pain. We will refill oxycodone and methocarbamol for abdominal spasm. She was given nerve block at the hospital by pain management, however no improvement. No further imaging was performed to delineate the cause of abdominal spasm. We will get an MRI of the abdomen and patient is to follow with GI. Hospital discharge note has been reviewed with the patient. Medication list updated. General concerns have been discussed I have rendered the services for this patient under direct supervision of Dr. Browne, who did not see the patient but was available upon request 06/10/2025 ISA on CPAP (ICD-10 - G47.33) Mrs. Paul is a 54-year-old lady with a history of hypertension, perimenopausal symptoms on Wellbutrin and obesity status post bariatric surgery here for Follow-up. Plan as follows Hypertension. Blood pressure is elevated in the office today, she has been none consistent with taking carvedilol, she is also on hydrochlorothiazide 25 mg. Lisinopril was discontinued as she developed angioedema. For now I will have patient resume back on carvedilol 20 mg daily and hydrochlorothiazide 25 mg. We will follow up in 3 weeks if no improvement then we can consider adding hydralazine into the regimen. She only had one episode of loss of consciousness, however that was primarily attributed to possible dehydration and given hot weather, she has been taking carvedilol every now and then without any symptoms, thus she is cleared to be on this medication again daily. She had blood work done through a program for insurance, she will records of comp Hyperlipidemia. She is on pravastatin 20 mg at bedtime. Check lipid panel ISA. She is currently not on CPAP due to dry skin secondary to using the mask, I have recommended to do a trial of nasal cannula instead. Complications of ISA discussed History of pleural effusion and pneumothorax which were the secondary to surgery that was done back in January 2025. Assurance is given as her vital signs are within normal limit, oxygen and heart rate are within normal limits, she is able to speak in full sentences she is not in distress, her lungs sound clear to auscultation bilateral, denies any symptoms of dyspnea on exertion or coughing or shortness of breath. She experiences pain that tends to happen at bedtime. I have assured patient that this pain is more so musculoskeletal compared to pulmonary symptoms however she is adamant about getting a chest x-ray to ensure that pneumothorax has resolved. ALIDA. Mood is stable on current regimen. Continue Wellbutrin 300 mg and hydroxyzine as needed. GERD. She does take omeprazole 20mg as needed Seasonal allergies. stable she takes Claritin as needed Obesity,/need for surveillance. She currently enrolled through a program through her health insurance, she will be started on Ozempic 0.25mg. Diet modification is also discussed along with regimental exercises. General concerns have been discussed I have rendered the services for this patient under direct supervision of Dr. Browne, who did not see the patient but was available upon request 07/02/2025 Gastro-esophageal reflux disease without esophagitis (ICD-10 - K21.9) Mrs. Paul is a 54-year-old lady with a history of hypertension, perimenopausal symptoms on Wellbutrin and obesity status post bariatric surgery here for Follow-up. Plan as follows Hypertension. Blood pressure is elevated in the office today, she has been none consistent with taking carvedilol, she is also on hydrochlorothiazide 25 mg. She will resume back on carvedilol 20 mg daily Instead of carvedilol 6.25 twice a day and hydrochlorothiazide 25 mg. We will follow up in 4 weeks if no improvement then we can consider adding hydralazine into the regimen. She only had one episode of loss of consciousness, however that was primarily attributed to possible dehydration and given hot weather, she has been taking carvedilol every now and then without any symptoms, thus she is cleared to be on this medication again daily. She had blood work done through a program for insurance, she will records of comp Hyperlipidemia. Noncompliant with pravastatin 20 mg, Advised on compliance with diet modification. Check lipid panel In 4-6 weeks. ISA. She is currently not on CPAP due to dry skin secondary to using the mask, I have recommended to do a trial of nasal cannula instead. Complications of ISA discussed ALIDA. Mood is stable on current regimen. Continue Wellbutrin 300 mg and hydroxyzine as needed. GERD. She does take omeprazole 20mg as needed Seasonal allergies. stable she takes Claritin as needed Obesity,/need for surveillance. She currently enrolled through a program through her health insurance, she As on Ozempic 0.25mg. Lost 9 pounds since her last visit. Diet modification is also discussed along with regimental exercises. General concerns have been discussed I have rendered the services for this patient under direct supervision of Dr. Browne, who did not see the patient but was available upon request 08/11/2025 Gastro-esophageal reflux disease without esophagitis (ICD-10 - K21.9) Mrs. Paul is a 54-year-old lady with a history of hypertension, perimenopausal symptoms on Wellbutrin and obesity status post bariatric surgery here for Follow-up. Plan as follows Hypertension. Blood pressure especially diastolic blood pressure running high. We switch her to carvedilol 12.5 mg 1 tablet twice a day and continue HCTZ 25 mg daily. She only had one episode of loss of consciousness, however that was primarily attributed to possible dehydration and given hot weather, she has been taking carvedilol every now and then without any symptoms, thus she is cleared to be on this medication again daily. She had blood work done through a program for insurance, she will records of comp Hyperlipidemia. Noncompliant with pravastatin 20 mg, Advised on compliance with diet modification. Check lipid panel In 4-6 weeks. ISA. She is currently not on CPAP due to dry skin secondary to using the mask, I have recommended to do a trial of nasal cannula instead. Complications of ISA discussed ALIDA. Mood is stable on current regimen. Continue Wellbutrin 300 mg and hydroxyzine as needed. GERD. She does take omeprazole 20mg as needed Seasonal allergies. stable she takes Claritin as needed Obesity,/need for surveillance. She currently enrolled through a program through her health insurance, she As on Ozempic 0.25mg. Lost 9 pounds since her last visit. Diet modification is also discussed along with regimental exercises. General concerns have been discussed 07/02/2025 Generalized anxiety disorder (ICD-10 - F41.1) Mrs. Paul is a 54-year-old lady with a history of hypertension, perimenopausal symptoms on Wellbutrin and obesity status post bariatric surgery here for Follow-up. Plan as follows Hypertension. Blood pressure is elevated in the office today, she has been none consistent with taking carvedilol, she is also on hydrochlorothiazide 25 mg. She will resume back on carvedilol 20 mg daily Instead of carvedilol 6.25 twice a day and hydrochlorothiazide 25 mg. We will follow up in 4 weeks if no improvement then we can consider adding hydralazine into the regimen. She only had one episode of loss of consciousness, however that was primarily attributed to possible dehydration and given hot weather, she has been taking carvedilol every now and then without any symptoms, thus she is cleared to be on this medication again daily. She had blood work done through a program for insurance, she will records of comp Hyperlipidemia. Noncompliant with pravastatin 20 mg, Advised on compliance with diet modification. Check lipid panel In 4-6 weeks. ISA. She is currently not on CPAP due to dry skin secondary to using the mask, I have recommended to do a trial of nasal cannula instead. Complications of ISA discussed ALIDA. Mood is stable on current regimen. Continue Wellbutrin 300 mg and hydroxyzine as needed. GERD. She does take omeprazole 20mg as needed Seasonal allergies. stable she takes Claritin as needed Obesity,/need for surveillance. She currently enrolled through a program through her health insurance, she As on Ozempic 0.25mg. Lost 9 pounds since her last visit. Diet modification is also discussed along with regimental exercises. General concerns have been discussed I have rendered the services for this patient under direct supervision of Dr. Browne, who did not see the patient but was available upon request 08/11/2025 Generalized anxiety disorder (ICD-10 - F41.1) Mrs. Paul is a 54-year-old lady with a history of hypertension, perimenopausal symptoms on Wellbutrin and obesity status post bariatric surgery here for Follow-up. Plan as follows Hypertension. Blood pressure especially diastolic blood pressure running high. We switch her to carvedilol 12.5 mg 1 tablet twice a day and continue HCTZ 25 mg daily. She only had one episode of loss of consciousness, however that was primarily attributed to possible dehydration and given hot weather, she has been taking carvedilol every now and then without any symptoms, thus she is cleared to be on this medication again daily. She had blood work done through a program for insurance, she will records of comp Hyperlipidemia. Noncompliant with pravastatin 20 mg, Advised on compliance with diet modification. Check lipid panel In 4-6 weeks. ISA. She is currently not on CPAP due to dry skin secondary to using the mask, I have recommended to do a trial of nasal cannula instead. Complications of ISA discussed ALIDA. Mood is stable on current regimen. Continue Wellbutrin 300 mg and hydroxyzine as needed. GERD. She does take omeprazole 20mg as needed Seasonal allergies. stable she takes Claritin as needed Obesity,/need for surveillance. She currently enrolled through a program through her health insurance, she As on Ozempic 0.25mg. Lost 9 pounds since her last visit. Diet modification is also discussed along with regimental exercises. General concerns have been discussed 10/29/2024 ISA on CPAP (ICD-10 - G47.33) Evelyn is 53 years old with hypertension, acid reflux, hyperlipidemia, generalized anxiety disorder, status post bariatric surgery is here for follow-up for weight management. We saw her in June. She gained a pound since last visit. Plan is as follows: Hypertension. - Her blood pressure was running high today. Coreg has been added to the regimen. Advised low calorie foods and cut back on the salt and increase aerobic activities and monitor blood pressure at home. Check in two weeks Hyperlipidemia. - Previous lipid panel was abnormal, She is currently on Pravastatin 20mg. Check lipid panel. ISA on CPAP. She has been diagnosed recently. Dietary recommendations. Food recall was done today and patient advised to be on low calorie, low carbohydrate diet. Restrict calories to less than 1500 kcal in 24 hours. Low glycemic index foods and encouraged. Meal replacements were recommended. Advised to use [id number] multivitamins and vitamin D. Advised to use calorie counter and adhere to portion control. Monthly goal is to lose 4-6 pounds Pharmacotherapy. She is not taking Wegovy at this point. Naltrexone causes dizziness. continue Wellbutrin 300 MG once a day. She is not a good candidate for phentermine given HTN. She will benefit the most from GLP-1, especially Zepbound. She has metabolic syndrome of HTN, HLD which increases the risk for cardiovascular event. She also has ISA on CPAP. We will retry again for zepound. Side effects explained to the patient. Goal [...] counseling General health concerns discussed with patient. I have rendered the services for this patient under direct supervision of Dr. Browne, who did not see the patient but was available upon request 06/10/2025 Gastro-esophageal reflux disease without esophagitis (ICD-10 - K21.9) Mrs. Paul is a 54-year-old lady with a history of hypertension, perimenopausal symptoms on Wellbutrin and obesity status post bariatric surgery here for Follow-up. Plan as follows Hypertension. Blood pressure is elevated in the office today, she has been none consistent with taking carvedilol, she is also on hydrochlorothiazide 25 mg. Lisinopril was discontinued as she developed angioedema. For now I will have patient resume back on carvedilol 20 mg daily and hydrochlorothiazide 25 mg. We will follow up in 3 weeks if no improvement then we can consider adding hydralazine into the regimen. She only had one episode of loss of consciousness, however that was primarily attributed to possible dehydration and given hot weather, she has been taking carvedilol every now and then without any symptoms, thus she is cleared to be on this medication again daily. She had blood work done through a program for insurance, she will records of comp Hyperlipidemia. She is on pravastatin 20 mg at bedtime. Check lipid panel ISA. She is currently not on CPAP due to dry skin secondary to using the mask, I have recommended to do a trial of nasal cannula instead. Complications of ISA discussed History of pleural effusion and pneumothorax which were the secondary to surgery that was done back in January 2025. Assurance is given as her vital signs are within normal limit, oxygen and heart rate are within normal limits, she is able to speak in full sentences she is not in distress, her lungs sound clear to auscultation bilateral, denies any symptoms of dyspnea on exertion or coughing or shortness of breath. She experiences pain that tends to happen at bedtime. I have assured patient that this pain is more so musculoskeletal compared to pulmonary symptoms however she is adamant about getting a chest x-ray to ensure that pneumothorax has resolved. ALIDA. Mood is stable on current regimen. Continue Wellbutrin 300 mg and hydroxyzine as needed. GERD. She does take omeprazole 20mg as needed Seasonal allergies. stable she takes Claritin as needed Obesity,/need for surveillance. She currently enrolled through a program through her health insurance, she will be started on Ozempic 0.25mg. Diet modification is also discussed along with regimental exercises. General concerns have been discussed I have rendered the services for this patient under direct supervision of Dr. Browne, who did not see the patient but was available upon request 06/10/2025 Generalized anxiety disorder (ICD-10 - F41.1) Mrs. Paul is a 54-year-old lady with a history of hypertension, perimenopausal symptoms on Wellbutrin and obesity status post bariatric surgery here for Follow-up. Plan as follows Hypertension. Blood pressure is elevated in the office today, she has been none consistent with taking carvedilol, she is also on hydrochlorothiazide 25 mg. Lisinopril was discontinued as she developed angioedema. For now I will have patient resume back on carvedilol 20 mg daily and hydrochlorothiazide 25 mg. We will follow up in 3 weeks if no improvement then we can consider adding hydralazine into the regimen. She only had one episode of loss of consciousness, however that was primarily attributed to possible dehydration and given hot weather, she has been taking carvedilol every now and then without any symptoms, thus she is cleared to be on this medication again daily. She had blood work done through a program for insurance, she will records of comp Hyperlipidemia. She is on pravastatin 20 mg at bedtime. Check lipid panel ISA. She is currently not on CPAP due to dry skin secondary to using the mask, I have recommended to do a trial of nasal cannula instead. Complications of ISA discussed History of pleural effusion and pneumothorax which were the secondary to surgery that was done back in January 2025. Assurance is given as her vital signs are within normal limit, oxygen and heart rate are within normal limits, she is able to speak in full sentences she is not in distress, her lungs sound clear to auscultation bilateral, denies any symptoms of dyspnea on exertion or coughing or shortness of breath. She experiences pain that tends to happen at bedtime. I have assured patient that this pain is more so musculoskeletal compared to pulmonary symptoms however she is adamant about getting a chest x-ray to ensure that pneumothorax has resolved. ALIDA. Mood is stable on current regimen. Continue Wellbutrin 300 mg and hydroxyzine as needed. GERD. She does take omeprazole 20mg as needed Seasonal allergies. stable she takes Claritin as needed Obesity,/need for surveillance. She currently enrolled through a program through her health insurance, she will be started on Ozempic 0.25mg. Diet modification is also discussed along with regimental exercises. General concerns have been discussed I have rendered the services for this patient under direct supervision of Dr. Browne, who did not see the patient but was available upon request 08/11/2025 Other obesity due to excess calories (ICD-10 - E66.09) Mrs. Paul is a 54-year-old lady with a history of hypertension, perimenopausal symptoms on Wellbutrin and obesity status post bariatric surgery here for Follow-up. Plan as follows Hypertension. Blood pressure especially diastolic blood pressure running high. We switch her to carvedilol 12.5 mg 1 tablet twice a day and continue HCTZ 25 mg daily. She only had one episode of loss of consciousness, however that was primarily attributed to possible dehydration and given hot weather, she has been taking carvedilol every now and then without any symptoms, thus she is cleared to be on this medication again daily. She had blood work done through a program for insurance, she will records of comp Hyperlipidemia. Noncompliant with pravastatin 20 mg, Advised on compliance with diet modification. Check lipid panel In 4-6 weeks. ISA. She is currently not on CPAP due to dry skin secondary to using the mask, I have recommended to do a trial of nasal cannula instead. Complications of ISA discussed ALIDA. Mood is stable on current regimen. Continue Wellbutrin 300 mg and hydroxyzine as needed. GERD. She does take omeprazole 20mg as needed Seasonal allergies. stable she takes Claritin as needed Obesity,/need for surveillance. She currently enrolled through a program through her health insurance, she As on Ozempic 0.25mg. Lost 9 pounds since her last visit. Diet modification is also discussed along with regimental exercises. General concerns have been discussed 07/02/2025 Other obesity due to excess calories (ICD-10 - E66.09) Mrs. Paul is a 54-year-old lady with a history of hypertension, perimenopausal symptoms on Wellbutrin and obesity status post bariatric surgery here for Follow-up. Plan as follows Hypertension. Blood pressure is elevated in the office today, she has been none consistent with taking carvedilol, she is also on hydrochlorothiazide 25 mg. She will resume back on carvedilol 20 mg daily Instead of carvedilol 6.25 twice a day and hydrochlorothiazide 25 mg. We will follow up in 4 weeks if no improvement then we can consider adding hydralazine into the regimen. She only had one episode of loss of consciousness, however that was primarily attributed to possible dehydration and given hot weather, she has been taking carvedilol every now and then without any symptoms, thus she is cleared to be on this medication again daily. She had blood work done through a program for insurance, she will records of comp Hyperlipidemia. Noncompliant with pravastatin 20 mg, Advised on compliance with diet modification. Check lipid panel In 4-6 weeks. ISA. She is currently not on CPAP due to dry skin secondary to using the mask, I have recommended to do a trial of nasal cannula instead. Complications of ISA discussed ALIDA. Mood is stable on current regimen. Continue Wellbutrin 300 mg and hydroxyzine as needed. GERD. She does take omeprazole 20mg as needed Seasonal allergies. stable she takes Claritin as needed Obesity,/need for surveillance. She currently enrolled through a program through her health insurance, she As on Ozempic 0.25mg. Lost 9 pounds since her last visit. Diet modification is also discussed along with regimental exercises. General concerns have been discussed I have rendered the services for this patient under direct supervision of Dr. Browne, who did not see the patient but was available upon request 06/10/2025 Other obesity due to excess calories (ICD-10 - E66.09) Mrs. Paul is a 54-year-old lady with a history of hypertension, perimenopausal symptoms on Wellbutrin and obesity status post bariatric surgery here for Follow-up. Plan as follows Hypertension. Blood pressure is elevated in the office today, she has been none consistent with taking carvedilol, she is also on hydrochlorothiazide 25 mg. Lisinopril was discontinued as she developed angioedema. For now I will have patient resume back on carvedilol 20 mg daily and hydrochlorothiazide 25 mg. We will follow up in 3 weeks if no improvement then we can consider adding hydralazine into the regimen. She only had one episode of loss of consciousness, however that was primarily attributed to possible dehydration and given hot weather, she has been taking carvedilol every now and then without any symptoms, thus she is cleared to be on this medication again daily. She had blood work done through a program for insurance, she will records of comp Hyperlipidemia. She is on pravastatin 20 mg at bedtime. Check lipid panel ISA. She is currently not on CPAP due to dry skin secondary to using the mask, I have recommended to do a trial of nasal cannula instead. Complications of ISA discussed History of pleural effusion and pneumothorax which were the secondary to surgery that was done back in January 2025. Assurance is given as her vital signs are within normal limit, oxygen and heart rate are within normal limits, she is able to speak in full sentences she is not in distress, her lungs sound clear to auscultation bilateral, denies any symptoms of dyspnea on exertion or coughing or shortness of breath. She experiences pain that tends to happen at bedtime. I have assured patient that this pain is more so musculoskeletal compared to pulmonary symptoms however she is adamant about getting a chest x-ray to ensure that pneumothorax has resolved. ALIDA. Mood is stable on current regimen. Continue Wellbutrin 300 mg and hydroxyzine as needed. GERD. She does take omeprazole 20mg as needed Seasonal allergies. stable she takes Claritin as needed Obesity,/need for surveillance. She currently enrolled through a program through her health insurance, she will be started on Ozempic 0.25mg. Diet modification is also discussed along with regimental exercises. General concerns have been discussed I have rendered the services for this patient under direct supervision of Dr. Browne, who did not see the patient but was available upon request Plan Of Treatment Pending Test Test Name Order Date Echocardiogram 03/13/2024 CT ABDOMEN W CONTRAST 02/18/2025 MRI : Abdomen without Contrast MRI : Abdomen with and without Contrast 01/30/2025 Xray: Chest-Standard Frontal & Lat 01/24 Xray: Chest-Standard Frontal & Lat 01/21 Xray: Chest-Standard Frontal & Lat 06/10 QUANTIFERON TB GOLD PLUS 04/20/2022 Lipid Panel-[id number] 10/29/2024 Future Test Test Name Order Date Lipid Panel-[id number] 07/30/2025 Next Appt Details Provider Name:ARNAUD BROWNE , 09/22/2025 01:45:00 PM, [address] [place] [address], [phone], Provider Name:Mallika tidwell, 12/03/2025 10:45:00 AM, [address] [place] [address], [phone], Insurance Providers Payer Name Payer Address Payer Phone Subscriber Number Group Number Insured Name Patient Relationship to Insured Coverage Start Date Coverage End Date [facility] [id number] [place] [address] [id number] Evelyn Paul Self - patient is the insured [facility] [id number] [place] [address] [id number] Evelyn Paul Self - patient is the insured Medical (General) History Medical History History ICD Code Hypertension Perimenopausal symptoms on Wellbutrin HLD ISA on CPAP Surgical History Surgery Date(Month/Year) 2005 gastric sleeve, Dr. Price, was 226 lbs a nd lost 50-60 lbs 2015 cholecystectomyNevaeh 2004
--- OUTSIDE RECORDS SUMMARY | 2025-08-27 13:38 | XMS_ITS | Clinical Summary ---
Author Organization [employer] Address [address] [place] [address] Care Team Providers Care Licensed Mental Health Professional Name Role Phone Unavailable Primary Care Provider Unavailabl e Immunizations Immunization Administration Dates Next Due Influenza injectable quadriv [...] Panel 1970 SDOH Screening 1970 Sigmoidoscopy 1970 Disability Screening 1970 Alcohol/Substance Use Screening 1982 Tobacco Screening 1982 Hepatitis C Screening 1988 Hepatitis B Vaccines (1 of 3 - 19+ 3-dose series) 1989 Pap Smear 1991 Cervical Cancer Screening 2000 HPV/Cotest 2000 Mammogram 2010 Pneumococcal Vaccine: 50+ Years (1 of 1 - PCV) 2020 Zoster Vaccines (1 of 2) 2020 DTaP/Tdap/Td Vaccines (2 - Td or Tdap) 01/24/2024 01/23/2014 COVID-19 Vaccine (3 - 2024-26 season) 2025 01/22/2021, 01/02/2021 Influenza Vaccine (#1) 2025 , 06/29/2020, 06/10/2019, Additional history exists RSV Patients [...] patient's age to complete this topic Meningococcal B Vaccine Aged Out No l onger eligible based on patient's age to complete [...]
--- OUTSIDE RECORDS SUMMARY | 2025-08-27 13:38 | XMS_ITS | Clinical Summary ---
Author Organization [employer] [facility] Address [address] [place] [address] Care Team Providers Care Digital Printer Operator Name Role Phone Blaire Oden MD Primary Care Pro vider Social History Tobacco Use Types Packs/Day Years Used Date Smoking Tobacco: Never Assessed Comments Unknown Sex and Gender Information Value Date Recorded Sex Assigned at Not on file Legal Sex Female 2:48 PM EDT Gender Identity Not on file Sexual Orientation Not on file Plan of Treatment Not on file Medical Devices Not on file Insurance [facility] Care Teams Digital Printer Operator Relationship Specialty Start Date End Date Blaire Oden MD [address] [place] [id number] PCP - Setter Machine 05/21/20
--- OUTSIDE RECORDS SUMMARY | 2025-08-27 13:38 | XMS_ITS ---
Author Name [facility] Organization Unknown Results Test Name/Text Value Interpretation Date Range Source TROPONIN I HIGH SENSITIVE 5.4 ng/L Normal 02/23/2024 0 - 54 [facility] SODIUM 141.0 mmol/L Normal 02/23/2024 136 - 145 [facility] MH A/G RATIO 1.3 g/dL Normal 02/23/2024 [facility] CO2 27.0 mmol/L Normal 02/23/2024 21 - 32 [facility] H BUN 19.0 mg/dL Above high normal 02/23/2024 7 - 18 [facility] PROTEIN, TOTAL 7.4 g/dL Normal 02/23/2024 6.4 - 8.2 [facility] AST (SGOT) 18.0 U/L Normal 02/23/2024 15 - 37 [facility] CHLORIDE 109.0 mmol/L Above high normal 02/23/2024 98 - 107 [facility] BILIRUBIN,TOTAL 0.5 mg/dL Normal 02/23/2024 0.2 - 1 [facility] POTASSIUM SERUM 3.8 mmol/L Normal 02/23/2024 3.5 - 5.1 CT [facility] ALKALINE PHOSPHATASE 81.0 U/L Normal 02/23/2024 50 - 136 [facility] CREATININE 0.98 mg/dL Normal 02/23/2024 0.55 - 1.3 [facility] MH ALT (SGPT) 24.0 U/L Normal 02/23/2024 12 - 78 [facility] GLUCOSE 105.0 mg/dL Above high normal 02/23/2024 74 - 100 [facility] ALBUMIN 4.2 g/dL Normal 02/23/2024 3.4 - 5 [facility] GLOBULIN 3.2 g/dL Normal 02/23/2024 2.4 - 4.2 [facility] BUN/CREAT.RATIO 19.4 Normal 02/23/2024 [facility] PATIENT FASTING? UNKNOWN Normal 02/23/2024 [facility] GFRE 63.0 Normal 02/23/2024 60 - [facility] LIPASE 35.0 U/L Normal 02/23/2024 13 - 75 [facility] TROPONIN I HIGH SENSITIVE 3.8 ng/L Normal 02/23/2024 0 - 54 [facility] MONOCYTES 6.0 % Normal 02/23/2024 0 - 12 [facility] ABSOLUTE BASO 0.0 K/uL Normal 02/23/2024 0 - 0.2 [facility] MMH ABSOLUTE NUCLEATED RBC 0.0 K/uL Normal 02/23/2024 0 - 0. 012 [facility] IMMATURE GRANULOCYTES 0.0 % Normal 02/23/2024 0 - 0.4 5 [facility] HGB 13.9 g/dL Normal 02/23/2024 12.1 - 15.7 [facility] H RBC 4.9 M/uL Normal 02/23/2024 4 - 5.4 [facility] WBC 7.1 K/uL Normal 02/23/2024 3.7 - 10.3 [facility] EOSINOPHILS 3.0 % Normal 02/23/2024 0 - 6 [facility] H GRANULOCYTES 62.0 % Normal 02/23/2024 23 - 78 [facility] PLATELET COUNT 312.0 K/uL Normal 02/23/2024 150 - 480 [facility] HCT 42.2 % Normal 02/23/2024 36 - 46 [facility] MCH 28.0 PG Normal 02/23/2024 27 - 34 [facility] RDW 12.7 % Normal 02/23/2024 11.1 - 13.3 [facility] H BASOPHILS 1.0 % Normal 02/23/2024 0 - 2 [facility] ABSOLUTE LYMPHS 2.0 K/uL Normal 02/23/2024 1.5 - 4.9 CTP MM ABSOLUTE MONOS 0.4 K/uL Normal 02/23/2024 0.2 - 1.5 [facility] MPV 10.0 fL Normal 02/23/2024 8 - 12 [facility] ABSOLUTE EOS 0.2 K/uL Normal 02/23/2024 0 - 0.7 [facility] MCV 86.0 fL Normal 02/23/2024 83 - 102 [facility] LYMPHS 28.0 % Normal 02/23/2024 16 - 50 [facility] MCHC 32.9 g/dL Normal 02/23/2024 31 - 36 [facility] ABSOLUTE IMMATURE GRANULOCYTES 0.0 K/uL Normal 02/23/2024 0 - 0.3 [facility] ABSOLUTE GRANULOCYTES 4.4 K/uL Normal 02/23/2024 2.2 - 7 .3 [facility] NUCLEATED RBC 0.0 % Normal 02/23/2024 0 - 0.2 [facility] History of Medication Use Medication Directions Dispensed Refills Start Date End Date Status acetaminophen 325 mg tablet TAKE 3 TABLETS BY MOUTH EVERY 6 HOURS FOR 5 DAYS 025 completed bupropion HCl XL 150 mg 24 hr tablet, extended release TAKE 1 TABLET BY MOUTH EVERY DAY IN THE MORNING FOR 30 DAYS 025 completed carvedilol 3.125 mg tablet TAKE 1 TABLET BY MOUTH TWICE A DAY WITH FOOD FOR 30 DAYS 025 completed carvedilol 6.25 mg tablet TAKE 1 TABLET BY MOUTH TWICE A DAY WITH FOOD FOR 30 DAYS 025 completed cephalexin 250 mg capsule TAKE 1 CAPSULE BY MOUTH FOUR TIMES A DAY START AFTER SURGERY. TAKE FOR 5 DAYS. 025 completed diazepam 5 mg tablet TAKE 1 TABLET BY MOUTH THREE TIMES A DAY NEEDED FOR MUSCLE SPASM FOR 5 DAYS 025 completed dicyclomine 10 mg capsule TAKE 1 CAPSULE BY MOUTH 3 TIMES A DAY,X30 DAYS 30 TO 60 MINUTES BEFORE MEALS 025 completed docusate sodium 100 mg capsule TAKE 1 CAPSULE BY MOUTH TWICE A DAY 025 completed famotidine 20 mg tablet TAKE 1 TABLET BY MOUTH TWICE A DAY FOR 7 DAYS 025 completed ibuprofen 800 mg tablet 1 TABLET BY MOUT H 3 TIMES A DAY,X5 DAYS 025 completed lisinopril 40 mg tablet TAKE 1 TABLET BY MOUTH EVERY DAY 025 completed methocarbamol 750 mg tablet TAKE 1 TABLET BY MOUTH EVERY 8 HOURS 025 completed naltrexone 50 mg tablet TAKE 1 TABLET BY MOUTH EVERY DAY FOR 30 DAYS 025 completed ondansetron HCl 4 mg tablet TAKE 1 TABLET BY MOUTH EVERY 8 HOURS,X4 DAYS 025 completed oxycodone 5 mg capsule TAKE 1 CAPSULE BY MOUTH EVERY 6 HOURS NEEDED FOR 15 DAYS 025 completed oxycodone 5 mg tablet 1 TABLET BY MOUTH EVERY 6 HOURS,X3 DAYS NEEDED FOR MODERATE PAIN 025 completed pravastatin 20 mg tablet TAKE 1 TABLET BY MOUTH EVERY DAY FOR 30 DAYS 025 completed prednisone 20 mg tablet TAKE 2 TABLETS B Y MOUTH EVERY DAY FOR 5 DAYS 025 completed bupropion HCl XL 300 mg 24 hr tablet, extended release TAKE 1 TABLET BY MOUTH EVERY DAY IN THE MORNING FOR 90 DAYS active carvedilol phosphate ER 20 mg capsule,ext.[id number] multiphase TAKE 1 CAPSULE BY MOUTH EVERY DAY WITH FOOD. active cetirizine 10 mg tablet TAKE 1 TABLET BY MOUTH EVERY DAY FOR 14 DAYS active epinephrine 0.3 mg/0.3 mL injection, auto-injector INJECT 1 PEN INTRAMUSCULARLY ONCE. MAY REPEAT IF NECESSARY USE FOR SEVERE ALLERGIC REACTION active estradiol 0.01% (0.1 mg/gram) vaginal cream INSERT 1 GRAM VAGINALLY TWICE PER WEEK AT BEDTIME active hydrochlorothiazide 25 mg tablet TAKE 1 TABLET BY MOUTH EVERY DAY IN THE MORNING FOR 90 DAYS active pantoprazole 20 mg tablet,delayed release TAKE 1 TABLET BY MOUTH EVERY DAY FOR 30 DAYS active rosuvastatin 5 mg tablet TAKE 1 TABLET BY MOUTH EVERY DAY FOR 30 DAYS active Allergies Allergen Reaction Severity Comment Documented Date Source Statu s LISINOPRIL [facility] Problems Problem Status Onset Date Problem Type Date of Resoluti on Source Body mass index 30+ - obesity active 2025-05-20 ProblemAct [facility] Gastroesophageal reflux disease active 2025-05-20 ProblemAct [facility] Hormone increase active 2025-05-20 ProblemAct C [facility] Mixed hyperlipidemia active 2025-05-20 ProblemAct [facility] Essential hypertension active 2025-05-20 ProblemAct [facility] Obstructive sleep apnea syndrome active 2025-05-20 ProblemAct [facility] Encounters Encounter Type Encounter Reason Primary Diagnosis Location Date Ambulatory [facility] 05/13/2025 Ambulatory [facility] 05/09/2025 [facility] 05/06/2025 Ambulatory [facility] 05/02/2025 Ambulatory [facility] 04/29/2025 Ambulatory [facility] 04/25/2025 Ambulatory [facility] 04/18/2025 Ambulatory [facility] 04/18/2025 Ambulatory [facility] 04/18/2025 Ambulatory [facility] 04/18/2025 Ambulatory [facility] 04/18/2025 Ambulatory [facility] 04/17/2025 Ambulatory [facility] 04/17/2025 Ambulatory [facility] 04[facility]17/2025 Ambulatory [facility] 04/17/2025 Ambulatory [facility] 04/17/2025 Ambulatory [facility] 04/17/2025 Ambulatory [facility] 01/20/2025 [facility]ulatory [facility] 07/09/2024 Emergency CHEST PAIN CHEST PAIN [facility] 02/22/2024 Care Team Organization Name Specialty Phone Email Start Date End Da te [facility]T-[facility] 08/23/2025 [facility] NO PCP Primary Care 04/23/2025 [facility] 04/20/2025 [facility] Pl[facility]er (ECMP) [facility] Primary Care 01/08/2025 [facility] 01/04/2025 Office of the [facility] ([facility]) 07/26/2024 [facility] Primary Care 06/20/2024 [facility] directory,Not Primary Care 02/23/2024 [facility] Not directory Primary Care 02/23/2024 [facility] Primary Care 09/19/2022
== END 2025-08-27 11:42 | disposition home or self-care (01) ==
LOC: HO.HSMS 10:42
PROVIDERS: PCP Hospitalist; Visit Provider Nurse Practitioner Family
DX: G43.109 Migraine with aura, not intractable, without status migrainosus (principal); G47.33 Obstructive sleep apnea (adult) (pediatric); R06.83 Snoring; G47.19 Other hypersomnia
CPT/HCPCS: 99214

== ENCOUNTER 2025-09-09 12:58 | Outpatient (AMB) | payer BC, SELFPAY ==
--- NOTE | 2025-09-09 13:01 | MHC.OFFVIS ---
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: No Accompanied by: Self / Same As Patient Allergies lisinopril Allergy (Unknown, Verified 09/09/25 13:05) Swelling Medication List - Last Reconciled 09/09/25 by Armando Skelton NP bupropion HCl XL 300 mg PO QAM carvedilol phosphate ER 12.5 mg PO BID cetirizine (Zyrtec) 10 mg PO DAILY PRN hydrochlorothiazide 25 mg PO DAILY multivitamin 1 tab PO DAILY pantoprazole 20 mg PO DAILY PRN rosuvastatin 5 mg PO DAILY sumatriptan succinate 50 - 100 mg orally at onset of headache, may repeat in 2 hrs PRN; max 2 tabs per day or 4 tabs/week (may take with Ibuprofen) 30 days HPI Comments Details: This is a 54-year-old female patient coming in for a follow-up visit. Patient was seen in the office previously for chest discomfort and palpitations for which patient underwent a coronary CTA and a Holter study. Today, patient is reporting feeling well overall without any cardiac symptoms of exertional chest pain, shortness of breath, dizziness, orthopnea, or PND, leg edema, presyncope or syncope. Patient does report occasional palpitations however has improved significantly from the last time we saw her. Patient is reporting compliance with all her medications. [facility] Medical History SOB (shortness of breath) on exertion Pre-operative cardiovascular examination Chest pain on exertion Palpitation Essential hypertension Surgical History History of hernia surgery (~12/2024) Hx of cholecystectomy Family History Father Diabetes COPD (chronic obstructive pulmonary disease) Personal history of alcoholism Heart disease Mother Hypertension Brother Hypertension Social History Alcohol intake: current Alcohol intake frequency: a few times a week Patient Tobacco Use Status: Never used Tobacco Review of Systems Const Denies daytime sleepiness, Denies difficulty sleeping, Denies snoring, Denies stops breathing during sleep and Denies weakness Card Denies chest pain, Denies rapid heart rate, Denies irregular heart rhythm, Denies claudication, Denies leg edema, Denies lightheadedness, Reports palpitations, Denies dyspnea, Denies dyspnea on exertion, Denies orthopnea, Denies paroxysmal nocturnal dyspnea and Denies slow heart rate Resp Denies cough, Denies dyspnea, Denies dyspnea on exertion and Denies snoring GI Reports no additional complaints, Denies hematochezia, Denies change in stool character and Denies dyspepsia Musc Denies abnormal gait, Denies muscle weakness and Denies numbness Neuro Denies abnormal gait, Denies numbness and Denies weakness Endo Reports palpitations Physical Exam Vital Signs: Last Vital Signs Pulse 86 09/09/25 13:02 BP 124/72 09/09/25 13:02 BMI result Body Mass Index 30.5 Const General: cooperative, healthy appearing, comfortable and no acute distress Orientation/consciousness: patient oriented x3 HEENT Head: Yes normal to inspection Neck Neck: Yes normal visual inspection, Yes trachea midline and Yes supple Chest Chest palpation & inspection: normal inspection of the chest Resp Effort & Inspection: normal respiratory effort Auscultation: clear to auscultation bilaterally, no crackles, no rales, no rhonchi and no wheezes Cardio Jugular venous distension: no JVD Palpation: normal PMI Rate: regular rate Rhythm: regular rhythm Heart sounds: S1 normal heart sound present, S2 normal heart sound present, no click, no gallops, no murmurs and no rubs Peripheral pulses: Peripheral pulses 2+ throughout GI Inspection: Yes normal to inspection Palpation (GI): Soft to palpation Auscultation: normal bowel sounds Skin General skin exam: no rashes or lesions noted Neuro General: patient oriented x3 Extrem General: Yes normal to inspection, No no pedal edema and No calf tenderness Psych Appearance: grossly normal Mental Status: mental status grossly normal Speech and movement: Normal speech and movement present Office Procedures EKG Details: EKG today showed normal sinus rhythm, rate 86 beats per minute, low-voltage QRS, [place], [place] [id number], Complete Assessment & Plan Assessment & Plan (1) Palpitation: Code(s): R00.2 - Palpitations Category: Medical (2) Essential hypertension: Code(s): I10 - Essential (primary) hypertension Category: Medical Plan 06/13/2024-echo showed a normal LVEF between 60-65%. Underwent a myocardial perfusion study as well that was normal. However given her ongoing symptoms she underwent a coronary CTA that showed no significant coronary artery disease on 08/28/2024. Due to reports of palpitations, patient underwent a Holter study on 10/01/2024 that showed underlying normal sinus rhythm with no significant arrhythmias. Blood pressure today is well-controlled. Continue current regimen with a blood pressure goal less than 130/80. Advised on low-salt diet. Continue statin therapy with an LDL goal less than 100. Advised on heart healthy diet, regular exercise, med compliance, and management of vascular risk factors. Follow up on an as-needed basis. In the interim, patient will call the office with any concerns or change in symptoms. This note was generated using voice recognition software. While every effort has been made to ensure accuracy and proper manufacturing production manager, there may be occasional errors that could affect the content or meaning of the described symptoms. Orders: Orders AMB EKG-In Office Today R00.2 - Palpitations Coding Level of Care Code Est Pt Level 3 (99804) Add On Problem Visit Only Diagnoses Palpitation R00.2 Essential hypertension I10 CPT Codes EKG - CPT: 69101-[id number], Complete ([id number]) Time Spent (min) 29 Comment Time spent in reviewing the chart, test results, assessment, counseling and documentation.
[2025-09-09 13:02] VITALS: BP 124/72; PULSE 86; BMI 30.5
--- OUTSIDE RECORDS SUMMARY | 2025-09-09 16:49 | XMS_ITS | Clinical Summary ---
Author Organization [employer] Address [address] [place] [address] Care Team Providers Care Clean Up Supervisor Name Role Phone Unavailable Primary Care Provider [...]
--- OUTSIDE RECORDS SUMMARY | 2025-09-09 16:49 | XMS_ITS | Clinical Summary ---
Author Organization [employer] [facility] lin Address [address] [place] [address] Care Team Providers Care Maintenance Man Name Role Phone Blaire Oden MD Primary [...] file Medical Devices Not on file Insurance [facility] Care Teams Maintenance Man Relationship Specialty Start Date End Date Blaire Oden MD [address] [place] [address] PCP - Lining Ironer 05/21/20
--- OUTSIDE RECORDS SUMMARY | 2025-09-09 16:50 | XMS_ITS | Clinical Summary ---
Author Organization [facility] Prior to 02/08/25 Address [address] [place] [address] Care Team Providers Care Document Clerk Name Role Phone Unavailable Primary Care Provider [...] this topic Evelyn Paul Personal/Family Self 1970 [address] [place] [address]
--- OUTSIDE RECORDS SUMMARY | 2025-09-09 16:50 | XMS_ITS | Patient Health Record ---
Author Organization [facility] Address [address] [place] [address] Care Team Providers Care Tiller Worker Name Role Phone HOLLIE LARES Primary Care Provider [phone] Mallika Dumont Unavailable [phone] Allergies Allergen (clinical drug ingredient) Drug/Non Drug Allergy documented on EMR Reaction Allergy Type Onset Date Status lisinopril Lisinopril Lip swelling Drug Allergy Ac tive amlodipine Amlodipine rash Drug Allergy Activ e Results Component Value Reference Range Notes Lipid Panel-[id number] Reviewed date:07/02/2025 10:09:40 AM Interpretation: Performing Lab:[facility], [address], Phone - [phone], Director - Zoya Notes/Report: Cholesterol, Total 255 100-199 mg/dL Triglycerides 123 0-149 mg/dL HDL Cholesterol 67 >39 mg/dL VLDL Cholesterol Savage 22 5-40 mg/dL LDL Chol Calc ([facility]) 166 0-99 mg/dL Albumin/Creatinine Ratio,Uri ne-[id number] Reviewed date:07/02/2025 10:09:51 AM Interpretation: Performing Lab:[facility], [address] [facility] [address], [place], Phone - [phone], Director - Zoya Notes/Report: Creatinine, Urine 360.9 [...] Notes Problem Obesity due to excess calories (793786015) Other obesity due to excess calories (E66.09) Active confirmed Problem Mixed hyperlipidemia (901282556) Mixed hyperlipidemia (E78.2) Active confirmed Problem Generalized anxiety disorder (18576463) Generalized anxiety disorder (F41.1) Active confirmed Problem Gastro-esophageal reflux disease without esophagitis (414414121) Gastro-esophageal reflux disease without esophagitis (K21.9) Active confirmed Problem History of bariatric surgical procedure (907473780) Bariatric surgery status (Z98.84) Active confirmed Problem Essential hypertension (12498010) Essential (primary) hypertension (I10) Active confirmed Problem Obstructive sleep apnea syndrome (95832616) ISA on CPAP (G47.33) Active confirmed Vital Signs Heart Rate 88 /min 08/11/2025 Temperature 96.2 degrees Fahrenheit 08/11/2025 Oximetry 99 % 08/11/2025 Blood pressure diastolic 86 mm Hg 08/11/2025 Height 65 in 08/11/2025 Blood pressure systolic 120 mm Hg 08/11/2025 Weight 180.4 lbs 08/11/2025 BMI 30.02 kg/m2 08/11/2025 Encounters Encounter Location Date Provider Diagnosis [address] [place] [address] 10/29/2024 Mallika Dumont Other obesity due to excess calories E66.09 ; Dietary counseling and surveillance Z71.3 ; Essential (primary) hypertension I10 ; Mixed hyperlipidemia E78.2 and ISA on CPAP G47.[address] [place] [address] 11/12/2024 Ghaugustoer Yaoloum Essential (primary) hypertension I10 [address] [place] [address] 12/03/2024 Ghadeer Yaoloum Essential (primary) hypertension I10 [address] [place] [address] 01/21/2025 [facility] Hospital discharge follow-up Z09 ; Pleural effusion, not elsewhere classified J90 ; Generalized abdominal pain R10.84 and Cramp and spasm R25.[address] [place] [address] 06/10/2025 Estherbert Yaocodyum Pleural effusion, no t elsewhere classified J90 ; Essential (primary) hypertension I10 ; Mixed hyperlipidemia E78.2 ; ISA on CPAP G47.33 ; Gastro-esophageal reflux disease without esophagitis K21.9 ; Generalized anxiety disorder F41.1 and Other obesity due to excess calories E66.[address] [place] [address] 07/02/2025 Estheraugustovinod Samayoaloum Essential (primary) hypertension I10 ; Mixed hyperlipidemia E78.2 ; ISA on CPAP G47.33 ; Gastro-esophageal reflux disease without esophagitis K21.9 ; Generalized anxiety disorder F41.1 and Other obesity due to excess calories E66.[address] [place] [address] 08/11/2025 ARNUAD BROWNE Essential (primary) hypertension I10 ; Mixed hyperlipidemia E78.2 ; ISA on CPAP G47.33 ; Gastro-esophageal reflux disease without esophagitis K21.9 ; Generalized anxiety disorder F41.1 and Other obesity due to excess calories E66.[address] [place] [address] 10/29/[facility] [place] [address] 01/22/[address] [place] [address] 01/22/[address] [place] [address] 01/22/[address] [place] [address] 01/22/2025 [facility] [place] [address] 01/23/2025 [facility] Dumont [address] [place] [address] 01/24/2025 Estheradevinod Barberum Pleural effusion, no t elsewhere classified J90 [address] [place] [address] 01/30/2025 Mallika Samayoaloum Diaphragmatic hernia without obstruction or gangrene K44.[address] [place] [address] 02/18/2025 Mallika Barberum Diaphragmatic hernia without obstruction or gangrene K44.[address] [place] [address] 02/18/2025 ARNAUD BROWNE Diaphragmatic hernia without obstruction [...] Meal replacements were recommended. Advised to use edsr-eej-wcqrznm multivitamins and vitamin D. Advised to use [...] Meal replacements were recommended. Advised to use slxt-oga-ctsycon multivitamins and vitamin D. Advised to use [...] Meal replacements were recommended. Advised to use mqky-eza-xdzkbts multivitamins and vitamin D. Advised to use [...] Meal replacements were recommended. Advised to use maup-sxn-lseqcgz multivitamins and vitamin D. Advised to use [...] exercises. General concerns have been discussed 08/11/2025 Generalized anxiety disorder (ICD-10 - F41.1) [...] patient but was available upon request 10/29/2024 ISA on CPAP (ICD-10 - G47.33) [...] Meal replacements were recommended. Advised to use dphw-ssi-btjkdnk multivitamins and vitamin D. Advised to use [...] patient but was available upon request 07/02/2025 Other obesity due to excess calories [...] regimental exercises. General concerns have been discussed 06/10/2025 Other obesity due to excess calories [...] Contrast 01/30/2025 Xray: Chest-Standard Frontal & Lat 06/10 Xray: Chest-Standard Frontal & Lat 01/24 Xray: Chest-Standard Frontal & Lat 01/21 QUANTIFERON TB GOLD PLUS 04/20/2022 Lipid Panel-[id number] 10/29/2024 Future Test Test Name Order Date Lipid Panel-[id number] 07/30/2025 Next Appt Details Provider Name:ARNAUD BROWNE , 09/22/2025 01:45:00 PM, [address] [place] [address], [phone], Provider Name:Mallika tidwell, 12/03/2025 10:45:00 AM, [address] [place] [address], [phone], Insurance Providers Payer Name Payer Address Payer Phone Subscriber Number Group Number Insured Name Patient Relationship to Insured Coverage Start Date Coverage End Date [facility] [address] [place] [address] [id number] Evelyn Paul Self - patient is the insured [facility] [id number] [place] [address] [id number] Evelyn Paul Self - patient is the insured Medical (General) History Medical History History ICD Code Hypertension Perimenopausal symptoms on Wellbutrin HLD ISA on CPAP Surgical History Surgery Date(Month/Year) 2005 gastric sleeve, Dr. Price, was 226 lbs a nd lost 50-60 lbs 2015 cholecystectomyNevaeh 2004
--- OUTSIDE RECORDS SUMMARY | 2025-09-09 16:50 | XMS_ITS | Data Portability ---
Author Organization [place] - [facility], Allergy Address [address] [address] Care Team Providers Care Baseball Player Name Role Phone ARNAUD BROWNE Primary Care Provider Assessment Encounter Date Assessment Date Assessment LastModified by Organization Details LastModified Time 05/28/2025 05/28/2025 Assessment: - Mild obstructive sleep apnea, AHI score of 8. - Itchy ears. Plan: The patient has mild obstructive sleep apnea as demonstrated by a home sleep study performed on 03/21/2024. She has difficulty tolerating CPAP therapy due to discomfort, drooling, and rashes. I discussed the option of trying an oral appliance, such as a lhsa-vkl-mfkx device, which can be purchased over the counter or custom-made by a dentist. These devices work by advancing the mandible slightly forward to improve airway space and airflow during sleep. I advised the patient to start with an nxam-xey-orbtaet model and consider a custom-made device if she finds it beneficial. I also emphasized the importance of weight reduction, as a 10% decrease in weight can significantly improve sleep apnea symptoms. For her itchy ears, I prescribed Dermotic ear drops, which contain a steroid mixed with oil. The patient is instructed to use five drops in each ear twice daily for two weeks and then intermittently as needed. The prescription will be sent to the [facility] on [facility] in [place], with refills provided. I recommended follow-up in a couple of months to assess her progress with the oral appliance and ear treatment. At that time, we can address her nasal symptoms and other concerns. [email or web address] Not available 05/28/2025 13:46:07 Plan of Treatment Reminders Order Date Submit Date Provider Last Modified By Organization Details Last Modified Time Details Appointments None recorded. Lab None recorded. Referral None recorded. Procedures None recorded. Surgeries None recorded. Imaging None recorded. Medication Orders DermOtic Oil 0.01 % ear drops 2024 Kimber [facility] #[id number], [phone] [place], [address], 13:44:40 Patient TargetsNo targets recorded. Patient Instructions Encounter Date Encounter Id Patient Instructions Last Modified By Organization Details Last Modified Time 05/28/2025 [id number] - Try an ezvj-ytq-zufsflh oral appliance for sleep apnea. - Use Dermotic ear drops as prescribed. - Follow up in a couple of months to assess progress with treatments. [email or web address] Not available 05/28/2025 13:46:07 Please note: Parts of this encounter note have been generated by AI based on audio conversation. Patient consent was required prior to utilizing this technology. Content review was required prior to finalizing the note. [email or web address] Not available 05/28/2025 13:46:07 Reason for Referral None Reported. Problems Name Problem SNOMED Code Status Onset Date Resolution Date Notes Provider Name and Address Organization Details Recorded Time Obstructive sleep apnea syndrome 82310076 Active 2024 JESS CULP MD [address] [place] [address], [place], [phone], [facility] - [facility] 13:43:27 Itching of ear 550504321 Active 2024 JESS CULP MD [address] [place] [address], [place], [phone], [facility] - [facility] 13:43:47 Allergic rhinitis 66715240 Active 2024 JESS CULP MD [address] [place], [place] [address], [phone], [facility] - [facility] 13:43:54 Severe obesity 9360102971430 4 Active 2024 JESS CULP MD [address] [place], [place] [address], [address], [facility] 13:45:42 Problem Notes None recorded. Procedures Surgical History Date Name Laterality Status Provider Name and Address Organization Details Recorded Time hernia repair completed ROSIBEL KAURElías [facility] 05/28/2025 13:27:37 Imaging Results None recorded. Procedure Notes None recorded. Medical Equipment None Reported. Allergies Allergen ID Allergen Name Allergen Category Reaction Reaction Severity Criticality Documentation Date Start Date Code Code System Note Provider Name and Address Organization Details Recorded Time 693136 lisinopri l medicatio n Not available Not available Not available 05/28/2025 50080 RxNorm ROSIBEL HERNANDEZ delilah [facility] 13:24:16 938674 amlodipin e medicatio n rash Not available Not available 08/29/2025 31961 RxNorm Not Available [facility] - External Data Service - prod 04:41:56 Medications Name Sig Start Date Stop Date Status Note LastModified by Organization Details LastModified Time acetaminoph en 325 mg tablet TAKE 3 TABLETS BY MOUTH EVERY 6 HOURS FOR 5 DAYS 05/28 completed Not Available Not Available Not Available carvedilol 6.25 mg tablet TAKE 1 TABLET BY MOUTH TWICE A DAY WITH FOOD FOR 30 DAYS active Not Available Not Available No t Available carvedilol 12.5 mg tablet TAKE 1 TABLET BY MOUTH TWICE A DAY WITH FOOD active Not Available Not Available No t Available cetirizine 10 mg tablet TAKE 1 TABLET BY MOUTH EVERY DAY FOR 14 DAYS 05/28 completed Not Available Not Available Not Available ibuprofen 800 mg tablet 1 TABLET BY MOUTH 3 TIMES A DAY,X5 DAYS 05/28 completed Not Available Not Available Not Available cephalexin 250 mg capsule TAKE 1 CAPSULE BY MOUTH FOUR TIMES A DAY START AFTER SURGERY. TAKE FOR 5 DAYS. 05/28 completed Not Available Not Available Not Available naltrexone 50 mg tablet TAKE 1 TABLET BY MOUTH EVERY DAY FOR 30 DAYS 05/28 completed Not Available Not Available Not Available ondansetron HCl 4 mg tablet TAKE 1 TABLET BY MOUTH EVERY 8 HOURS,X4 DAYS 05/28 completed Not Available Not Available Not Available prednisone 20 mg tablet TAKE 2 TABLETS BY MOUTH EVERY DAY FOR 5 DAYS 05/28 completed Not Available Not Available Not Available carvedilol 3.125 mg tablet TAKE 1 TABLET BY MOUTH TWICE A DAY WITH FOOD FOR 30 DAYS 05/28 completed Not Available Not Available Not Available pantoprazol e 20 mg tablet,escobar yed release TAKE 1 TABLET BY MOUTH EVERY DAY active Not Available Not Available No t Available famotidine 20 mg tablet TAKE 1 TABLET BY MOUTH TWICE A DAY FOR 7 DAYS 05/28 completed Not Available Not Available Not Available methocarbam ol 750 mg tablet TAKE 1 TABLET BY MOUTH EVERY 8 HOURS 05/28 completed Not Available Not Available Not Available oxycodone 5 mg capsule TAKE 1 CAPSULE BY MOUTH EVERY 6 HOURS NEEDED FOR 15 DAYS 05/28 completed Not Available Not Available Not Available docusate sodium 100 mg capsule TAKE 1 CAPSULE BY MOUTH TWICE A DAY 05/28 completed Not Available Not Available Not Available pravastatin 20 mg tablet TAKE 1 TABLET BY MOUTH EVERY DAY FOR 30 DAYS 05/28 completed Not Available Not Available Not Available hydrochloro thiazide 25 mg tablet TAKE 1 TABLET BY MOUTH EVERY DAY IN THE MORNING FOR 90 DAYS active Not Available Not Available No t Available epinephrine 0.3 mg/0.3 mL injection, auto-inject or INJECT 1 PEN INTRAMUSC ULARLY ONCE. MAY REPEAT IF NECESSARY USE FOR SEVERE ALLERGIC REACTION active Not Available Not Available No t Available estradiol 0.01% (0.1 mg/gram) vaginal cream INSERT 1 GRAM VAGINALLY TWICE PER WEEK AT BEDTIME active Not Available Not Available No t Available lisinopril 40 mg tablet TAKE 1 TABLET BY MOUTH EVERY DAY active Not Available Not Available No t Available dicyclomine 10 mg capsule TAKE 1 CAPSULE BY MOUTH 3 TIMES A DAY,X30 DAYS 30 TO 60 MINUTES BEFORE MEALS 05/28 completed Not Available Not Available Not Available diazepam 5 mg tablet TAKE 1 TABLET BY MOUTH THREE TIMES A DAY NEEDED FOR MUSCLE SPASM FOR 5 DAYS 05/28 completed Not Available Not Available Not Available oxycodone 5 mg tablet 1 TABLET BY MOUTH EVERY 6 HOURS,X3 DAYS NEEDED FOR MODERATE PAIN 05/28 completed Not Available Not Available Not Available rosuvastati n 5 mg tablet TAKE 1 TABLET BY MOUTH EVERY DAY FOR 30 DAYS 05/28 completed Not Available Not Available Not Available bupropion HCl XL 300 mg 24 hr tablet, extended release TAKE 1 TABLET BY MOUTH EVERY DAY IN THE MORNING FOR 90 DAYS active Not Available Not Available No t Available bupropion HCl XL 150 mg 24 hr tablet, extended release TAKE 1 TABLET BY MOUTH EVERY DAY IN THE MORNING FOR 30 DAYS 05/28 completed Not Available Not Available Not Available fluocinolon e acetonide oil 0.01 % ear drops INSTILL 5 DROPS INTO AFFECTED EAR TWICE A DAY active Not Available Not Available No t Available carvedilol phosphate ER 20 mg capsule,ext .[id number] r multiphase TAKE 1 CAPSULE BY MOUTH EVERY DAY WITH FOOD. active Not Available Not Available No t Available Ozempic 0.25 mg or 0.5 mg (2 mg/3 mL) subcutaneou s pen injector INJECT 0.25MG SUBUTANEO USLY ONCE WEEKLY FOR 4 WEEKS THEN INCREASE TO 0.5MG THEREAFTE R active Not Available Not Available No t Available Vitals Date Recorded Body height Body mass index (BMI) Body weight Provider Name and Address Organization Details Last Updated DateTime 05/28/2025 165.1 cm 31.3 kg/m2 72518.37 g ROSIBEL [facility] - [facility] 05/28/2025 13:23:11 Social History None recorded. Functional Status Question Answer Note LastModified by Organizat ion Details LastModified Time What is your level of alcohol consumption? Occasional ccomi Information not available 05/28/2025 Mental Status None recorded. Family History Nothing Reported. Medical History Condition Response Headaches Y Hypertension Y Gynecological HistoryNo gynecological history recorded. Obstetrics History GPAL:G 0 P 0 0 0 0 Past Encounters Encounter ID Performer Location Encounter Start Date Encounter Closed Date Diagnosis/Indication Diagnosis SNOMED-CT Code Diagnosis ICD10 Code Diagnosis IMO Codes Diagnosis Note [id number] JESS CULP MD [facility] [address] [address] 05/28/2025 13:00:09 05/28/2025 13:46:14 Obstructive sleep apnea syndrome 56657387 G47.33 68924 Itching of ear 381433823 L29.9 6768712 Allergic rhinitis 608817 04 J30.89 1934139 Severe obesity 606781369 1 9104 E66.01 357910 Health Concerns Section Related Observation LastModified by Organization Detai ls LastModified Time None Recorded Concern Status LastModified by Organization Details LastModified Time None Recorded Advance Directives Directive None Recorded Payers Insurance Date Sequence Insurance Name Policy Number Policy Haas Covered Member ID Haas Member ID Guarantor Name 08/26/2025 2 [employer] ([employer]) [id number] Francisco Paul [id number] Evelyn Paul 08/26/2025 1 [employer]) [id number] Evelyn Paul [id number] Evelyn Paul Notes Date Note Type Note Provider Name and Address Organization Details Recorded Time 05/28/2025 text/html ISA 03/21/[address] Melissa Yousif BMI 31 AHI 8.2 Central and mixed none recorded CPAP trial - poor tolerance APAP and continues to snore with low residual AHI Evelyn Paul is a 54-year-old female who presents for evaluation of sleep apnea. She reports difficulty initiating sleep, waking up startled due to an inability to breathe, and feeling tired during the day with a need for naps. She typically goes to bed around 9:00 PM to 10:00 PM but does not fall asleep until 11:00 PM to midnight, and she wakes up around 3:00 AM to 4:00 AM, staying awake for approximately an hour before attempting to sleep again. A home sleep study performed on 03/21/2024 demonstrated mild sleep apnea with an AHI score of 8. She has tried CPAP therapy but found the mask intolerable due to discomfort, drooling, and rashes around her mouth. She has not tried other devices such as oral appliances. Her medical history includes gastric bypass surgery in 2016, with an initial weight loss of 50 pounds, though she has regained approximately 30 pounds since the COVID pandemic. She denies smoking, vaping, or marijuana use. 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 No history of nasal or throat surgery was reported, and her tonsils remain intact. JESS CULP MD [address] [place] [address], [phone], [facility] - [facility] 05/28/2025 13:46:54 OBGyn Episode No OBEpisode recorded.
== END 2025-09-09 13:24 | disposition home or self-care (01) ==
LOC: HO.HCS 12:59
PROVIDERS: PCP Hospitalist
DX: R00.2 Palpitations (principal); I10 Essential (primary) hypertension
CPT/HCPCS: 93010; 99213

== ENCOUNTER → 2025-09-09 12:58 | Outpatient (BNVA) | payer BC, SELFPAY | PROVIDERS: PCP Hospitalist | DX: R00.2 Palpitations (principal); I10 Essential (primary) hypertension | CPT/HCPCS: 93005 ==